=== PATIENT | female | born 1950 | race Caucasian/White ===

== ENCOUNTER → 2016-04-13 | Day surgery (SDC) | payer OTHER, MEDICAID ==
[~2016-04-13] MED LIST: FLUMAZENIL 0.5 MG/5 ML MDV IVP ONE; HEPARIN 1000 UNIT/1 ML MDV ONE; IOPAMIDOL (ISOVUE-300) 100 ML BTL IV ONE; LABETALOL HCL 5 MG/ML 20 ML MDV ONE; MIDAZOLAM 2 MG/2 ML VIAL ONE; NALOXONE HCL 0.4 MG/ML INJ ONE; PROTAMINE SULFATE 50 MG/5 ML VIAL IVP ONE; fentaNYL 100 MCG/2 ML INJ ONE
--- NOTE | 2016-04-13 18:56 | IR ---
Angiography of Left Brachial Arteriovenous Fistula Venography of Left Hemithorax Balloon Angioplasty of Left Brachial and Basilic Veins History: Prolonged bleeding after dialysis. Previous balloon angioplasty of stenotic outflow vein on January 20, 2016, using 6 mm diameter balloon. The patient says that she had little clinical improvem ent in the problem with prolonged bleeding following that procedure. Consent: Risks and benefits of the procedure were discussed in detail, and informed consent was obta ined. The patient and her daughter accepted risks of bleeding, damage to the fistula, infection, and pulmonary embolism. Medications: Intravenous conscious sedation and analgesia were given under my supervision. Vital sign s, pulse oximetry, and electrocardiogram were monitored. The patient received 2 milligrams of Versed and 100 micrograms of fentanyl intravenously. Other intravenous medications included 20 mg of labetal ol, 2500 units of heparin, and 20 mg of protamine sulfate. Start time: 1003. End time: 1055. Fluoroscopy time in minutes: 4.2. Estimated exposure in milligray: 26. Technique: The left arm antecubital fossa was prepped and draped in sterile fashion. All elements of maximal sterile barrier technique were used, including cap, mask, sterile gown, sterile gloves, large sterile sheath, hand hygiene, and 2% chlorhexidine for cutaneous antisepsis. 1% Xylocaine was used f or local anesthetic. A 4-Mexican microintroducer was placed into the outflow vein of the arteriovenous fistula of the left antecubital fossa, and angiography of the outflow vein was performed. 0.035 long tapered Roadrunner wire was followed by a 6-Mexican sidearm sheath, allowing coaxial placement of a 6 mm diameter x 4 cm long angioplasty balloon, which was used to dilate the outflow vein in 2 places a t upper left humeral levels. A 7 mm diameter x 2 cm long balloon was used to dilate the stenosis at m id humeral level. Reflux angiography of the arterial venous anastomosis was performed by injecting th e sidearm sheath before and following deflation of the balloon. Then, the vein was dilated about 4 cm downstream of the arteriovenous anastomosis with the 7 mm balloon. Angiography of the vein was perfo rmed to assess results. Central venography of left hemithorax was performed. The 7 mm balloon was inf lated at the level of apparent stenosis of left subclavian vein where it passes between the left clav icle and left first rib. There was no waist on the balloon, and the balloon could easily be moved to and fro through this level of apparent stenosis on angiogram. Additional angioplasty was not pursued. Balloon catheter, wire, and the sidearm sheath were removed. Hemostasis was obtained by manual compr ession with a Thrombix patch. The patient tolerated the procedure well and was returned to postproced ure recovery for observation. Findings: The outflow left brachial vein has 50% stenoses at a level 4 cm downstream of the arteriove nous anastomosis, at mid humeral level where the vein has a transverse orientation, and at upper stephanie ral level in 2 different places, the first of which is a 3 cm long segment of irregular vein. Followi ng balloon angioplasty, each site is improved except for the irregular segmental stenosis at upper hu merus level, where improvement is limited and a small amount of extravasation of contrast is demonstr ated. Later, during repeat arteriography, only trace of extravasation is found. Centrally, a smooth s tenosis of the left subclavian vein at the level of the overlap of clavicle and first rib causes no w aist on the 7 mm diameter balloon, which could easily be passed through this area even while inflated . Left axillary vein, brachiocephalic vein, and superior vena cava are widely patent. Impressions: 1. Multifocal stenoses of fistula vein of upper left arm. 2. 7 mm diameter balloon angioplasty of stenoses, with good results at 3 out of 4 of the stenoses. 3. Limited extravasation from one of the angioplasty sites at upper humeral level, with no flow limit ation. 4. Mild stenosis of left subclavian vein. Recommendation: Follow-up angiography in 3 months, or sooner, if problems arise. - - - - - - - - - - - - - - - - - - - - - - - - - - - - - (PQRS measures: Current medications were listed in the medical record, including all known prescripti ons, [id number]-[id number] medications, herbal medications, and nutritional supplements. Tobacco use: None . Prophylactic antibiotic:Unnecessary. VTE prophylaxis: The patient received 2500 units of heparin, i ntravenously.)
== END | disposition home or self-care (01) ==
LOC: FIMAGING 07:46
PROVIDERS: ATTEND Internal Medicine Nephrology
PROC: 057A3ZZ Dilation of Left Brachial Vein, Percutaneous Approach (ICD-10-PCS; principal; 2016-04-13 11:10)
PROC: 057C3ZZ Dilation of Left Basilic Vein, Percutaneous Approach (ICD-10-PCS; principal; 2016-04-13 11:10)
DX: T82.858A Stenosis of other vascular prosthetic devices, implants and grafts, initial encounter (principal); I12.9 Hypertensive chronic kidney disease with stage 1 through stage 4 chronic kidney disease, or unspecified chronic kidney disease; E11.22 Type 2 diabetes mellitus with diabetic chronic kidney disease; I25.10 Atherosclerotic heart disease of native coronary artery without angina pectoris; Z95.5 Presence of coronary angioplasty implant and graft; E03.9 Hypothyroidism, unspecified; N18.9 Chronic kidney disease, unspecified
CPT/HCPCS: C1725; C1769; C1894; J1644; J2250; J2310; J2720; J3010; J3490; Q9967

== ENCOUNTER 2016-04-22 06:30 | Observation (INO) | payer MEDICAID, OTHER ==
--- NOTE | 2016-04-22 06:42 | CPEKG ---
Heart Rate: 58 RR Interval: 1034 P-R Interval: 164 QRSD Interval: 108 QT Interval: 496 QTC Interval: 488 P Lancaster: 24 QRS Lancaster: -26 T Wave Lancaster: 169 EKG Severity - ABNORMAL ECG - EKG Impression: SINUS RHYTHM EKG Impression: INCOMPLETE RIGHT BUNDLE BRANCH BLOCK EKG Impression: LVH WITH SECONDARY REPOLARIZATION ABNORMALITY EKG Impression: BORDERLINE PROLONGED QT INTERVAL EKG Impression: Similar to previous Electronically Signed By: Howard Barrios 22-Apr-2016 07:14:57
[2016-04-22] MEDS ORDERED: MAALOX/LIDO/HYOSC GI COCKTAIL 55 ML BOTTLE PO ONE (06:48)
[2016-04-22] MEDS ORDERED: MAALOX/LIDO/HYOSC GI COCKTAIL 55 ML BOTTLE ONE (06:49)
[2016-04-22] MEDS ORDERED: ONDANSETRON 4 MG/2 ML VIAL IVP ONE (06:52)
[2016-04-22 06:55] LABS: % IMMATURE GRANULYOCYTES 0.4 % (0.0-1.1); ABSOLUTE IMMATURE GRANULOCYTES 0.01 10^3/uL (0.00-0.10); ADD DIFF? NO; ADD MORPH? NO; ADD SCAN? NO; ATYPICAL LYMPHOCYTE FLAG 10 (0-99); FRAGMENT RBC FLAG 0 (0-99); HEMATOCRIT 32.4 % (38.0-47.0); HEMOGLOBIN 10.7 g/dL (12.6-16.3); LEFT SHIFT FLG 0 (0-99); LIPEMIA HEMOLYSIS FLAG 80 (0-99); MEAN CELL HEMOGLOBIN 31.7 pg (27.9-34.1); MEAN CELL VOLUME 95.9 fL (81.5-99.8); MEAN PLATELET VOLUME 10.4 fL (8.7-11.7); PLATELET CLUMPS FLAG 10 (0-99); PLATELET COUNT 68 10^3/uL (150-400); RED BLOOD CELL COUNT 3.38 10^6/uL (4.18-5.33); RED CELL DISTRIBUTION WIDTH 14.4 % (11.5-15.2)
[2016-04-22] MEDS ORDERED: fentaNYL 100 MCG/2 ML INJ IVP ONE (06:59)
[2016-04-22] MEDS ORDERED: fentaNYL 100 MCG/2 ML INJ ONE (07:01)
[2016-04-22 07:13] LABS: ANION GAP 16 mEq/L (8-16); CALCIUM 9.4 mg/dL (8.5-10.4); CARBON DIOXIDE 25 mEq/l (22-31); CHLORIDE 103 mEq/L (97-110); GLOMERULAR FILTRATION RATE 11; GLUCOSE 133 mg/dL (70-100); POTASSIUM 4.4 mEq/L (3.5-5.2); SODIUM 144 mEq/L (134-144)
--- NOTE | 2016-04-22 07:18 | EDPHY ---
H & P Stated Complaint: epigastric chest pain and RUQ abdominal pain 12/20 since 05 Time Seen by Provider: 04/22/16 06:59 HPI/ROS: CHIEF COMPLAINT: Chest and epigastric pain HISTORY OF PRESENT ILLNESS: The patient is a 65-year-old female with a history of his CHF, diabetes, renal failure on dialysis with a left arm fistula and coronary artery disease with 2 stents. She also had a myocardial perforation after catheter placement 2 years ago that required cardiac repair. She comes to the emergency department complaining of chest pain that began around 530 this morning and radiates to her back. She denies shortness of breath. It is now radiating to her epigastrium and right upper quadrant. She has a history of cholecystectomy. History of liver or pancreatic disease. No nausea vomiting. She was diaphoretic initially but is not now. She has not had a fever or recent illness. She did have some clotting of her fistula in the left arm 2 weeks ago and her son states that she had 3 balloons placed in it. REVIEW OF SYSTEMS: Constitutional: denies: chills, fever, recent illness, recent injury EENTM: denies: blurred vision, double vision, nose congestion Respiratory: denies: cough, shortness of breath Cardiac: See HPI Gastrointestinal/Abdominal: denies: abdominal pain, diarrhea, nausea, vomiting, blood streaked stools Genitourinary: denies: dysuria, frequency, hematuria, pain Musculoskeletal: denies: joint pain, muscle pain Skin: denies: lesions, rash, jaundice, bruising Neurological: denies: headache, numbness, paresthesia, tingling, dizziness, weakness Hematologic/Lymphatic: denies: blood clots, easy bleeding, easy bruising Immunologic/allergic: denies: HIV/AIDS, transplant EXAM: GENERAL: Well-appearing, well-nourished and in no acute distress. HEAD: Atraumatic, normocephalic. EYES: Pupils equal round and reactive to light, extraocular movements intact, sclera anicteric, conjunctiva are normal. ENT: TMs normal, nares patent, oropharynx clear without exudates. Moist mucous membranes. NECK: Normal range of motion, supple without lymphadenopathy or JVD. LUNGS: Breath sounds clear to auscultation bilaterally and equal. No wheezes rales or rhonchi. HEART: Loud systolic murmur, regular rhythm ABDOMEN: Epigastric pain and mild tenderness, no rebound or guarding BACK: No CVA tenderness, no spinal tenderness, step-offs or deformities EXTREMITIES: Normal range of motion, no pitting or edema. No clubbing or cyanosis. NEUROLOGICAL: Cranial nerves II through XII grossly intact. Normal speech, normal gait. 5/5 strength, normal movement in all extremities, normal sensation PSYCH: Normal mood, normal affect. SKIN: Warm, dry, normal turgor, no visible rashes or lesions. Source: Patient, Family, Old records Exam Limitations: No limitations - Personal History Current Tetanus Diphtheria and Acellular Pertussis (TDAP): Yes Tetanus Vaccine Date: per previous admission - Medical/Surgical History Hx Asthma: No Hx Chronic Respiratory Disease: No Hx Diabetes: Yes Hx Cardiac Disease: Yes Hx Renal Disease: Yes Hx Cirrhosis: No Hx Alcoholism: No Hx HIV/AIDS: No Hx Splenectomy or Spleen Trauma: No Other PMH: CHF,RENAL DIALYSIS T/TH/SAT, HTN, KIDNEY DISEASE, STRESS-DEPRESSION, ABDOMINAL AND LEG CRAMPING DURING DIALYSIS PULMONARY HTN, SLEEP APNEA O2 AT NIGHT, left arm fistula, myocardial surgical repair, cholecystectomy, cardiac stenting - Family History Significant Family History: Hypertension - Social History Smoking Status: Never smoked Alcohol Use: Sober Drug Use: None Constitutional: Initial Vital Signs Temperature (C) 36.6 C 04/22/16 06:40 Heart Rate 56 L 04/22/16 06:40 Respiratory Rate 22 H 04/22/16 06:40 Blood Pressure 176/73 H 04/22/16 06:40 O2 Sat (%) 96 04/22/16 06:40 O2 Delivery Mode Nasal Cannula O2 (L/minute) 2 Allergies/Adverse Reactions: aspirin Allergy (Verified 04/22/16 06:40) morphine Allergy (Verified 04/22/16 06:40) NSAIDS (Non-Steroidal Anti-Inflamma Allergy (Verified 04/22/16 06:40) Home Medications: Medication Instructions Recorded Labetalol HCl [Trandate 100 mg (*)] 100 mg PO BID 08/24/15 amLODIPine BESYLATE [Norvasc 10 mg 10 mg PO DAILY 08/24/15 (*)] Losartan Potassium [Cozaar 50 mg 100 mg PO DAILY 09/22/15 (*)] hydrALAZINE [Apresoline] 25 mg PO DAILY 10/06/15 Levothyroxine [Synthroid 100 mcg 100 mcg PO DAILY06 01/16/16 (*)] Medical Decision Making - Diagnostics EKG Interpretation: An EKG obtained and was read and documented in trace view. Please see trace view for full reading and report. Sinus rhythm, LVH with repolarization abnormality, T-wave inversions similar to previous Imaging: Results: CT scan of the chest angiogram was obtained. The results of the study are negative for acute dissection or PE or pericardial effusion . The study was read by Dr. Jason Cruz. I viewed the images myself on the PACS system. ED Course/Re-evaluation: We discussed the patient's initial lab work and CT scan. They are reassuring. I will admit her for continued chest pain. I spoke with hospital service agrees. Differential Diagnosis: Partial list of the Differential diagnosis considered include but were not limited to; acute coronary disease, dissection, pericardial effusion, PE and although unlikely based on the history and physical exam, I also considered pneumonia, pneumothorax, biliary disease, hepatitis. - Data Points Laboratory Results: Laboratory Results 04/22/16 06:45 04/22/16 06:45 04/22/16 06:45 WBC 2.51 L 10^3/uL (3.80-9.50) RBC 3.38 L 10^6/uL (4.18-5.33) Hgb 10.7 L g/dL (12.6-16.3) Hct 32.4 L % (38.0-47.0) MCV 95.9 fL (81.5-99.8) MCH 31.7 pg (27.9-34.1) MCHC 33.0 g/dL (32.4-36.7) RDW 14.4 % (11.5-15.2) Plt Count 68 L 10^3/uL (150-400) MPV 10.4 fL (8.7-11.7) Neut % (Auto) 67.3 % (39.3-74.2) Lymph % (Auto) 22.3 % (15.0-45.0) Sebastian % (Auto) 9.6 % (4.5-13.0) Eos % (Auto) 0.0 L % (0.6-7.6) Baso % (Auto) 0.4 % (0.3-1.7) Nucleat RBC Rel Count 0.0 % (0.0-0.2) Absolute Neuts (auto) 1.69 L 10^3/uL (1.70-6.50) Absolute Lymphs (auto) 0.56 L 10^3/uL (1.00-3.00) Absolute Monos (auto) 0.24 L 10^3/uL (0.30-0.80) Absolute Eos (auto) 0.00 L 10^3/uL (0.03-0.40) Absolute Basos (auto) 0.01 L 10^3/uL (0.02-0.10) Absolute Nucleated RBC 0.00 10^3/uL (0-0.01) Immature Gran % 0.4 % (0.0-1.1) Immature Gran # 0.01 10^3/uL (0.00-0.10) Sodium 144 mEq/L (134-144) Potassium 4.4 mEq/L (3.5-5.2) Chloride 103 mEq/L (97-110) Carbon Dioxide 25 mEq/l (22-31) Anion Gap 16 mEq/L (8-16) BUN 24 H mg/dL (7-23) Creatinine 4.0 H mg/dL (0.6-1.0) Estimated GFR 11 Glucose 133 H mg/dL (70-100) Calcium 9.4 mg/dL (8.5-10.4) Total Bilirubin 1.4 mg/dL (0.1-1.4) Conjugated Bilirubin 0.9 H mg/dL (0.0-0.5) Unconjugated Bilirubin 0.5 mg/dL (0.0-1.1) AST 72 H IU/L (14-46) ALT 50 IU/L (9-52) Alkaline Phosphatase 127 H IU/L (38-126) Troponin I 0.024 ng/mL (0-0.034) Total Protein 6.7 g/dL (6.3-8.2) Albumin 4.1 g/dL (3.5-5.0) Lipase 129.0 IU/L (23-300) Medications Given: Discontinued Medications Fentanyl (Sublimaze) 0 mcg IVP EDNOW ONE Stop: 04/22/16 07:00 Last Admin: 04/22/16 07:05 Dose: 100 mcg Hydromorphone HCl (Dilaudid) 1 mg IVP EDNOW ONE Stop: 04/22/16 09:54 Last Admin: 04/22/16 09:58 Dose: 1 mg Miscellaneous Medication (Gi Cocktail) 55 ml PO EDNOW ONE Stop: 04/22/16 06:49 Last Admin: 04/22/16 06:48 Dose: 55 ml Ondansetron HCl (Zofran) 4 mg IVP EDNOW ONE Stop: 04/22/16 06:53 Last Admin: 04/22/16 06:55 Dose: 4 mg Departure - Departure Disposition: [facility] Inpatient Acute Clinical Impression: Chest pain Qualifiers: Chest pain type: unspecified Qualifier Code: (R07.9) Chest pain, unspecified Condition: Fair
[2016-04-22 07:22] LABS: TROPONIN I 0.024 ng/mL (0-0.034)
[2016-04-22] MEDS ORDERED: IOPAMIDOL (ISOVUE 370) 100 ML BTL IV ONE (07:24)
[2016-04-22 07:36] LABS: ALBUMIN 4.1 g/dL (3.5-5.0); BILIRUBIN,TOTAL 1.4 mg/dL (0.1-1.4); BILIRUBIN-CONJUGATED 0.9 mg/dL (0.0-0.5); BILIRUBIN-UNCONJUGATED 0.5 mg/dL (0.0-1.1); TOTAL PROTEIN 6.7 g/dL (6.3-8.2)
--- NOTE | 2016-04-22 08:22 | CT ---
CT Pulmonary Angiogram Clinical Indications: Chest pain in a 65-year-old female; evaluate for pulmonary embolic disease. Technique: Thinly collimated multidetector helical CT imaging was performed through the chest while 90 mL of Isovue-370 were injected intravenously without complication. The images were obtained at 4 mm thickness and reconstructed at 1.5 mm thickness. Sagittal and coronal reconstructions were perform ed. The examination is reviewed on the workstation by the interpreting physician at multiple window/l evel settings. Dose reduction techniques were utilized. Findings: Chest: There is minimal basilar atelectasis, otherwise, the lungs are clear. The heart is enlarged. P rominent coronary arterial calcifications are noted. There may be a minimal pericardial effusion. No pleural effusion is identified. Mild elevation of the right hemidiaphragm is seen. Hilar and mediasti nal contours are normal. There are no masses or noncalcified pulmonary nodules. The upper abdomen is negative for acute abnormality on this arterial phase study. CT Pulmonary Angiogram: The pulmonary arterial system is well opacified. No intraluminal filling d efects are seen to suggest acute or chronic pulmonary embolic disease. No vascular malformations are seen. The thoracic aorta has a normal contour without evidence of aneurysm or dissection. There is m inimal calcified aortic plaque formation. There is also calcification at the origin of the left subcl brad artery. Impression: 1. No evidence of pulmonary embolic disease. 2. Cardiac enlargement with associated prominent coronary arterial calcifications. 3. See above report for additional findings. Results called and discussed with RAI REYES at 04/22/2016 8:17
--- NOTE | 2016-04-22 09:09 | DX ---
AP Upright and Lateral Views of the Chest April 22, 2016, at 7:37 a.m. Clinical History: 65-year-old female with chest pain. Comparison Studies: Chest, dated January 16, 2016, October 18, 2015, September 27, 2015, and September 26, 2015. Findings: There are three persistent preethi projected over the left anterolateral chest, present on previous studies from 2016, and some surgical clips in the upper abdomen. The cardiac silhouette veronica ins enlarged. There is mild peribronchial thickening. There is no alveolar consolidation, peripheral interstitial edema, or pleural effusion. The pulmonary vasculature is equalized. Telemetry monitoring lead lines and oxygen tubing are present. The osseous structures are age-appropriate. Impression: Cardiomegaly with mild pulmonary venous hypertension, but no focal infiltrate or cardioge jacek pulmonary edema. The patient had a CTA of the chest this morning, and that report should also be referenced.
[2016-04-22] MEDS ORDERED: HYDROmorphONE/DILAUDID 1 MG/ML SYR IVP ONE (09:53)
[2016-04-22] MEDS ORDERED: ONDANSETRON 4 MG/2 ML VIAL IVP PRN (13:26)
[2016-04-22] MEDS ORDERED: ONDANSETRON DISINTEGRATING 4 MG TAB PO PRN (13:26)
[2016-04-22] MEDS ORDERED: ACETAMINOPHEN 325 MG TAB PO PRN (13:26)
[2016-04-22] MEDS ORDERED: PROMETHAZINE HCL 25 MG TAB PO PRN (14:36)
[2016-04-22] MEDS ORDERED: PROMETHAZINE HCL 25 MG/ML INJ IVP PRN (14:36)
[2016-04-22] MEDS ORDERED: HYDROmorphONE/DILAUDID 2 MG TAB PO PRN (14:37)
[2016-04-22] MEDS ORDERED: HYDROmorphONE/DILAUDID 1 MG/ML SYR IVP PRN (14:37)
[2016-04-22] MEDS: hydrALAZINE 25 MG TAB PO SCH (15:33)
[2016-04-22] MEDS: SIMETHICONE 80 MG TAB CHEW PO PRN (15:52)
--- NOTE | 2016-04-22 17:52 | PDGENHP ---
History and Physical - Chief Complaint Acute chest pain - History of Present Illness PCP Dr. Bowman Primary medical biller coder: Dr. Cruz HPI: 65-year-old female presents with acute chest pain characterized as a sharp bloating discomfort located in the mid chest as well as mid epigastric area and upper abdomen with associated diaphoresis and bloating as well as increased flatulence on the day prior to this presentation. The onset of her chest discomfort was 5:30 a.m. occurred while she was making her son breakfast. She reports that radiated to her back and was immediately associated with an overwhelming feeling of warmth. Duration was persistent thereafter and the abdominal component to the symptoms as persisted up until the time of receiving some pain medication in the emergency department which seemed to modestly alleviate the symptoms. She reports that she had a normal bowel movement on the morning of this presentation and she does not regularly make urine. She did attempt oral intake on the morning of this presentation but water and a GI cocktail seemed to exacerbate her abdominal symptoms. Prior to this presentation, the patient reports that she had otherwise been feeling well. She expresses that she is not particularly physically active but she is able to ambulate up stairs without becoming particularly short of breath. She has otherwise been taking all of her home medications and they are not recently been any changes. She reports that she went to hemodialysis on the day prior to this presentation. History Information - Allergies/Home Medication List Allergies/Adverse Reactions: aspirin Allergy (Verified 04/22/16 06:40) morphine Allergy (Verified 04/22/16 06:40) NSAIDS (Non-Steroidal Anti-Inflamma Allergy (Verified 04/22/16 06:40) Home Medications: Labetalol HCl [Trandate 100 mg (*)] 100 mg PO BID 08/24/15 [Last Taken 04/21/16] amLODIPine BESYLATE [Norvasc 10 mg (*)] 10 mg PO DAILY 08/24/15 [Last Taken 11/27] Losartan Potassium [Cozaar 50 mg (*)] 100 mg PO DAILY 09/22/15 [Last Taken 04/21] hydrALAZINE [Apresoline] 25 mg PO DAILY 10/06/15 [Last Taken 04/21/16] Levothyroxine [Synthroid 100 mcg (*)] 100 mcg PO DAILY06 01/16/16 [Last Taken ] I have personally reviewed and updated: family history, medical history, social history, surgical history - Past Medical History coronary artery disease (With prior PCI), CHF (Diastolic), diabetes type 2, ESRD (On Monday hemodialysis), hyperlipidemia Additional medical history: ESRD on HD TTS via R femoral vein tunneled catheter. DM2 (not currently on meds). HTN with labile BP. CAD s/p PCI. h/o cardiac tamponade requiring thoractomy to repair cardiac injury sustained with dialysis catheter placement (09/2015). Serratia bacteremia from infected catheter site - Surgical History Additional surgical history: LUE AV fistula. Cholecystectomy. Thoractomy for cardiac injury repair - Family History Additional family history: Brother: CKD - Social History Smoking Status: Never smoked Alcohol Use: Sober Drug Use: None Additional social history: Pt currently lives with son, is independent in ADLs. Review of Systems ROS: 10pt was reviewed & negative except for what was stated in HPI & below Gastrointestinal: Reports: vomitting, abdominal pain, other (Blood) Physical Exam Temp Pulse Resp BP Pulse Ox 36.6 C 58 L 18 175/80 H 97 04/22/16 15:28 04/22/16 15:28 04/22/16 15:28 04/22/16 15:33 04/22/16 15:28 O2 (L/minute) 2 Constitutional: no apparent distress, appears nourished, chronically ill appearing, uncomfortable Eyes: PERRL, anicteric sclera, EOMI Ears, Nose, Mouth, Throat: moist mucous membranes, hearing normal, ears appear normal, no oral mucosal ulcers Cardiovascular: systolic murmur (3/6 systolic murmur at the sternum and apex), edema (Trace bilateral lower extremity), No irregularly irregular, No tachycardia Respiratory: no respiratory distress, no rales or rhonchi, clear to auscultation Gastrointestinal: tenderness (Mild to moderate palpation), distension ( Moderately), other (Bloated), No normoactive bowel sounds (Hyperactive bowel sounds), No guarding Skin: warm, normal color, no rashes or abrasions, no fluctuance, no induration, other (No erythema at the AV fistula site), No mottled Neurologic: AAOx3, sensation intact bilaterally, No weakness Psychiatric: interacting appropriately, not anxious, not encephalopathic, thought process linear Lab Data & Imaging Review 04/22/16 06:45 04/22/16 06:45 WBC 2.51 10^3/uL (3.80-9.50) L 04/22/16 06:45 RBC 3.38 10^6/uL (4.18-5.33) L 04/22/16 06:45 Hgb 10.7 g/dL (12.6-16.3) L 04/22/16 06:45 Hct 32.4 % (38.0-47.0) L 04/22/16 06:45 MCV 95.9 fL (81.5-99.8) 04/22/16 06:45 MCH 31.7 pg (27.9-34.1) 04/22/16 06:45 MCHC 33.0 g/dL (32.4-36.7) 04/22/16 06:45 RDW 14.4 % (11.5-15.2) 04/22/16 06:45 Plt Count 68 10^3/uL (150-400) L 04/22/16 06:45 MPV 10.4 fL (8.7-11.7) 04/22/16 06:45 Neut % (Auto) 67.3 % (39.3-74.2) 04/22/16 06:45 Lymph % (Auto) 22.3 % (15.0-45.0) 04/22/16 06:45 [place] % (Auto) 9.6 % (4.5-13.0) 04/22/16 06:45 Eos % (Auto) 0.0 % (0.6-7.6) L 04/22/16 06:45 Baso % (Auto) 0.4 % (0.3-1.7) 04/22/16 06:45 Nucleat RBC Rel Count 0.0 % (0.0-0.2) 04/22/16 06:45 Absolute Neuts (auto) 1.69 10^3/uL (1.70-6.50) L 04/22/16 06:45 Absolute Lymphs (auto) 0.56 10^3/uL (1.00-3.00) L 04/22/16 06:45 Absolute Monos (auto) 0.24 10^3/uL (0.30-0.80) L 04/22/16 06:45 Absolute Eos (auto) 0.00 10^3/uL (0.03-0.40) L 04/22/16 06:45 Absolute Basos (auto) 0.01 10^3/uL (0.02-0.10) L 04/22/16 06:45 Absolute Nucleated RBC 0.00 10^3/uL (0-0.01) 04/22/16 06:45 Immature Gran % 0.4 % (0.0-1.1) 04/22/16 06:45 Immature Gran # 0.01 10^3/uL (0.00-0.10) 04/22/16 06:45 Sodium 144 mEq/L (134-144) 04/22/16 06:45 Potassium 4.4 mEq/L (3.5-5.2) 04/22/16 06:45 Chloride 103 mEq/L (97-110) 04/22/16 06:45 Carbon Dioxide 25 mEq/l (22-31) 04/22/16 06:45 Anion Gap 16 mEq/L (8-16) 04/22/16 06:45 BUN 24 mg/dL (7-23) H 04/22/16 06:45 Creatinine 4.0 mg/dL (0.6-1.0) H 04/22/16 06:45 Estimated GFR 11 04/22/16 06:45 Glucose 133 mg/dL (70-100) H 04/22/16 06:45 Calcium 9.4 mg/dL (8.5-10.4) 04/22/16 06:45 Total Bilirubin 1.4 mg/dL (0.1-1.4) 04/22/16 06:45 Conjugated Bilirubin 0.9 mg/dL (0.0-0.5) H 04/22/16 06:45 Unconjugated Bilirubin 0.5 mg/dL (0.0-1.1) 04/22/16 06:45 AST 72 IU/L (14-46) H 04/22/16 06:45 ALT 50 IU/L (9-52) 04/22/16 06:45 Alkaline Phosphatase 127 IU/L (38-126) H 04/22/16 06:45 Troponin I 0.024 ng/mL (0-0.034) 04/22/16 06:45 Total Protein 6.7 g/dL (6.3-8.2) 04/22/16 06:45 Albumin 4.1 g/dL (3.5-5.0) 04/22/16 06:45 Lipase 129.0 IU/L (23-300) 04/22/16 06:45 Visualized and Interpreted Chest x-ray results: Yes Chest X-Ray results: other (Mild pulmonary vascular congestion) Visualized and Interpreted EKG results: Yes EKG Interpretation: Positive for: other (Incomplete right bundle branch block with T-wave inversions diffusely throughout) Assessment & Plan Assessment: 65-year-old female presents with acute chest pain in the setting of end-stage renal disease Plan: 1. Chest pain. Acute, new problem this provider, further workup is indicated. Given patient's end-stage renal disease she is high risk for acute coronary syndrome and obstructive coronary process. That being said, patient's presentation is more consistent with viral gastroenteritis given that she has reproducible abdominal symptoms with bloating, hyperactive bowel sounds, abdominal tenderness which seem to predominate her symptomology -cycle troponins -continue monitor on telemetry -treat supportively with pain medication, antiemetics, simethicone 2. ESRD. Chronic, on HD TTHS, Nephrology notified of patient and will perform HD tomorrow -reviewed outside records including 01/22/[address] Carolyn Dial characterizing most recent hospitalization for serratia bacteremia from infected catheter, was removed, received levofloxacin and follows up with Dr. Bullock as outpatient 3. Chronic diastolic CHF. No e/o acute exacerbation, cont anti-HTN Rx 4. CAD. S/p PCI, cont home Rx 5. Anemia of ESRD. No e/o bleed, cont to monitor Diet. Bowel rest, adv in AM if abd symptoms improved PPx. High risk, pharm contraindicated given thrombocytopenia, place SCDs Code. Full Dispo. ADD 04/23, pending further w/u above. D/w Hannah Bonner, she has signed out patient to me for evaluation.
[2016-04-22] MEDS: LABETALOL HCL 100 MG TAB PO SCH (20:07)
[2016-04-22] MEDS: PANTOPRAZOLE SODIUM 40 MG in NS 100 ML IV SCH (22:05)
[2016-04-23 05:27] LABS: % IMMATURE GRANULYOCYTES 0.4 % (0.0-1.1); ABSOLUTE IMMATURE GRANULOCYTES 0.01 10^3/uL (0.00-0.10); ADD DIFF? NO; ADD MORPH? NO; ADD SCAN? NO; ATYPICAL LYMPHOCYTE FLAG 20 (0-99); FRAGMENT RBC FLAG 0 (0-99); HEMATOCRIT 31.2 % (38.0-47.0); HEMOGLOBIN 10.2 g/dL (12.6-16.3); LEFT SHIFT FLG 0 (0-99); LIPEMIA HEMOLYSIS FLAG 80 (0-99); MEAN CELL HEMOGLOBIN 31.4 pg (27.9-34.1); MEAN CELL HEMOGLOBIN CONCENTR. 32.7 g/dL (32.4-36.7); MEAN PLATELET VOLUME 10.6 fL (8.7-11.7); PLATELET CLUMPS FLAG 0 (0-99); PLATELET COUNT 62 10^3/uL (150-400); RED BLOOD CELL COUNT 3.25 10^6/uL (4.18-5.33); RED CELL DISTRIBUTION WIDTH 14.8 % (11.5-15.2)
[2016-04-23 05:47] LABS: ALANINE AMINOTRANSFERASE 150 IU/L (9-52); ALBUMIN 3.6 g/dL (3.5-5.0); ALKALINE PHOSPHATASE 135 IU/L (38-126); ANION GAP 12 mEq/L (8-16); ASPARTATE AMINOTRANSFERASE 137 IU/L (14-46); BILIRUBIN,TOTAL 1.2 mg/dL (0.1-1.4); CALCIUM 8.8 mg/dL (8.5-10.4); CARBON DIOXIDE 27 mEq/l (22-31); CHLORIDE 103 mEq/L (97-110); CREATININE 5.3 mg/dL (0.6-1.0); GLOMERULAR FILTRATION RATE 8; GLUCOSE 73 mg/dL (70-100); MAGNESIUM 2.5 mg/dL (1.6-2.3); POTASSIUM 5.3 mEq/L (3.5-5.2); SODIUM 142 mEq/L (134-144)
[2016-04-23 05:58] LABS: TROPONIN I 0.022 ng/mL (0-0.034)
[2016-04-23] MEDS ORDERED: LEVOTHYROXINE 100 MCG TAB PO SCH (06:00)
[2016-04-23] MEDS ORDERED: LIDOCAINE 1% *Not for Epidural 20 ML MDV ONE (08:00)
[2016-04-23] MEDS ORDERED: LIDOCAINE 1% 30 ML SDV ONE (08:00)
[2016-04-23] MEDS: LABETALOL HCL 100 MG TAB PO SCH (08:38)
[2016-04-23] MEDS: hydrALAZINE 25 MG TAB PO SCH (08:38)
[2016-04-23] MEDS ORDERED: LOSARTAN POTASSIUM 50 MG TAB PO SCH (09:00)
[2016-04-23] MEDS: SIMETHICONE 80 MG TAB CHEW PO PRN (10:08)
[2016-04-23] MEDS ORDERED: PANTOPRAZOLE SODIUM 40 MG TAB PO SCH (10:30)
[2016-04-23] MEDS: PANTOPRAZOLE SODIUM 40 MG in NS 100 ML IV SCH (10:32)
[2016-04-23 11:53] VITALS: PULSE 58
[2016-04-23] MEDS ORDERED: IOPAMIDOL (ISOVUE-300) 100 ML BTL IV ONE (11:57)
--- NOTE | 2016-04-23 14:23 | CT ---
CT Abdomen and Pelvis With Contrast History: Abdominal pain, incarcerated hernia Technique: 128 slice volumetric data set helical CT obtained through the abdomen and pelvis during ruth rafa administration of 90 mL Isovue-300 nonionic contrast without complication. Images are reviewed on the computer workstation. Dose reduction techniques were utilized. Comparison: Chest CTA yesterday Findings: There is a new small posterior right pleural effusion, without adjacent infiltrate or conso lidation. The heart remains enlarged without pericardial effusion. The pulmonary vessels do not appea r plethoric at the bases. There is a small amount of nonacute compression atelectasis in the left cos tophrenic gutter. Abdomen- there is a new small amount of ascites in the upper abdomen. There is body wall edema sugges ting anasarca. Kidneys are atrophic and nonobstructed. The liver and spleen are normal in size and ho mogeneous. The portal vein and splenic vein are patent. Atherosclerotic changes of the normal sized a bdominal aorta are noted. There is no biliary dilatation. The gallbladder has been surgically removed . The gallbladder looks normal. Normal. The adrenal glands and retroperitoneum look normal. There is no ascites or evidence for bowel obstruction. Pelvis: There is a large midline, upper pelvic and lower abdominal wall, defect with peritoneal fat h erniating through the defect. There may be a surgical match anterior to the defect. There is edema an d fluid within the fat of the hernia which may represent peritoneal fluid pooling within the hernia s ac and/or fat necrosis within the hernia sac. There is specifically no bowel within the hernia sac. A verage Hounsfield units are approximately 30. Urinary bladder looks normal. There is no pelvic adenop athy or free fluid. There is no retroperitoneal or inguinal adenopathy. There is minimal diverticulos is of the sigmoid colon without evidence of diverticulitis. There is multilevel degenerative lumbar d isk and facet disease. Impression: Anasarca. Hypoproteinemia? 2. Cardiomegaly without obvious failure. 3. Possible fat necrosis in the ventral hernia. No evidence for incarcerated bowel. General information for patients regarding this examination can be found at [email or web address]. If you have questions or comments about this report, please contact me at [phone] (hospital) or [phone] (cell).
[2016-04-23 17:14] VITALS: BP 179/67; RESP 16; TEMP 97.8; O2SAT 91
--- NOTE | 2016-04-23 17:32 | PDDCSUM ---
Discharge Summary Discharge Summary: DISCHARGE SUMMARY FOLLOW-UP ITEMS: Continue volume removal through dialysis DATE OF ADMISSION: 04/22/2016 DATE OF DISCHARGE: 04/23/2016 DISCHARGE DIAGNOSES: 1. Suspected viral gastroenteritis 2. End-stage renal disease on hemodialysis 3. Acute chest pain 4. Chronic diastolic congestive heart failure CONSULTATIONS: Nephrology for dialysis PROCEDURES / IMAGING: CT of the abdomen with contrast demonstrating ascites and anasarca but no other significant intra-abdominal abnormality, no evidence of incarcerated hernia CHIEF COMPLAINT: Acute chest pain and abdominal pain SUBJECTIVE: Patient reports that her abdominal discomfort is improved and she is tolerating a light diet PHYSICAL EXAM ON DISCHARGE: Systolic blood pressure is 150, heart rate 60, afebrile overnight, satting well on room air comma abdominal exam is benign with no evidence of tender hernia, bowel sounds are somewhat hyperactive LABS ON DISCHARGE: White blood cell count 2400, hemoglobin 10.6, platelets 50412, AST 140, ALT 150 , alk-phos 135, troponin negative x3 HOSPITAL COURSE BY PROBLEM: 1. Suspected viral gastroenteritis. Acute, evidenced by hyperactive bowel sounds, abdominal tenderness, no evidence of other intra-abdominal pathology on CT imaging. Patient responded well to a bowel rest, clear liquid diet, symptomatic care with oral pain medication, antiemetic, anti gas medication, proton pump inhibitor to reduce gastric acid secretion. Patient will be continued on these medications and should follow up with her primary care provider in the outpatient setting within 1 week. 2. Acute chest pain. Atypical, ruled out for acute coronary syndrome with negative troponin x3, patient's presenting symptom was much more consistent with abdominal discomfort and suspected viral gastroenteritis as outlined above. 3. End-stage renal disease on hemodialysis. Patient was dialyzed, she does have some evidence of anasarca and ascites on CT imaging I discussed this with Dr. Espinosa who will communicate to her dialysis center that she should have ongoing fluid removal. 4. Chronic diastolic congestive heart failure. No evidence of acute exacerbation, patient was continued on her home medications. DISCHARGE MEDICATIONS: Please see official discharge medication reconciliation sheet in chart , simethicone 80 mg as needed, Zofran 4 mg as needed, Dilaudid 2 mg as needed, 20 tabs prescribed, pantoprazole 40 mg daily x1 month. DISCHARGE INSTRUCTIONS: Patient should follow up with her primary care provider within 1 week. She should advance her diet as tolerates.
== END 2016-04-23 18:27 | disposition home or self-care (01) ==
LOC: F2W 12:40
PROVIDERS: ADMIT Internal Medicine; ATTEND Internal Medicine
PROC: 5A1D00Z (ICD-10-PCS; principal; 2016-04-22)
DX: R07.9 Chest pain, unspecified (principal); R10.13 Epigastric pain; N18.6 End stage renal disease; I13.2 Hypertensive heart and chronic kidney disease with heart failure and with stage 5 chronic kidney disease, or end stage renal disease; E11.22 Type 2 diabetes mellitus with diabetic chronic kidney disease; I25.10 Atherosclerotic heart disease of native coronary artery without angina pectoris; D63.1 Anemia in chronic kidney disease; E03.9 Hypothyroidism, unspecified; I50.32 Chronic diastolic (congestive) heart failure; F32.9 Major depressive disorder, single episode, unspecified; I27.2 Other secondary pulmonary hypertension; G47.30 Sleep apnea, unspecified; Z99.2 Dependence on renal dialysis; Z95.828 Presence of other vascular implants and grafts; Z95.5 Presence of coronary angioplasty implant and graft
CPT/HCPCS: 71020; 71275; 74177; 93005; 96374; 96375; 97165; 99285; G0378; J1170; J2405; J3010; Q9967

== ENCOUNTER 2016-07-06 19:26 | Inpatient (IN) | payer MEDICAID ==
--- NOTE | 2016-07-06 20:34 | EDPHY ---
H & P Time Seen by Provider: 07/06/16 20:03 HPI/ROS: Chief complaint. Chest pain HPI. 65-year-old female with chest pressure for 2-3 days. It has been fairly constant however it is worse with exertion and better with rest. No radiation of her discomfort. It is central left anterior chest . No significant shortness of breath. She has some nausea. No fever or cough. She has Monday dialysis. She checked her blood sugar this evening it was 130. He no fever or or unusual leg pain or swelling ROS Constitutional. no fever/chills, no weakness Eyes. no problems with vision ENT. no sore throat, no nasal drainage Cardiovascular. Chest pressure Respiratory. no shortness of breath, no cough Abdominal. No abdominal pain. Nausea without vomiting or diarrhea . no problems urinating MS. no calf pain/swelling, no neck/back pain, no joint pain Skin. no rash Lymph. no swollen glands Neuro. no headache, no dizziness, no difficulty walking or with speech Past Medical/Surgical History: Extensive past medical history consisting of congestive heart failure, Monday renal dialysis, hypertension, kidney disease, pulmonary hypertension, sleep apnea, left arm fistula, myocardial surgical repair, cholecystectomy, coronary artery disease with stents Social History: , nonsmoker, no alcohol Smoking Status: Never smoked Physical Exam: General Appearance: Alert well-developed female moderate distress vital signs significant for blood pressure 216/70 Eyes: Pupils equal and round no pallor or injection. ENT, Mouth: Mucous membranes are moist. Respiratory: There are no retractions, lungs are clear to auscultation. Cardiovascular: Regular rate and rhythm. 2/6 systolic decrescendo murmur Gastrointestinal: Abdomen is soft and nontender, no masses, bowel sounds normal. Neurological: Awake and alert, sensory and motor exams grossly normal. Skin: Warm and dry, no rashes. Musculoskeletal: Neck is supple nontender. Extremities symmetrical, full range of motion. Psychiatric: Patient is oriented X 3, there is no agitation. Constitutional: Initial Vital Signs Temperature (C) 36.5 C 07/06/16 19:49 Heart Rate 71 07/06/16 19:49 Respiratory Rate 14 07/06/16 19:49 Blood Pressure 216/70 H 07/06/16 19:49 O2 Sat (%) 95 07/06/16 19:49 O2 Delivery Mode Room Air Allergies/Adverse Reactions: aspirin Allergy (Severe, Verified 07/04/16 16:46) NSAIDS (Non-Steroidal Anti-Inflamma Allergy (Severe, Verified 07/04/16 16:46) Swelling/neck,face,throat morphine Allergy (Intermediate, Verified 07/04/16 16:47) Home Medications: Medication Instructions Recorded Labetalol HCl [Trandate 100 mg (*)] 200 mg PO BID 08/24/15 amLODIPine BESYLATE [Norvasc 10 mg 10 mg PO DAILY 08/24/15 (*)] Losartan Potassium [Cozaar 50 mg 100 mg PO DAILY 09/22/15 (*)] hydrALAZINE [Apresoline] 25 mg PO TID 10/06/15 Levothyroxine [Synthroid 100 mcg 100 mcg PO DAILY 01/16/16 (*)] Acetaminophen [Tylenol 325mg (*)] 650 mg PO Q4HRS PRN #0 tab 04/23/16 Hyoscyamine 125 mg PO TID 07/04/16 Pantoprazole Sodium [Protonix 40mg 20 mg PO BID 07/04/16 (*)] Medical Decision Making - Diagnostics EKG Interpretation: EKG interpreted by me shows normal sinus rhythm normal interval. There is left axis deviation. There is a he right bundle branch block. LVH. No arrhythmia. No significant ST elevation or depression. There is inversion of T-waves in lateral leads. There is this is unchanged from previous EKG. Rate is 62 Imaging Results: Imaging Impressions Chest X-Ray 07/06/16 20:07 Impression: Cardiomegaly. Pulmonary venous hypertension. No peg failure. One-view chest x-ray interpreted by me shows LVH. No obvious pneumonia Procedures: IV normal saline, monitor. No aspirin as she has allergies to aspirin and end- stage renal disease ED Course/Re-evaluation: Re-evaluation 935. Patient is stable. She and I discussed imaging lab EKG results. We discussed treatment plan including recommendation for admission. She expresses understanding and agreement I consulted and discussed case with Dr. Sibley, hospitalist, who agrees to the admission Patient given GI cocktail Differential Diagnosis: Patient is at risk for acute coronary syndrome. She has had known coronary artery disease with stents. At this point no obvious acute coronary syndrome. I considered pneumonia as well as hiatal hernia and pancreatitis - Data Points Laboratory Results: Laboratory Results 07/06/16 20:30 07/06/16 20:30 07/06/16 07/06/16 20:30 20:30 WBC 2.37 10^3/uL L 10^3/uL (3.80-9.50) RBC 2.92 10^6/uL L 10^6/uL (4.18-5.33) Hgb 9.0 g/dL L g/dL (12.6-16.3) Hct 26.7 % L % (38.0-47.0) MCV 91.4 fL fL (81.5-99.8) MCH 30.8 pg pg (27.9-34.1) MCHC 33.7 g/dL g/dL (32.4-36.7) RDW 13.6 % % (11.5-15.2) Plt Count 60 10^3/uL L 10^3/uL (150-400) MPV 10.3 fL fL (8.7-11.7) Neut % (Auto) 61.6 % % (39.3-74.2) Lymph % (Auto) 25.3 % % (15.0-45.0) [place] % (Auto) 12.7 % % (4.5-13.0) Eos % (Auto) 0.0 % L % (0.6-7.6) Baso % (Auto) 0.4 % % (0.3-1.7) Nucleat RBC Rel Count 0.0 % % (0.0-0.2) Absolute Neuts (auto) 1.46 10^3/uL L 10^3/uL (1.70-6.50) Absolute Lymphs (auto) 0.60 10^3/uL L 10^3/uL (1.00-3.00) Absolute Monos (auto) 0.30 10^3/uL 10^3/uL (0.30-0.80) Absolute Eos (auto) 0.00 10^3/uL L 10^3/uL (0.03-0.40) Absolute Basos (auto) 0.01 10^3/uL L 10^3/uL (0.02-0.10) Absolute Nucleated RBC 0.00 10^3/uL 10^3/uL (0-0.01) Immature Gran % 0.0 % % (0.0-1.1) Immature Gran # 0.00 10^3/uL 10^3/uL (0.00-0.10) Sodium 142 mEq/L mEq/L (134-144) Potassium 3.7 mEq/L mEq/L (3.5-5.2) Chloride 99 mEq/L mEq/L (97-110) Carbon Dioxide 28 mEq/l mEq/l (22-31) Anion Gap 15 mEq/L mEq/L (8-16) BUN 33 mg/dL H mg/dL (7-23) Creatinine 4.9 mg/dL H mg/dL (0.6-1.0) Estimated GFR 9 Glucose 130 mg/dL H mg/dL (70-100) Calcium 9.5 mg/dL mg/dL (8.5-10.4) Troponin I 0.026 ng/mL ng/mL (0-0.034) Lipase 87.0 IU/L IU/L (23-300) Departure - Departure Disposition: [facility] Inpatient Acute Clinical Impression: Chest pain Qualifiers: Chest pain type: unspecified Qualified Code(s): R07.9 - Chest pain, unspecified Condition: Fair Referrals: HILDA AUGUSTE [Primary Care Provider] - As per Instructions
--- NOTE | 2016-07-06 20:42 | CPEKG ---
Heart Rate: 62 RR Interval: 968 P-R Interval: 160 QRSD Interval: 110 QT Interval: 492 QTC Interval: 500 P Hinckley: 13 QRS [place]ley: -21 T Wave [place]: 145 EKG Severity - ABNORMAL ECG - EKG Impression: SINUS RHYTHM EKG Impression: PROBABLE LEFT ATRIAL ABNORMALITY EKG Impression: INCOMPLETE RIGHT BUNDLE BRANCH BLOCK EKG Impression: LVH WITH IVCD AND SECONDARY REPOL ABNRM Electronically Signed By: Jack Sarmiento 06-Jul-2016 21:10:19
[2016-07-06 20:44] LABS: ADD DIFF? NO; ADD MORPH? NO; ADD SCAN? NO; ATYPICAL LYMPHOCYTE FLAG 0 (0-99); FRAGMENT RBC FLAG 0 (0-99); HEMATOCRIT 26.7 % (38.0-47.0); LEFT SHIFT FLG 0 (0-99); LIPEMIA HEMOLYSIS FLAG 80 (0-99); MEAN CELL HEMOGLOBIN 30.8 pg (27.9-34.1); MEAN CELL HEMOGLOBIN CONCENTR. 33.7 g/dL (32.4-36.7); MEAN CELL VOLUME 91.4 fL (81.5-99.8); MEAN PLATELET VOLUME 10.3 fL (8.7-11.7); PLATELET CLUMPS FLAG 0 (0-99); PLATELET COUNT 60 10^3/uL (150-400); RED BLOOD CELL COUNT 2.92 10^6/uL (4.18-5.33); RED CELL DISTRIBUTION WIDTH 13.6 % (11.5-15.2)
[2016-07-06 21:05] LABS: ANION GAP 15 mEq/L (8-16); CALCIUM 9.5 mg/dL (8.5-10.4); CARBON DIOXIDE 28 mEq/l (22-31); CHLORIDE 99 mEq/L (97-110); CREATININE 4.9 mg/dL (0.6-1.0); GLOMERULAR FILTRATION RATE 9; GLUCOSE 130 mg/dL (70-100); POTASSIUM 3.7 mEq/L (3.5-5.2); SODIUM 142 mEq/L (134-144)
[2016-07-06 21:34] LABS: TROPONIN I 0.026 ng/mL (0-0.034)
[2016-07-06] MEDS ORDERED: MAG HYDROX/AL HYDROX/SIMETH 30 ML UDCUP PO ONE (21:36)
[2016-07-06] MEDS ORDERED: LIDOCAINE 2% VISCOUS 15 ML UDCUP PO ONE (21:36)
[2016-07-06] MEDS ORDERED: HYOSCYAMINE SULFATE 0.125 MG TAB PO ONE (21:36)
[2016-07-06] MEDS ORDERED: ONDANSETRON 4 MG/2 ML VIAL IVP ONE (21:42)
[2016-07-06] MEDS ORDERED: ONDANSETRON 4 MG/2 ML VIAL ONE (21:43)
[2016-07-07] MEDS ORDERED: ACETAMINOPHEN 325 MG TAB PO PRN (01:26)
[2016-07-07] MEDS ORDERED: ONDANSETRON 4 MG/2 ML VIAL IVP PRN (01:26)
[2016-07-07] MEDS ORDERED: ONDANSETRON DISINTEGRATING 4 MG TAB PO PRN (01:26)
[2016-07-07] MEDS ORDERED: oxyCODONE IR 5 MG TAB PO PRN (01:26)
--- NOTE | 2016-07-07 03:27 | PDGENHP ---
History and Physical - Chief Complaint chest pain - History of Present Illness Patient is a 65-year-old female with ESRD (HD via left upper extremity AVF on TTS), diastolic CHF, hypertension, hyperlipidemia, CAD and DM 2 who presents to the ED with complaint intermittent chest tightness. Patient states for the past 3 or 4 days she has been feeling tightness in his the center of her chest, nonradiating not associated with shortness of breath, palpitations or lightheadedness. Initially the tightness would last seconds to minutes and resolve spontaneously, however today she felt the pain persisted which is why she decided to come to the ED for further evaluation. She feels her pain is originating in her epigastrium, sometimes burning in nature. She denies any associated nausea, vomiting, diarrhea. She also denies any recent fever, chills , coughing, congestion. On arrival to the ED patient was markedly hypertensive, but afebrile and saturating well on room air. Labs revealed CBC at baseline, negative troponin and BMP at her baseline. EKG was unremarkable for ischemic changes and chest x- ray did not show acute pathology. She was then admitted to the hospital service for further management. History Information - Allergies/Home Medication List Allergies/Adverse Reactions: aspirin Allergy (Severe, Verified 07/04/16 16:46) NSAIDS (Non-Steroidal Anti-Inflamma Allergy (Severe, Verified 07/04/16 16:46) Swelling/neck,face,throat morphine Allergy (Intermediate, Verified 07/04/16 16:47) Home Medications: Labetalol HCl [Trandate 100 mg (*)] 200 mg PO BID 08/24/15 [Last Taken 04/21/16] amLODIPine BESYLATE [Norvasc 10 mg (*)] 10 mg PO DAILY 08/24/15 [Last Taken 11/27] Losartan Potassium [Cozaar 50 mg (*)] 100 mg PO DAILY 09/22/15 [Last Taken 04/21] hydrALAZINE [Apresoline] 25 mg PO TID 10/06/15 [Last Taken 04/21/16] Levothyroxine [Synthroid 100 mcg (*)] 100 mcg PO DAILY 01/16/16 [Last Taken 11/27] Hyoscyamine 125 mg PO TID 07/04/16 [Last Taken Unknown] Pantoprazole Sodium [Protonix 40mg (*)] 20 mg PO BID 07/04/16 [Last Taken Unknown] I have personally reviewed and updated: family history, medical history, social history, surgical history - Past Medical History coronary artery disease (With prior PCI), CHF (Diastolic), diabetes type 2, ESRD (On Monday hemodialysis), hyperlipidemia Additional medical history: ESRD on HD TTS via R femoral vein tunneled catheter. DM2 (not currently on meds). HTN with labile BP. CAD s/p PCI. h/o cardiac tamponade requiring thoractomy to repair cardiac injury sustained with dialysis catheter placement (09/2015). Serratia bacteremia from infected catheter site - Surgical History Additional surgical history: LUE AV fistula. Cholecystectomy. Thoractomy for cardiac injury repair - Family History Additional family history: Brother: CKD - Social History Smoking Status: Never smoked Additional social history: Pt currently lives with son, is independent in ADLs. Review of Systems ROS: 10pt was reviewed & negative except for what was stated in HPI & below Physical Exam Temp Pulse Resp BP Pulse Ox 36.4 C 59 L 17 178/60 H 100 07/06/16 23:55 07/06/16 23:55 07/06/16 23:55 07/06/16 23:55 07/06/16 23:55 O2 (L/minute) 2 Constitutional: not in pain, chronically ill appearing, obese Eyes: PERRL, anicteric sclera, EOMI Ears, Nose, Mouth, Throat: moist mucous membranes, hearing normal, ears appear normal, no oral mucosal ulcers Cardiovascular: regular rate and rhythym, no murmur, rub, or gallop, pulses symmetric bilaterally, No JVD, No edema Peripheral Pulses: 2+: dorsalis-pedis (R), dorsalis-pedis (L) Respiratory: no respiratory distress, no rales or rhonchi, clear to auscultation Gastrointestinal: normoactive bowel sounds, soft, non-tender abdomen, no palpable masses, other ( Reducible midline abdominal hernia), No guarding, No rebound Genitourinary: no bladder fullness, no bladder tenderness Skin: warm, normal color, no rashes or abrasions, no fluctuance, no induration, No mottled Musculoskeletal: full muscle strength, no muscle tenderness, normal joint ROM, no joint effusions Neurologic: AAOx3, sensation intact bilaterally, CN II-XII Intact, No weakness, No numbness, No facial droop Psychiatric: interacting appropriately, not anxious, not encephalopathic, thought process linear Lab Data & Imaging Review 07/06/16 20:30 07/06/16 20:30 WBC 2.37 10^3/uL (3.80-9.50) L 07/06/16 20:30 RBC 2.92 10^6/uL (4.18-5.33) L 07/06/16 20:30 Hgb 9.0 g/dL (12.6-16.3) L 07/06/16 20:30 Hct 26.7 % (38.0-47.0) L 07/06/16 20:30 MCV 91.4 fL (81.5-99.8) 07/06/16 20:30 MCH 30.8 pg (27.9-34.1) 07/06/16 20: MCHC 33.7 g/dL (32.4-36.7) 07/06/16 20:30 RDW 13.6 % (11.5-15.2) 07/06/16 20:30 Plt Count 60 10^3/uL (150-400) L 07/06/16 20:30 MPV 10.3 fL (8.7-11.7) 07/06/16 20:30 Neut % (Auto) 61.6 % (39.3-74.2) 07/06/16 20:30 Lymph % (Auto) 25.3 % (15.0-45.0) 07/06/16 20:30 [place] % (Auto) 12.7 % (4.5-13.0) 07/06/16 20:30 Eos % (Auto) 0.0 % (0.6-7.6) L 07/06/16 20:30 Baso % (Auto) 0.4 % (0.3-1.7) 07/06/16 20:30 Nucleat RBC Rel Count 0.0 % (0.0-0.2) 07/06/16 20:30 Absolute Neuts (auto) 1.46 10^3/uL (1.70-6.50) L 07/06/16 20:30 Absolute Lymphs (auto) 0.60 10^3/uL (1.00-3.00) L 07/06/16 20:30 Absolute Monos (auto) 0.30 10^3/uL (0.30-0.80) 07/06/16 20:30 Absolute Eos (auto) 0.00 10^3/uL (0.03-0.40) L 07/06/16 20:30 Absolute Basos (auto) 0.01 10^3/uL (0.02-0.10) L 07/06/16 20:30 Absolute Nucleated RBC 0.00 10^3/uL (0-0.01) 07/06/16 20:30 Immature Gran % 0.0 % (0.0-1.1) 07/06/16 20:30 Immature Gran # 0.00 10^3/uL (0.00-0.10) 07/06/16 20:30 Sodium 142 mEq/L (134-144) 07/06/16 20:30 Potassium 3.7 mEq/L (3.5-5.2) 07/06/16 20:30 Chloride 99 mEq/L (97-110) 07/06/16 20:30 Carbon Dioxide 28 mEq/l (22-31) 07/06/16 20:30 Anion Gap 15 mEq/L (8-16) 07/06/16 20:30 BUN 33 mg/dL (7-23) H 07/06/16 20:30 Creatinine 4.9 mg/dL (0.6-1.0) H 07/06/16 20:30 Estimated GFR 9 07/06/16 20:30 Glucose 130 mg/dL (70-100) H 07/06/16 20:30 Calcium 9.5 mg/dL (8.5-10.4) 07/06/16 20:30 Troponin I 0.026 ng/mL (0-0.034) 07/06/16 20:30 Lipase 87.0 IU/L (23-300) 07/06/16 20:30 Visualized and Interpreted Chest x-ray results: Yes Chest X-Ray results: no infiltrate Visualized and Interpreted EKG results: Yes EKG Interpretation: Positive for: normal sinsus rhythm ( lateral T-wave flattening) Assessment & Plan Assessment: patient is a 65-year-old female with a history of CAD, diastolic CHF, hypertension, DM 2 and end-stage renal disease presents to the ED with complaint of chest pain. ED work up reveals marked hypertension on arrival, but initial EKG is unremarkable and troponin is indeterminate. Plan: # Acute chest pain Patient's description of the pain is a tightness, nonradiating in the center of her chest. She is at high risk for cardiac ischemia given her medical history. Initial VS were concerning for significant hypertension, which may be provoking cardiac chest pain. Gastritis/GERD may also be contributing. Will rule out ACS with serial troponins, monitoring EKGs and will check TTE and stress test in AM. # hypertension BP markedly elevated on arrival, has improved over hospital course without intervention. May be related to above pain symptoms. Will confirm and continue all home antihypertensives. # pancytopenia Likely related to chronic disease, all cell lines appear to be at her baseline. Will monitor for signs of bleeding and trend CBC. # diastolic CHF: Patient does not appears significantly hypervolemic on presentation or CXR today , was last dialyzed on 07/05. Will recheck TTE to assess for severity/ progression of cardiomyopathy. Will also continue home chf regimen. # ESRD on HD TTS Volume status and electrolytes are stable on today's presentation. Is due for HD today. # DM2 Patient reports this has been well controlled recently off meds. Will monitor FS TIDAC and provide sliding scale coverage. # dispo: admit to observation status for chest pain work up # gen: NPO DVT ppx: HSQ Full code
[2016-07-07 04:57] LABS: INR 1.19 (0.83-1.16); PROTIME(PATIENT) 15.1 SEC (12.0-15.0)
[2016-07-07 04:58] LABS: % IMMATURE GRANULYOCYTES 0.5 % (0.0-1.1); ABSOLUTE IMMATURE GRANULOCYTES 0.01 10^3/uL (0.00-0.10); ADD DIFF? NO; ADD MORPH? NO; ADD SCAN? NO; APTT 34.9 SEC (23.0-38.0); ATYPICAL LYMPHOCYTE FLAG 0 (0-99); FRAGMENT RBC FLAG 0 (0-99); HEMATOCRIT 24.1 % (38.0-47.0); HEMOGLOBIN 8.2 g/dL (12.6-16.3); LEFT SHIFT FLG 0 (0-99); LIPEMIA HEMOLYSIS FLAG 90 (0-99); MEAN CELL HEMOGLOBIN 30.9 pg (27.9-34.1); MEAN CELL VOLUME 90.9 fL (81.5-99.8); MEAN PLATELET VOLUME 10.1 fL (8.7-11.7); PLATELET CLUMPS FLAG 0 (0-99); PLATELET COUNT 53 10^3/uL (150-400); RED BLOOD CELL COUNT 2.65 10^6/uL (4.18-5.33); RED CELL DISTRIBUTION WIDTH 13.6 % (11.5-15.2)
[2016-07-07 05:33] LABS: ALANINE AMINOTRANSFERASE 30 IU/L (9-52); ALBUMIN 3.6 g/dL (3.5-5.0); ALKALINE PHOSPHATASE 111 IU/L (38-126); ANION GAP 11 mEq/L (8-16); ASPARTATE AMINOTRANSFERASE 25 IU/L (14-46); BILIRUBIN,TOTAL 0.8 mg/dL (0.1-1.4); CARBON DIOXIDE 29 mEq/l (22-31); CHLORIDE 100 mEq/L (97-110); CREATININE 5.2 mg/dL (0.6-1.0); GLOMERULAR FILTRATION RATE 8; GLUCOSE 91 mg/dL (70-100); MAGNESIUM 2.4 mg/dL (1.6-2.3); POTASSIUM 3.7 mEq/L (3.5-5.2); SODIUM 140 mEq/L (134-144); TOTAL PROTEIN 6.1 g/dL (6.3-8.2)
[2016-07-07 05:39] LABS: CREATINE KINASE-MB FRACTION 1.73 ng/mL (0-3.19); TROPONIN I 0.036 ng/mL (0-0.034)
[2016-07-07] MEDS: hydrALAZINE 20 MG/ML VIAL IVP PRN ×2 (05:45→13:23)
[2016-07-07] MEDS ORDERED: HEPARIN 5,000 UNIT/0.5 ML SYR SC SCH (06:00)
--- NOTE | 2016-07-07 11:14 | SOAPPROG ---
SOAP Progress Note Assessment/Plan: Assessment: 1. ESRD. TTS schedule as outpatient. Labs stable. Will dialyze either later today or tomorrow depending on disposition. 2. Chest pain. Exertional, new onset 5 d ago. EKG/trops unremarkable but suspicious for ischemia. Nuc stress test this am. If sxs persist would have low threshold for LHC/cards eval even if stress test negative. Unable to take asa d/t allergy. Not on statin for unclear reasons. Despite 4 D study, would start low dose statin if no contraindications. 3. AVF. Well functioning but due for fistulagram. Will order for tomorrow if still here and not busy with other procedures. Plan: 07/07/16 11:15 07/07/16 11:17 Subjective: Patient with ESRD d/t DM with hx of CAD s/p stenting ~ 8 yrs ago, unable to take ASA d/t allergy. Has had chest pressure on and off for last 5 days typically brought on by exertion, a/w increased sob. Does not radiate. Does not feel like her GERD. No n/v. No problems with increased fluid gains on dialysis. Similar to pain she had before her heart stents. Wonders if it is coming from her ventral hernia. Dialysis going well. Typically has 2 L UF. Has well functioning AVF in LUE. Had EGD with polypectomy (benign) 3 wks ago. Additional PPI added for GERD by GI. No other complaints. PMH: 2016: Tamponade after failed HD cath insertion requiring thoracotomy Sepsis d/t L groin catheter Cholecystitis s/p cholecystectomy Had placement and maturation of LUE AVF that is now functioning well Prior: Ventral hernia CAD s/p stenting DM II HTN Anemia Secondary HPT Objective: Vital Signs Temp Pulse Resp BP Pulse Ox 36.6 C 55 L 17 162/55 H 96 07/07/16 08:00 07/07/16 08:00 07/07/16 08:00 07/07/16 08:00 07/07/16 08:00 Laboratory Results 07/07/16 04:23 07/07/16 04:23 07/06/16 07/07/16 07/08/16 05:59 05:59 05:59 Intake Total 10 Balance 10 PT 15.1 SEC (12.0-15.0) H 07/07/16 04:23 INR 1.19 (0.83-1.16) H 07/07/16 04:23 In bed Comfortable female RRR, II/ ALISA CTAB Abdomend soft. Large midline ventral hernia No LE edema LUE AVF with good thrill ICD10 Worksheet Patient Problems: Problems Problem Status Onset Chest pain Acute Pulmonary edema Acute Chronic renal failure Acute Problem with dialysis access Acute Gallstone Acute Elevated troponin Acute Cholelithiasis Acute Fever Acute
[2016-07-07] MEDS ORDERED: REGADENOSON 0.4 MG/5 ML SYR IVP ONE (11:31)
--- NOTE | 2016-07-07 12:05 | PDCARST ---
CAR Stress Test Results Type of Stress Test: Lexiscan stress test Indication: cp Description of Procedure: After informed consent was obtained, pt was established to ECG, blood pressure, HR and oximetry monitoring. STRESS EKG AND HEMODYNAMIC DATA. Resting heart rate: 60 BPM. Resting ECG: SR with iRBBB, Twi ant/lat. Resting blood pressure: 138/68 mmHg. O2 saturation at rest: 90% . Peak heart rate: 95 BPM. Peak blood pressure: 142/60 mmHg. Arrhythmias : None. Symptoms: The patient experienced no typical symptoms of angina during stress or recovery. Stress/Infusion ECG: No change in rhythm with no significant worsening of baseline ST/T wave abnormality. Stress/infusion O2 saturation: 98% Impression: Uneventful Lexiscan infusion. Conclusion: Await nuclear images.
--- NOTE | 2016-07-07 12:19 | ECHO ---
[id number] + + [address] : : [place] [address] : : [phone] + + Adult Echocardiographic Report + ----+ :Name: PHILLY ORROlga Date: 07/07/2016 09:43 AM : : Hospital Admission Number: [id number] Location: 219: :: 1950 Gender: Female Height: 59 in : :Age: 65 yrs Race: WH Weight: 164 lb : :Reason For Study: Chest pain/ESRD : : BSA: 1.7 meters2 : + ----+ MMode/2D Measurements \T\ Calculations IVSd: 1.3 cm LVIDd: 5.2 cm FS: 37.5 % Ao root diam: LVPWd: 1.6 cm LVIDs: 3.3 cm EDV(Teich): 2.9 cm 130.9 ml LA dimension: ESV(Teich): 43.1 ml 5.0 cm EF(Teich): 67.1 % LVOT diam: 2.2 cmLVLd ap4: 7.3 cm SV(MOD-sp4): LVOT area: EDV(MOD-sp4): 43.0 ml 3.6 cm2 59.0 ml LVLs ap4: 6.3 cm ESV(MOD-sp4): 16.0 ml EF(MOD-sp4): 72.9 % Normal Measurement Values: + + :LVIDd (3.5-5.7cm) IVSd (0.6-1.1cm) LVPWd (0.6-1.1cm) Aortic Root (2.0-3.7cm)Left Atrium (1.5-4.0cm): :LV Vol(d) (76-115ml) LV Vol(s) (29-48ml) Ejec Fraction (50-65%)PV Kota (0.6- 1.2m/s) TV Kota (0.4-1.0m/s) : :MV E Kota (0.8-1.0m/s)MV A Kota (0.3-1.0m/s)LVOT Kota (0.7-1.2m/s) Asc Ao Kota ( 0.9-1.8m/s) : + + Doppler Measurements \T\ Calculations MV E max kota: 179.5 cm/sec Ao mean P.5 mmHg TR max kota: 327.9 cm/sec MV A max kota: 104.3 cm/sec Ao V2 mean: 116.5 cm/secTR max P.0 mmHg MV E/A: 1.7 Ao V2 VTI: 38.2 cm RAP systole: 10.0 mmHg RVSP(TR): 53.0 mmHg Left Ventricle The left ventricle is normal in size. There is mild concentric left ventricular hypertrophy. Ejection Fraction = 70-75%. There is Doppler evidence for diastolic dysfunction. The left ventricle is hyperdynamic. No regional wall motion abnormalities noted. Right Ventricle The right ventricle is normal in size and function. Atria The left atrium is mildly dilated. The right atrium is mildly dilated. The interatrial septum is intact with no evidence for an atrial septal defect. Mitral Valve Calcified mitral apparatus. There is no evidence of mitral valve prolapse. There is no mitral valve stenosis. There is mild mitral regurgitation. Tricuspid Valve Normal tricuspid valve. There is moderate to severe tricuspid regurgitation. Right ventricular systolic pressure is 54-60mmHg. There is Doppler evidence for mild to moderate pulmonary hypertension. Aortic Valve The aortic valve is trileaflet. The aortic valve opens well. There is no aortic stenosis. There is no aortic insufficiency. Pulmonic Valve The pulmonic valve is normal in structure and function. Trace pulmonic valvular regurgitation. Great Vessels The aortic root is normal size. Pericardium/Pleural There is no pericardial effusion. Conclusion A complete two-dimensional transthoracic echocardiogram was performed (2D, M-mode, Doppler and color flow Doppler). There is mild concentric left ventricular hypertrophy. Ejection Fraction = 70-75%. There is Doppler evidence for diastolic dysfunction. The left ventricle is hyperdynamic. The left atrium is mildly dilated. The right atrium is mildly dilated. Calcified mitral apparatus. There is mild mitral regurgitation. There is moderate to severe tricuspid regurgitation. Right ventricular systolic pressure is 54-60mmHg. There is Doppler evidence for mild to moderate pulmonary hypertension. Trace pulmonic valvular regurgitation. Final Reading Physician: Radha Arambula signed on 07/07/2016 12:18 PM Ordering Physician: Aditi Fan Performed By: Dayan Duarte, [facility]
[2016-07-07] MEDS: LOSARTAN POTASSIUM 50 MG TAB PO SCH (12:25)
[2016-07-07] MEDS: ISOSORBIDE MONONITRATE 30 MG TAB.SR PO SCH (14:32)
[2016-07-07] MEDS ORDERED: IOPAMIDOL (ISOVUE 370) 100 ML BTL IV ONE (15:37)
--- NOTE | 2016-07-07 16:13 | HOSPPROG ---
Hospitalist Progress Note Assessment/Plan: * Chest pain -EKG/trops/stress test negative -pleuritic pain with positive ddimer - check CTA rule out PE -uncontrolled HTN may be contributing * HTN - uncontrolled -add Imdur and monitor * ESRD - d/w Dr. Chavez -dialysis in am * GERD - PPI -recent EGD unremarkable * Pancytopenia -outpatient bone marrow biopsy negative * CAD - reported previous PCI but details unclear Subjective: No cp today Objective: Vital Signs Temp Pulse Resp BP Pulse Ox 36.8 C 63 18 158/69 H 91 L 07/07/16 12:00 07/07/16 12:00 07/07/16 12:00 07/07/16 14:32 07/07/16 12:00 PT 15.1 SEC (12.0-15.0) H 07/07/16 04:23 INR 1.19 (0.83-1.16) H 07/07/16 04:23 Laboratory Tests 07/07/16 07/07/16 07/07/16 04:23 04:23 04:23 WBC 2.08 L Hct 24.1 L Plt Count 53 L D-Dimer 1.64 H Creatinine 5.2 H ECHO - EF normal, + pulmonary HTN - Physical Exam Constitutional: no apparent distress, appears nourished, not in pain Cardiovascular: regular rate and rhythym, no murmur, rub, or gallop Respiratory: no respiratory distress, no rales or rhonchi, clear to auscultation Gastrointestinal: normoactive bowel sounds, soft, non-tender abdomen, no palpable masses Skin: no rashes or abrasions, no fluctuance, no induration Neurologic: AAOx3, sensation intact bilaterally Psychiatric: interacting appropriately, not anxious, not encephalopathic, thought process linear ICD10 Worksheet Patient Problems: Problems Problem Status Onset Chest pain Acute Cholelithiasis Acute Chronic renal failure Acute Elevated troponin Acute Fever Acute Gallstone Acute Problem with dialysis access Acute Pulmonary edema Acute
[2016-07-07] MEDS ORDERED: NON-FORMULARY NEW DRUG (Omeprazole [Prilosec 20 Mg] 20 MG) PO SCH (21:00)
[2016-07-08 05:36] LABS: % IMMATURE GRANULYOCYTES 0.5 % (0.0-1.1); ABSOLUTE IMMATURE GRANULOCYTES 0.01 10^3/uL (0.00-0.10); ADD DIFF? NO; ADD MORPH? NO; ADD SCAN? NO; ATYPICAL LYMPHOCYTE FLAG 0 (0-99); FRAGMENT RBC FLAG 0 (0-99); HEMATOCRIT 23.7 % (38.0-47.0); HEMOGLOBIN 7.9 g/dL (12.6-16.3); LEFT SHIFT FLG 0 (0-99); LIPEMIA HEMOLYSIS FLAG 80 (0-99); MEAN CELL HEMOGLOBIN 30.9 pg (27.9-34.1); MEAN CELL HEMOGLOBIN CONCENTR. 33.3 g/dL (32.4-36.7); MEAN CELL VOLUME 92.6 fL (81.5-99.8); MEAN PLATELET VOLUME 10.8 fL (8.7-11.7); PLATELET CLUMPS FLAG 0 (0-99); PLATELET COUNT 57 10^3/uL (150-400); RED BLOOD CELL COUNT 2.56 10^6/uL (4.18-5.33); RED CELL DISTRIBUTION WIDTH 13.7 % (11.5-15.2)
[2016-07-08 05:57] LABS: CHOLESTEROL 134 mg/dL (140-220); CHOLESTEROL/HDL RATIO 3.35 RATIO (1.00-4.44); HIGH DENSITY LIPOPROTEIN 40 mg/dL (40-85); LDL/HDL RATIO 1.93 RATIO (1.00-3.22); LOW DENSITY LIPOPROTEIN 77 mg/dL (80-100); NON-HIGH DENSITY LIPOPROTEIN 94 mg/dL (90-129); TRIGLYCERIDE 89 mg/dL (35-135); VERY LOW DENSITY LIPOPROTEINS 17 mg/dL (8-25)
[2016-07-08] MEDS: LOSARTAN POTASSIUM 50 MG TAB PO SCH (08:25)
[2016-07-08] MEDS: ISOSORBIDE MONONITRATE 30 MG TAB.SR PO SCH (08:25)
[2016-07-08 08:29] VITALS: TEMP 97.8
[2016-07-08] MEDS ORDERED: PANTOPRAZOLE SODIUM 40 MG TAB PO SCH (09:00)
[2016-07-08] MEDS ORDERED: LEVOTHYROXINE 100 MCG TAB PO SCH (09:00)
[2016-07-08] MEDS ORDERED: ISOSORBIDE MONONITRATE 30 MG TAB.SR PO SCH (09:27)
--- NOTE | 2016-07-08 10:07 | SOAPPROG ---
THO Progress Note Assessment/Plan: Assessment/Plan: ESRD: on HD TTS at [facility]. - Will do HD today as she missed yesterday. - Next HD tomorrow, can be done at outpatient unit. Anemia: Hgb 7.9, given her chest pain, will give 1 unit PRBCs today on HD. HTN: uncontrolled, may be contributing to chest pain. Started on isosorbide mononitrate, will increase dose. Hypervolemia: will modulate on HD. Access: pt is scheduled for fistulagram as outpatient on Monday. Subjective: No acute events overnight. Pt had a negative stress test yesterday. She is no longer having any chest pain or dyspnea. Objective: Vital Signs Temp Pulse Resp BP Pulse Ox 36.6 C 56 L 18 177/68 H 97 07/08/16 08:00 07/08/16 08:00 07/08/16 08:00 07/08/16 08:00 07/08/16 08:00 Laboratory Results 07/08/16 04:19 07/07/16 07/08/16 07/09/16 05:59 05:59 05:59 Intake Total 660 Output Total 0 Balance 660 PT 15.1 SEC (12.0-15.0) H 07/07/16 04:23 INR 1.19 (0.83-1.16) H 07/07/16 04:23 General: alert and oriented, no acute distress Eyes; EOMI, PERRL OP: Clear CV: RRR Resp: nonlabored respirations on NC, CTAB Abd: Soft, NT Ext: +1 edema BLE Neuro: CN II-XII grossly intact, no asterixis Psych: cooperative, appropriate mood and affect Access: LUE AVF with thrill and bruit appreciated ICD10 Worksheet Patient Problems: Problems Problem Status Onset Chest pain Acute Cholelithiasis Acute Chronic renal failure Acute Elevated troponin Acute Fever Acute Gallstone Acute Problem with dialysis access Acute Pulmonary edema Acute
[2016-07-08 12:09] VITALS: BP 174/61; PULSE 54; RESP 16; O2SAT 98
--- NOTE | 2016-07-08 17:06 | GDS ---
[f rep st] DISCHARGE SUMMARY DISCHARGE DIAGNOSES: 1. Chest pain, suspect due to uncontrolled hypertension. 2. Hypertensive emergency. 3. End-stage renal disease. 4. Gastroesophageal reflux disease. 5. Pancytopenia. 6. Coronary artery disease, status post previous stent. HISTORY OF PRESENT ILLNESS: The patient is a 65-year-old female who presented with an episode of ch est tightness. She has serial troponins and EKGs that were negative. Followup nuclear medicine stre ss testing was negative. There was a pleuritic component to her chest pain. She had a positive D-d errol, so a CT angiogram was performed; it was negative for pulmonary embolus. On presentation, she h ad severe hypertension with a systolic blood pressure of 216. Her uncontrolled hypertension was fel t to be contributing to her chest pain syndrome on presentation. Blood pressure was better controll ed with the addition of Imdur. Nephrology has up titrated to 60 mg p.o. on the day of discharge. She has a significant pancytopenia but has been evaluated by Hematology in [place] including a bone marrow biopsy that she was told was unremarkable. Nephrology did transfuse 1 unit during dialysis today prior to discharge. DISCHARGE MEDICATIONS: Please see computer record for full detailed list. New medications: Imdur 60 mg p.o. daily. DISCHARGE INSTRUCTIONS: Nephrology was concerned that she may need cardiac catheterization, even de spite negative stress testing given her high risk status and quite good history. She has been chest pain-free for over 24 hours at the time of hospital discharge but, if she does have recurrence of c hest pain, outpatient cardiology consultation could be considered to proceed with cardiac catheteriz ation. Greater 30 minutes' time was spent arranging this discharge. Patient seen and examined by me on the day of discharge. /[id number]/MODL
== END 2016-07-08 16:55 | disposition home or self-care (01) | DRG 304 ==
LOC: F2W 22:43 → OBSVTOIN 07-07 13:29
PROVIDERS: ADMIT Family Medicine; ATTEND Internal Medicine
DX: I16.1 Hypertensive emergency (principal); I12.0 Hypertensive chronic kidney disease with stage 5 chronic kidney disease or end stage renal disease; N18.6 End stage renal disease; E11.22 Type 2 diabetes mellitus with diabetic chronic kidney disease; Z99.2 Dependence on renal dialysis; D63.1 Anemia in chronic kidney disease; I25.10 Atherosclerotic heart disease of native coronary artery without angina pectoris; Z95.5 Presence of coronary angioplasty implant and graft; E78.5 Hyperlipidemia, unspecified; K21.9 Gastro-esophageal reflux disease without esophagitis; D61.818 Other pancytopenia
CPT/HCPCS: 96374; A9500; G0378; J0360; J2405; J2785; P9016; Q9967

== ENCOUNTER 2016-07-13 07:18 | Day surgery (SDC) | payer MEDICAID ==
[2016-07-13] MEDS ORDERED: fentaNYL 100 MCG/2 ML INJ ONE (09:32)
[2016-07-13] MEDS ORDERED: MIDAZOLAM 2 MG/2 ML VIAL ONE (09:32)
[2016-07-13] MEDS ORDERED: hydrALAZINE 20 MG/ML VIAL ONE (09:43)
[2016-07-13] MEDS ORDERED: IOPAMIDOL (ISOVUE-300) 100 ML BTL IV ONE (10:43)
[2016-07-13] MEDS ORDERED: ONDANSETRON 4 MG/2 ML VIAL ONE (11:13)
[2016-07-13] MEDS ORDERED: ONDANSETRON DISINTEGRATING 4 MG TAB PO ONE (11:30)
== END 2016-07-13 11:30 | disposition home or self-care (01) ==
LOC: FIMAGING 07:18
PROVIDERS: ATTEND Internal Medicine Nephrology
DX: T82.858A Stenosis of other vascular prosthetic devices, implants and grafts, initial encounter (principal); I77.0 Arteriovenous fistula, acquired; N18.9 Chronic kidney disease, unspecified; E11.22 Type 2 diabetes mellitus with diabetic chronic kidney disease; I12.9 Hypertensive chronic kidney disease with stage 1 through stage 4 chronic kidney disease, or unspecified chronic kidney disease; I25.10 Atherosclerotic heart disease of native coronary artery without angina pectoris; E03.9 Hypothyroidism, unspecified; Z95.5 Presence of coronary angioplasty implant and graft
CPT/HCPCS: 36902; 99152; 99153; C1769; C1894; C1725; J0360; J1644; J2250; J2405; J3010; Q9967

== ENCOUNTER 2016-09-06 17:32 | Inpatient (IN) | payer MEDICAID ==
[2016-09-06] MEDS ORDERED: fentaNYL 100 MCG/2 ML INJ ONE (17:59)
[2016-09-06] MEDS ORDERED: ONDANSETRON 4 MG/2 ML VIAL ONE (17:59)
--- NOTE | 2016-09-06 18:03 | EDPHY ---
H & P Time Seen by Provider: 09/06/16 17:44 HPI/ROS: CHIEF COMPLAINT: Abdominal pain HISTORY OF PRESENT ILLNESS: 65-year-old female presents to the emergency department by private vehicle complaining of abdominal pain. Patient states the pain began abruptly this afternoon. The patient has a history of a known ventral hernia. She states that she was leaning against the edge of something and now has more severe abdominal pain. No nausea or vomiting. No diarrhea. No chest pain or difficulty breathing. REVIEW OF SYSTEMS: Constitutional: No fever, no chills. Eyes: No double or blurry vision. ENT: No sore throat. Respiratory: No cough, no shortness of breath. Cardiac: No chest pain. Gastrointestinal: Abdominal pain as above. No vomiting or diarrhea Genitourinary: No dysuria. Musculoskeletal: No neck or back pain. Skin: No rashes. Neurological: No headache. Past Medical/Surgical History: Renal failure, on dialysis Monday, and Saturdays. Hypertension, CHF, depression, pulmonary hypertension, sleep apnea, uses oxygen at night, left arm fistula, the myocardial surgical repair, cholecystectomy, cardiac stenting Social History: and lives in [place] Smoking Status: Never smoked Physical Exam: General Appearance: Alert, tearful. Afebrile. Eyes: Pupils equal and round. Extraocular motions are all intact. ENT: Mouth: Mucous membranes moist. Respiratory: No wheezing, rhonchi, or rales, lungs are clear to auscultation. Cardiovascular: Regular rate and rhythm. Gastrointestinal: Patient has a large ventral hernia that is easily reducible. It is soft. She has pain associated with this. She also has pain with palpation especially in the left lower quadrant. There is no rebound tenderness. No guarding. Neurological: Alert and oriented x 3, cranial nerves II through XII grossly intact Skin: Warm and dry, no rashes. Musculoskeletal: Nontender to palpate along the cervical, thoracic or lumbar spine. Neck is supple. Extremities: Full range of motion and no peripheral edema. Psychiatric: Patient is oriented X 3, there is no agitation. Constitutional: Initial Vital Signs Temperature (C) 36.8 C 09/06/16 17:40 Heart Rate 62 09/06/16 17:40 Respiratory Rate 16 09/06/16 17:40 Blood Pressure 171/58 H 09/06/16 17:40 O2 Sat (%) 97 06/27/17 17:40 O2 Delivery Mode Room Air O2 (L/minute) 2 Allergies/Adverse Reactions: aspirin Allergy (Severe, Verified 07/04/16 16:46) NSAIDS (Non-Steroidal Anti-Inflamma Allergy (Severe, Verified 07/04/16 16:46) Swelling/neck,face,throat morphine Allergy (Intermediate, Verified 07/04/16 16:47) Home Medications: Medication Instructions Recorded amLODIPine BESYLATE [Norvasc 10 mg 10 mg PO HS 08/24/15 (*)] Losartan Potassium [Cozaar 50 mg 100 mg PO DAILY 09/22/15 (*)] Levothyroxine [Synthroid 100 mcg 100 mcg PO DAILY 01/16/16 (*)] Hyoscyamine Sulfate [Levsin, 0.125 mg SL TID PRN 07/04/16 Hyomax-Sl 0.125 mg (*)] Pantoprazole Sodium [Protonix 40mg 40 mg PO DAILY 07/04/16 (*)] Acetaminophen [Tylenol 325mg (*)] 325 mg PO DAILY PRN 07/07/16 Herbals/Supplements -Info Only 1 ea PO DAILY 07/07/16 hydrALAZINE [Apresoline 50 mg (*)] 50 mg PO TID 07/07/16 Isosorbide Mononitrate [Imdur 30 60 mg PO DAILY #60 tab.sr 07/08/16 mg (*)] Medical Decision Making - Diagnostics Imaging Results: Imaging Impressions Abdomen CT 09/06/16 18:09 Impression: 1. Moderate ascites is increased since the prior study. 2. Heterogeneous enhancement of the liver with subtle nodular pattern. Rule out cirrhosis. No focal abnormality. 3. Ventral hernia once again noted now with inclusion of small bowel loops without obstruction or thickening. 4. Atrophic kidneys related to chronic renal disease on this dialysis patient. 5. Degenerative disk disease mid to lower lumbar spine with severe spinal stenosis suspected at L4-L5. Findings discussed with Gena Martin PA-C at 18:49 hour, 09/06/2016. Imaging: Discussed imaging studies w/ will call clerk Radiologist ED Course/Re-evaluation: 65-year-old female presents to the emergency department with abdominal pain. The patient has an obvious large ventral hernia however this is easily reducible. The patient however is in severe abdominal pain. Explained to the patient that she could have a bowel obstruction worst another process going on. I recommended CT scan. Patient was also seen examined by Dr. Don Mclean, secondary supervising physician, who recommends CT imaging of the abdomen pelvis with IV contrast. CT scan of the abdomen and pelvis reveals moderate amount of ascites which is worse since April 2016 was mild. Heterogeneous liver, ventral hernia noted without signs of obstruction. Also spinal stenosis at L4-L5. The patient was given 50 mcg of IV fentanyl and was feeling a bit better. She was still continuing to have ongoing abdominal pain. I spoke with Dr. Ulisses Thompson who has seen this patient in the past, who will come to evaluate this patient to make sure that she does not have a surgical problem. The patient will be admitted to Dr. Danny Green, hospitalist to the medical -surgical floor. He recommended paracentesis in Interventional Radiology to make sure that she does not have spontaneous bacterial peritonitis. This has been ordered and is pending. Dr. Ulisses Thompson came to evaluate the patient and does not feel that she has surgical abdomen. Differential Diagnosis: Including but not limited to bowel obstruction, incarcerated hernia, diverticulitis, perforation, colitis, contusion - Data Points Laboratory Results: Laboratory Results 09/06/16 18:10 09/06/16 18:10 09/06/16 09/06/16 09/06/16 18:10 18:10 18:10 WBC RBC Hgb Hct MCV MCH MCHC RDW Plt Count MPV Neut % (Auto) Lymph % (Auto) Carbon % (Auto) Eos % (Auto) Baso % (Auto) Nucleat RBC Rel Count Absolute Neuts (auto) Absolute Lymphs (auto) Absolute Monos (auto) Absolute Eos (auto) Absolute Basos (auto) Absolute Nucleated RBC Immature Gran % Immature Gran # PT 15.1 SEC H SEC (12.0-15.0) INR 1.19 H (0.83-1.16) APTT 45.5 SEC H SEC (23.0-38.0) Sodium 133 mEq/L L mEq/L (134-144) Potassium 4.6 mEq/L mEq/L (3.5-5.2) Chloride 96 mEq/L L mEq/L (97-110) Carbon Dioxide 26 mEq/l mEq/l (22-31) Anion Gap 11 mEq/L mEq/L (8-16) BUN 16 mg/dL mg/dL (7-23) Creatinine 3.2 mg/dL H mg/dL (0.6-1.0) Estimated GFR 15 Glucose 96 mg/dL mg/dL (70-100) Calcium 9.1 mg/dL mg/dL (8.5-10.4) Total Bilirubin 0.9 mg/dL mg/dL (0.1-1.4) Conjugated Bilirubin 0.7 mg/dL H mg/dL (0.0-0.5) Unconjugated Bilirubin 0.2 mg/dL mg/dL (0.0-1.1) AST 24 IU/L IU/L (14-46) ALT 28 IU/L IU/L (9-52) Alkaline Phosphatase 129 IU/L H IU/L (38-126) Total Protein 6.3 g/dL g/dL (6.3-8.2) Albumin 3.9 g/dL g/dL (3.5-5.0) Lipase 64.0 IU/L IU/L (23-300) 09/06/16 18:10 WBC 3.16 10^3/uL L 10^3/uL (3.80-9.50) RBC 2.82 10^6/uL L 10^6/uL (4.18-5.33) Hgb 8.9 g/dL L g/dL (12.6-16.3) Hct 26.6 % L % (38.0-47.0) MCV 94.3 fL fL (81.5-99.8) MCH 31.6 pg pg (27.9-34.1) MCHC 33.5 g/dL g/dL (32.4-36.7) RDW 13.3 % % (11.5-15.2) Plt Count 90 10^3/uL L 10^3/uL (150-400) MPV 9.8 fL fL (8.7-11.7) Neut % (Auto) 71.3 % % (39.3-74.2) Lymph % (Auto) 16.1 % % (15.0-45.0) Carbon % (Auto) 12.0 % % (4.5-13.0) Eos % (Auto) 0.0 % L % (0.6-7.6) Baso % (Auto) 0.3 % % (0.3-1.7) Nucleat RBC Rel Count 0.0 % % (0.0-0.2) Absolute Neuts (auto) 2.25 10^3/uL 10^3/uL (1.70-6.50) Absolute Lymphs (auto) 0.51 10^3/uL L 10^3/uL (1.00-3.00) Absolute Monos (auto) 0.38 10^3/uL 10^3/uL (0.30-0.80) Absolute Eos (auto) 0.00 10^3/uL L 10^3/uL (0.03-0.40) Absolute Basos (auto) 0.01 10^3/uL L 10^3/uL (0.02-0.10) Absolute Nucleated RBC 0.00 10^3/uL 10^3/uL (0-0.01) Immature Gran % 0.3 % % (0.0-1.1) Immature Gran # 0.01 10^3/uL 10^3/uL (0.00-0.10) PT INR APTT Sodium Potassium Chloride Carbon Dioxide Anion Gap BUN Creatinine Estimated GFR Glucose Calcium Total Bilirubin Conjugated Bilirubin Unconjugated Bilirubin AST ALT Alkaline Phosphatase Total Protein Albumin Lipase Medications Given: Discontinued Medications Fentanyl (Sublimaze) 50 mcg IVP EDNOW ONE Stop: 09/06/16 18:09 Last Admin: 09/06/16 18:12 Dose: 50 mcg Fentanyl (Sublimaze) 50 mcg IVP EDNOW ONE Stop: 09/06/16 19:37 Last Admin: 09/06/16 19:44 Dose: 50 mcg Sodium Chloride (Ns) 1,000 mls @ 0 mls/hr IV ONCE ONE PRN Reason: Wide Open Stop: 09/06/16 18:09 Last Admin: 09/06/16 18:12 Dose: 1,000 mls Ertapenem 1 gm/ Sodium (Chloride) 100 mls @ 200 mls/hr IV ONCE ONE PRN Reason: Protocol Stop: 09/06/16 20:37 Last Admin: 09/06/16 20:42 Dose: 100 mls Ondansetron HCl (Zofran) 4 mg IVP EDNOW ONE Stop: 09/06/16 18:14 Last Admin: 09/06/16 18:13 Dose: 4 mg Departure - Departure Disposition: [facility] Inpatient Acute Clinical Impression: Abdominal pain Qualifiers: Abdominal location: generalized Qualified Code(s): R10.84 - Generalized abdominal pain Ascites Qualifiers: Ascites type: other type Qualified Code(s): R18.8 - Other ascites Condition: Good
[2016-09-06] MEDS ORDERED: NS 1,000 ML IV ONE (18:08)
[2016-09-06] MEDS ORDERED: fentaNYL 100 MCG/2 ML INJ IVP ONE ×2 (18:08→19:36)
[2016-09-06] MEDS ORDERED: ONDANSETRON 4 MG/2 ML VIAL IVP ONE (18:13)
[2016-09-06] MEDS ORDERED: IOPAMIDOL (ISOVUE-300) 100 ML BTL ONE (18:16)
[2016-09-06 18:41] LABS: % IMMATURE GRANULYOCYTES 0.3 % (0.0-1.1); ABSOLUTE IMMATURE GRANULOCYTES 0.01 10^3/uL (0.00-0.10); ADD DIFF? NO; ADD MORPH? NO; ADD SCAN? NO; ATYPICAL LYMPHOCYTE FLAG 20 (0-99); FRAGMENT RBC FLAG 0 (0-99); HEMATOCRIT 26.6 % (38.0-47.0); HEMOGLOBIN 8.9 g/dL (12.6-16.3); LEFT SHIFT FLG 0 (0-99); LIPEMIA HEMOLYSIS FLAG 80 (0-99); MEAN CELL HEMOGLOBIN 31.6 pg (27.9-34.1); MEAN CELL HEMOGLOBIN CONCENTR. 33.5 g/dL (32.4-36.7); MEAN CELL VOLUME 94.3 fL (81.5-99.8); MEAN PLATELET VOLUME 9.8 fL (8.7-11.7); PLATELET CLUMPS FLAG 10 (0-99); PLATELET COUNT 90 10^3/uL (150-400); RED BLOOD CELL COUNT 2.82 10^6/uL (4.18-5.33); RED CELL DISTRIBUTION WIDTH 13.3 % (11.5-15.2)
[2016-09-06 18:47] LABS: ANION GAP 11 mEq/L (8-16); CALCIUM 9.1 mg/dL (8.5-10.4); CARBON DIOXIDE 26 mEq/l (22-31); CHLORIDE 96 mEq/L (97-110); CREATININE 3.2 mg/dL (0.6-1.0); GLOMERULAR FILTRATION RATE 15; GLUCOSE 96 mg/dL (70-100); POTASSIUM 4.6 mEq/L (3.5-5.2); SODIUM 133 mEq/L (134-144)
[2016-09-06 19:20] LABS: INR 1.19 (0.83-1.16); PROTIME(PATIENT) 15.1 SEC (12.0-15.0)
[2016-09-06 19:21] LABS: APTT 45.5 SEC (23.0-38.0)
[2016-09-06 19:43] LABS: ALBUMIN 3.9 g/dL (3.5-5.0); BILIRUBIN,TOTAL 0.9 mg/dL (0.1-1.4); BILIRUBIN-CONJUGATED 0.7 mg/dL (0.0-0.5); BILIRUBIN-UNCONJUGATED 0.2 mg/dL (0.0-1.1); TOTAL PROTEIN 6.3 g/dL (6.3-8.2)
[2016-09-06] MEDS ORDERED: ACETAMINOPHEN 325 MG TAB PO PRN (20:06)
[2016-09-06] MEDS ORDERED: ONDANSETRON DISINTEGRATING 4 MG TAB PO PRN (20:06)
[2016-09-06] MEDS ORDERED: HYDROmorphONE/DILAUDID 1 MG/ML SYR IVP PRN (20:06)
[2016-09-06] MEDS ORDERED: ONDANSETRON 4 MG/2 ML VIAL IVP PRN (20:06)
[2016-09-06] MEDS ORDERED: ERTAPENEM 1 GM in NS 100 ML IV ONE (20:08)
[2016-09-06] MEDS ORDERED: LIDO/EPI 1% **Not for Epidural 20 ML MDV ONE ×2 (20:53→20:54)
[2016-09-06] MEDS ORDERED: LIDO/EPI 1% **for epidural** 30 ML SDV ONE (20:55)
--- NOTE | 2016-09-06 21:08 | GHP ---
[f rep st] HISTORY AND PHYSICAL DATE OF ADMISSION: 09/06/2016 CHIEF COMPLAINT: Abdominal pain. HISTORY OF PRESENT ILLNESS: This is a 65-year-old female with end-stage renal disease who presents with abdominal pain. This started acutely today when she bumped her abdomen against the table, desc ribed as severe, mostly periumbilical. She has had a little bit of nausea with no emesis. She had diarrhea about a week ago but none since. She had dialysis today; her weight before dialysis was 76 kg; after was 75.1. Her dry weight is 72. They have trouble taking enough fluid off, as she gets significant extremity cramping. She has not had any fevers at home. PAST MEDICAL/SURGICAL HISTORY: 1. End-stage renal disease on chronic dialysis. 2. Diabetes mellitus type 2. 3. Diastolic CHF. 4. Coronary artery disease, status post PCI. 5. Hyperlipidemia. 6. Hypertension. 7. History of cardiac tamponade requiring thoracotomy. 8. Serratia bacteremia. 9. Cholecystectomy. 10. Left upper extremity AV fistula. MEDICATIONS: Please see medication reconciliation. ALLERGIES: Aspirin, NSAIDs, morphine. FAMILY HISTORY: Reviewed. Her sister has diabetes and end-stage renal disease. SOCIAL HISTORY: She never smoked. She lives with her son. REVIEW OF SYSTEMS: 10-point review of systems is conducted and is negative except per HPI. PHYSICAL EXAM: VITAL SIGNS: Blood pressure 181/82, heart rate 69, respiration rate 18, satting at 96% on 2 L. Temperature is 36.8. GENERAL: The patient is a very pleasant female who appears quite uncomfortable, lying on her side, holding her abdomen. HEENT: Normocephalic, atraumatic. CARDIOV ASCULAR: Regular rate and rhythm. She has a 2/6 systolic murmur. PULMONARY: Lungs clear to auscu ltation bilaterally. ABDOMEN: Periumbilical hernia, which is easily reducible. It is not especial ly tender to palpation. Otherwise, she has a soft abdomen, no guarding or rebound. SKIN: No rash. GENITOURINARY: No Chaudhry. NEUROLOGIC: Alert and oriented x3. She is moving all extremities. PS YCHIATRIC: Normal mood and affect. EXTREMITIES: Left upper extremity with fistula, palpable thril l. LABORATORY DATA: White count 3.1, hemoglobin 8.9, platelets are 90. INR is 1.19. Sodium is 133, c reatinine 3.2, potassium 4.6, conjugated bilirubin 0.7, alkaline phosphatase 129. DATA: 1. I discussed this with Gena Martin. Will admit to med/surg after paracentesis. 2. CT scan shows moderate ascites, which is increased, questionable cirrhosis. She has a ventral h ernia without evidence of strangulation. IMPRESSION AND PLAN: This is a 65-year-old female with end-stage renal disease, with abdominal pain . 1. Abdominal pain: I suspect that this is going to be potentially due to her hernia, although with new ascites and possible cirrhosis, and immunosuppression, would like to rule out SBP. Agree with paracentesis. Will give her a dose of Invanz empirically, pending the results of this. Otherwise, I agree with surgical consultation as requested by Gena Martin. She has been seen by Dr. Eliel gavin previously. 2. End-stage renal disease: Will need to alert Renal tomorrow. She had dialysis today and has no urgent or emergent needs. 3. Coronary artery disease: Appears to be quiescent currently. 4. Pancytopenia: This has been somewhat of a persistent problem for her. 5. Possible cirrhosis: Labs today are not really consistent with cirrhosis. I wonder if the ascit es is more due to volume overload from her kidney disease. 6. Diastolic congestive heart failure: Slightly volume overloaded with ascites. 7. Diabetes mellitus type 2: Currently off medications. She is not hyperglycemic on presentation. 8. Code status: She would like to be full code/full tube. Either her son or her daughter she woul d like to be decision-makers. /[id number]/MODL
[2016-09-06 22:39] LABS: GLUCOSE, PERITONEAL FLUID 96 mg/dL (55-113)
[2016-09-06] MEDS: oxyCODONE IR 5 MG TAB PO PRN (22:40)
[2016-09-07 06:28] LABS: % IMMATURE GRANULYOCYTES 0.4 % (0.0-1.1); ABSOLUTE IMMATURE GRANULOCYTES 0.01 10^3/uL (0.00-0.10); ADD DIFF? NO; ADD MORPH? NO; ADD SCAN? NO; ATYPICAL LYMPHOCYTE FLAG 40 (0-99); FRAGMENT RBC FLAG 0 (0-99); HEMATOCRIT 26.4 % (38.0-47.0); HEMOGLOBIN 8.8 g/dL (12.6-16.3); LEFT SHIFT FLG 0 (0-99); LIPEMIA HEMOLYSIS FLAG 80 (0-99); MEAN CELL HEMOGLOBIN 31.8 pg (27.9-34.1); MEAN CELL HEMOGLOBIN CONCENTR. 33.3 g/dL (32.4-36.7); MEAN CELL VOLUME 95.3 fL (81.5-99.8); MEAN PLATELET VOLUME 9.4 fL (8.7-11.7); PLATELET CLUMPS FLAG 0 (0-99); PLATELET COUNT 79 10^3/uL (150-400); RED BLOOD CELL COUNT 2.77 10^6/uL (4.18-5.33); RED CELL DISTRIBUTION WIDTH 13.4 % (11.5-15.2)
[2016-09-07 06:49] LABS: ALANINE AMINOTRANSFERASE 26 IU/L (9-52); ALBUMIN 3.4 g/dL (3.5-5.0); ALKALINE PHOSPHATASE 117 IU/L (38-126); ANION GAP 11 mEq/L (8-16); ASPARTATE AMINOTRANSFERASE 25 IU/L (14-46); BILIRUBIN,TOTAL 0.9 mg/dL (0.1-1.4); CARBON DIOXIDE 22 mEq/l (22-31); CHLORIDE 101 mEq/L (97-110); CREATININE 3.8 mg/dL (0.6-1.0); GLOMERULAR FILTRATION RATE 12; GLUCOSE 76 mg/dL (70-100); POTASSIUM 5.1 mEq/L (3.5-5.2); SODIUM 134 mEq/L (134-144); TOTAL PROTEIN 5.8 g/dL (6.3-8.2)
--- NOTE | 2016-09-07 13:28 | HOSPPROG ---
Hospitalist Progress Note Assessment/Plan: Annelise Garcia is a 65 y/o female who presented to the ER with abdominal pain. CT scan shows moderate ascites, ? cirrhoisis. She has a ventral hernia without evidence of strangulation. Today is my first encounter with the patient, chart reviewed/ spoke with Dr Chavez who will see the patient today in regards to ESRD. Was evaluated by Dr Thompson in the ER who did not feel she needed surgery. *abdominal pain has ascites with 1250 ml of fluid removed concern for cirrhosis has ongoing lower abd pain/ it sounds as though this could be chronic *ventral hernia seen by Dr Thompson in ER no surgical intervention *ascites doesn't have SBP likely not to respond to diuretic in the setting of no urine output will ask nephrology to weigh in *DM2 ADA diet *ESRD: nephrology to see today *pancytopenia *Diastolic chf doesn't appear to be in failure *Plan : Dr Chavez to see today/ will order a diet and see if she can eat (she has been NPO)/ will recheck on her later today Subjective: Annelise is having left lower quadrant abdominal pain. Objective: Vital Signs Temp Pulse Resp BP Pulse Ox 36.8 C 60 16 163/58 H 92 09/07/16 07:42 09/07/16 07:42 09/07/16 07:42 09/07/16 07:42 09/07/16 07:42 Microbiology 09/06/16 21:49 Gram Stain - Final Peritoneal Fluid - Aspirate Laboratory Results 09/07/16 06:17 09/07/16 06:17 09/06/16 09/07/16 09/08/16 05:59 05:59 05:59 Intake Total 1100 Output Total 20 Balance 1100 -20 PT 15.1 SEC (12.0-15.0) H 09/06/16 18:10 INR 1.19 (0.83-1.16) H 09/06/16 18:10 - Physical Exam Constitutional: chronically ill appearing, obese, uncomfortable Eyes: PERRL Ears, Nose, Mouth, Throat: hearing normal Cardiovascular: regular rate and rhythym Respiratory: no respiratory distress Gastrointestinal: normoactive bowel sounds, tenderness (slight in left lower quadrant) Skin: warm Neurologic: AAOx3 Psychiatric: interacting appropriately ICD10 Worksheet Patient Problems: Problems Problem Status Onset Abdominal pain Acute Ascites Acute Chest pain Acute Cholelithiasis Acute Chronic renal failure Acute Elevated troponin Acute Fever Acute Gallstone Acute Problem with dialysis access Acute Pulmonary edema Acute
[2016-09-07] MEDS ORDERED: HYOSCYAMINE SULFATE 0.125 MG TAB SL PRN (15:51)
[2016-09-07] MEDS: LOSARTAN POTASSIUM 50 MG TAB PO SCH (16:46)
--- NOTE | 2016-09-07 17:16 | GCON ---
[f rep st] CONSULTATION NEPHROLOGY REFERRING PHYSICIAN: Hannah Bonner NP REASON FOR CONSULTATION: End-stage renal disease. HISTORY OF PRESENT ILLNESS: The patient is a 65-year-old female with end-stage renal disease, diabe trevon mellitus, diastolic heart failure, coronary artery disease status post stenting who is admitted for abdominal pain. She notes that for the past 3 weeks she has had increased bloating. She has be en gaining weight in her stomach but she is not sure why. She does have a history of sleep apnea th at is untreated. She states that she was never told she required treatment. She has had a difficul t time sleeping lately. She had some diarrhea a few weeks ago but took some antidiarrheal medicine and that stopped. Now she has some constipation. She does have a ventral hernia. Her pain is in h er lower abdomen. She does not generally make any urine. She has not had any fevers. She had an a bdominal CT scan that was fairly unrevealing except for a nodular possibly cirrhotic appearing liver and some right upper quadrant ascites. She had a paracentesis of 1.2 L that was sent for fluid ferdinand dies. This showed a bloody tap with a few lymphocytes and culture negative thus far. Her pain feel s much better after the tap. She was seen by Dr. Thompson who did not feel that her ventral hernia war ranted any surgical intervention. She has a left upper arm AV fistula that does have problems with recurrent stenosis. Her last fistu logram was in July. She has not had any problems with cannulation on dialysis. Typically, she has 2 L of fluid removed. She otherwise has had no chest pain, joint pains, or rashes. She has felt a l ittle bit more short of breath lately. PAST MEDICAL HISTORY: See HPI. Diastolic heart failure, hyperlipidemia, hypertension, cardiac tamp onade after dialysis catheter placement requiring thoracotomy, Serratia bacteremia, cholecystectomy, left arm AV fistula. MEDICATIONS: Currently Dilaudid, Zofran, oxycodone and acetaminophen p.r.n. At home she also took amlodipine, losartan, Protonix, Levsin, Synthroid and hydralazine. SOCIAL HISTORY: She does not smoke or drink alcohol. She lives with her son. FAMILY HISTORY: Her sister has diabetes and end-stage kidney failure. ALLERGIES: Aspirin, NSAIDs, morphine. REVIEW OF SYSTEMS: See HPI. Otherwise, 10 system review negative in detail. PHYSICAL EXAMINATION: VITAL SIGNS: 163/58, 60, 16, 92% on room air, 36.8 Celsius. GENERAL: Anxiou s female. HEENT: Eyes, no scleral icterus. Oral mucosa is moist. NECK: No lymphadenopa thy. Jugular venous distention is approximately 15 cm. HEART: Regular rate and rhythm with a 2/6 systolic murmur that radiates from her fistula and continues up to her left carotid. No right-sided carotid bruit. ABDOMEN: Obese, nontender with a 7 cm paraumbilical hernia that reduces easily. N o rebound, guarding, tenderness, masses, hepatomegaly, high-pitched bowel sounds, suprapubic tendern ess. Lower extremity without edema. SKIN: No rashes. MUSCULOSKELETAL: No gross joint swelling o r deformities. NEUROLOGICAL: Cranial nerves 2-12 grossly intact. No gross focal deficits. LABS: Sodium is 134, potassium 5.1, otherwise in computer. Hemoglobin is 8.8, white count 2.8, marquise telets 79, with a history of chronically low platelets since last August. Abdominal CT scan showed as mentioned, a nodular appearing liver with a moderate amount of ascites. IMPRESSION/PLAN: 1. End-stage renal disease. Dialyze tomorrow on a Monday, , Monday schedule. 2. Abdominal pain. No acute abnormality on CT scan. Some improvement after draining of ascites. Possibly just related to some abdominal distention from ascites versus irritable bowel versus interm ittent pain from her ventral hernia. Symptoms are quite mild at this time. 3. Ascites. She had a nodular appearing liver. Cirrhosis is a new diagnosis for her. She will re quire further evaluation. I would wonder about cardiac cirrhosis due to untreated sleep apnea and p ulmonary hypertension. She did have a PA pressure in the 60s on her last echo. I suggest that she have an outpatient sleep study as well as a referral to Gastroenterology for evaluation of her possi ble cirrhosis. 4. Anemia of chronic kidney disease. Continue Aranesp as per outpatient protocol. Thank you for this consultation. /[id number]/MODL
[2016-09-07] MEDS: oxyCODONE IR 5 MG TAB PO PRN (22:21)
[2016-09-07] MEDS: SENNOSIDES 1 TAB PO SCH (22:21)
[2016-09-08] MEDS ORDERED: Herbals/Supplements -Info Only PO SCH (09:00)
[2016-09-08] MEDS ORDERED: LEVOTHYROXINE 100 MCG TAB PO SCH (09:00)
[2016-09-08] MEDS ORDERED: PANTOPRAZOLE SODIUM 40 MG TAB PO SCH (09:00)
[2016-09-08] MEDS: LOSARTAN POTASSIUM 50 MG TAB PO SCH (09:08)
[2016-09-08] MEDS: SENNOSIDES 1 TAB PO SCH (09:08)
--- NOTE | 2016-09-08 10:48 | SOAPPROG ---
SOAP Progress Note Assessment/Plan: Assessment/Plan: ESRD: on HD TTS. - Will do HD today per routine. - Next HD on Monday after that. Anemia: Hgb 8.8, pt to get iron and epo per outpatient dialysis unit protocol. Subjective: No acute events overnight. Pt notes that her abdomen feels much better after paracentesis and no longer has pain or difficulty breathing. Objective: Vital Signs Temp Pulse Resp BP Pulse Ox 36.6 C 57 L 12 190/89 H 91 L 09/08/16 07:32 09/08/16 07:32 09/08/16 07:32 09/08/16 07:32 09/08/16 07:32 09/07/16 09/08/16 09/09/16 05:59 05:59 05:59 Output Total 25 Balance -25 PT 15.1 SEC (12.0-15.0) H 09/06/16 18:10 INR 1.19 (0.83-1.16) H 09/06/16 18:10 General: alert and oriented, no acute distress Eyes; EOMI, PERRL OP: Clear CV: RRR Resp: nonlabored respirations Abd; Soft, distended, NT Ext: trace edema BLE Neuro: CN II-XII Grossly intact, no asterixis Psych: cooperative, appropriate mood and affect Access: LUE AVF with thrill and bruit appreciated ICD10 Worksheet Patient Problems: Problems Problem Status Onset Abdominal pain Acute Ascites Acute Chest pain Acute Cholelithiasis Acute Chronic renal failure Acute Elevated troponin Acute Fever Acute Gallstone Acute Problem with dialysis access Acute Pulmonary edema Acute
--- NOTE | 2016-09-08 10:51 | HOSPPROG ---
Hospitalist Progress Note Assessment/Plan: Annelise Garcia is a 65 y/o female who presented to the ER with abdominal pain. CT scan shows moderate ascites, ? cirrhoisis. She has a ventral hernia without evidence of strangulation. *abdominal pain has ascites with 1250 ml of fluid removed pain his completely resolved *ventral hernia seen by Dr Thompson in ER no surgical intervention *ascites doesn't have SBP she will need to follow up with Gastroenterology for further evaluation of ascites/new diagnosis of cirrhosis *DM2 ADA diet *ESRD: dialysis today next dialysis Monday *pancytopenia *Diastolic chf doesn't appear to be in failure *Plan : discharged today after dialysis. Further follow up with the maintenance mechanic 2nd shift and with Nephrology Subjective: patient is feeling well today. Abdominal pain has resolved. Objective: Vital Signs Temp Pulse Resp BP Pulse Ox 36.6 C 57 L 12 190/89 H 91 L 09/08/16 07:32 09/08/16 07:32 09/08/16 07:32 09/08/16 07:32 09/08/16 07:32 09/07/16 09/08/16 09/09/16 05:59 05:59 05:59 Output Total 25 Balance -25 PT 15.1 SEC (12.0-15.0) H 09/06/16 18:10 INR 1.19 (0.83-1.16) H 09/06/16 18:10 - Physical Exam Constitutional: no apparent distress, chronically ill appearing Eyes: PERRL Ears, Nose, Mouth, Throat: hearing normal Cardiovascular: regular rate and rhythym Respiratory: no respiratory distress Gastrointestinal: normoactive bowel sounds, soft, non-tender abdomen Skin: warm, normal color Neurologic: AAOx3 Psychiatric: interacting appropriately, not anxious ICD10 Worksheet Patient Problems: Problems Problem Status Onset Abdominal pain Acute Ascites Acute Chest pain Acute Cholelithiasis Acute Chronic renal failure Acute Elevated troponin Acute Fever Acute Gallstone Acute Problem with dialysis access Acute Pulmonary edema Acute
[2016-09-08 11:58] VITALS: BP 141/82; PULSE 58; RESP 20; TEMP 98.1; O2SAT 93
--- NOTE | 2016-09-08 14:05 | GDS ---
[f rep st] DISCHARGE SUMMARY DISCHARGE DIAGNOSES: 1. Abdominal pain secondary to ascites. 2. Ventral hernia. 3. Ascites, concern for new diagnoses of cirrhosis. 4. Diabetes type 2. 5. End-stage renal disease. 6. Pancytopenia. 7. Diastolic congestive heart failure/euvolemic. CONSULTATIONS: Jeny Chavez MD with nephrology services. HISTORY OF PRESENT ILLNESS: Briefly, the patient is a 65-year-old female with end-stage renal disease who presented to the emergency room with abdominal pain. It came on acutely when she bumped her abdomen against the table, and she described it as severe. She had a CT scan which showed moderate ascites as well as questionable cirrhosis. She has a ventral hernia without evidence of strangulation. In the ER, she was evaluated by Dr. Thompson who did not recommend surgery at that time for her ventral hernia. She subsequently had a paracentesis during her stay that did not show spontaneous bacterial peritonitis. She is feeling markedly better after the paracentesis. The plan is for her to be discharged today after she has dialysis. HOSPITAL COURSE: 1. Abdominal pain. I suspect it is multifactorial. She hit her abdomen. In addition, she has ascites. She said she felt markedly better after greater than a liter of fluid was removed from her abdomen. 2. Ventral hernia. Further follow up with Dr. Thompson in the outpatient setting. 3. Ascites. She will need to follow up with the trial consultant for further evaluation of ascites and likely new diagnoses of cirrhosis. I have given her a name of a doctor to follow up with. 4. Diabetes type 2. ADA diet. 5. End-stage renal disease. She will get dialysis today prior to discharge and then get it again on Monday. 6. Pancytopenia, ongoing. 7. Diastolic congestive heart failure. Did not appear to be in failure during my evaluation. DISCHARGE CONDITION: Stable. Blood pressure is 141/82, heart rate is 58, respiratory rate is 20, O2 sats on room air 93%, temperature 36.7 Celsius. MEDICATIONS AT DISCHARGE: Please see the EMR. DISCHARGE INSTRUCTIONS: 1. I am recommending that she get an outpatient sleep study. 2. She needs to follow up with a trial consultant for further evaluation of her ascites and cirrhosis. 3. Continue dialysis as scheduled. /[id number]/MODL MTDD
== END 2016-09-08 17:48 | disposition home or self-care (01) | DRG 947 ==
LOC: F3E 22:22 → OBSVTOIN 09-07 16:38
PROVIDERS: ADMIT Student in an Organized Health Care Education/Training Program; ATTEND Student in an Organized Health Care Education/Training Program
PROC: 0W9G3ZX Drainage of Peritoneal Cavity, Percutaneous Approach, Diagnostic (ICD-10-PCS; principal; 2016-09-08)
PROC: 5A1D00Z (ICD-10-PCS; 2016-09-08)
DX: R18.8 Other ascites (principal); K74.60 Unspecified cirrhosis of liver; K43.9 Ventral hernia without obstruction or gangrene; I13.2 Hypertensive heart and chronic kidney disease with heart failure and with stage 5 chronic kidney disease, or end stage renal disease; N18.6 End stage renal disease; E11.22 Type 2 diabetes mellitus with diabetic chronic kidney disease; I50.30 Unspecified diastolic (congestive) heart failure; D63.1 Anemia in chronic kidney disease; D61.818 Other pancytopenia; G47.30 Sleep apnea, unspecified; I25.10 Atherosclerotic heart disease of native coronary artery without angina pectoris; E78.5 Hyperlipidemia, unspecified; Z95.5 Presence of coronary angioplasty implant and graft; Z99.2 Dependence on renal dialysis
CPT/HCPCS: 96374; G0378; J1170; J1335; J2405; J3010; Q9967

== ENCOUNTER 2016-10-04 18:49 | Inpatient (IN) | payer MEDICAID ==
--- NOTE | 2016-10-04 19:27 | EDPHY ---
H & P Stated Complaint: abd pain and cramping diarrhea Source: Patient, Family, Old records - Personal History Current Tetanus/Diphtheria Vaccine: Yes Current Tetanus Diphtheria and Acellular Pertussis (TDAP): Yes Tetanus Vaccine Date: per previous admission - Medical/Surgical History Hx Asthma: No Hx Chronic Respiratory Disease: No Hx Diabetes: Yes Hx Cardiac Disease: Yes Hx Renal Disease: Yes Hx Cirrhosis: No Hx Alcoholism: No Hx HIV/AIDS: No Hx Splenectomy or Spleen Trauma: No Other PMH: CHF,RENAL DIALYSIS T/TH/SAT, HTN, KIDNEY DISEASE, STRESS-DEPRESSION, ABDOMINAL AND LEG CRAMPING DURING DIALYSIS PULMONARY HTN, SLEEP APNEA O2 AT NIGHT, left arm fistula, myocardial surgical repair, cholecystectomy, cardiac stenting - Social History Smoking Status: Never smoked Time Seen by Provider: 10/04/16 19:14 HPI/ROS: CHIEF COMPLAINT: Abdominal cramping and diarrhea HISTORY OF PRESENT ILLNESS: This is a 65-year-old female presenting to the emergency department complaining of abdominal cramping diarrhea. Patient was seen at [facility] earlier and was sent here for further evaluation. Patient states the abdominal cramping and bloating with diarrhea onset yesterday morning, diarrhea resolved but continued abdominal cramping with nausea. Abdominal cramping persistent today with diarrhea starting this morning again with nausea. Denies any chest pain shortness of breath, patient states had dialysis this morning without complication. Denies any fever chills. Daughter stated she had something similar last month where the ended up having to do a paracentesis. REVIEW OF SYSTEMS: Constitutional: No fever, no chills. Decreased p.o. intake Eyes: No discharge. ENT: No sore throat. Cardiovascular: No chest pain, no palpitations. Respiratory: No cough, no shortness of breath. Gastrointestinal: abdominal pain, nausea. Diarrhea. no vomiting. Genitourinary: No hematuria. Musculoskeletal: No back pain. Skin: No rashes. Neurological: No headache. (Shira Patel) - Physical Exam Exam: General Appearance: Alert, no distress. Non ill or toxic appearing Eyes: Pupils equal and round no pallor or injection. Non icteric ENT, Mouth: Mucous membranes moist. Respiratory: There are no retractions, nonlabored respiratory effort. Diminished at the bases bilaterally airway patent Cardiovascular: Regular rate and rhythm. Gastrointestinal: Abdomen is soft , diffuse abdominal tenderness nondistended. Some bruising noted " I fell last week with cart, can't remember how I landed " no masses, bowel sounds normal. Neurological: No focal deficits. Answering questions appropriately Skin: Warm and dry, no rashes. No jaundice Musculoskeletal: Neck is supple nontender. Extremities: Left forearm fistula for dialysis noted positive bruit and positive thrill. Full range of motion. Psychiatric: Patient is oriented X 3, acting appropriately (Shira Patel) Constitutional: Initial Vital Signs Temperature (C) 36.8 C 10/04/16 18:53 Heart Rate 92 10/04/16 18:53 Respiratory Rate 20 10/04/16 18:53 Blood Pressure 201/87 H 10/04/16 18:53 O2 Sat (%) 96 10/04/16 18:53 O2 Delivery Mode Room Air Allergies/Adverse Reactions: aspirin Allergy (Severe, Verified 07/04/16 16:46) NSAIDS (Non-Steroidal Anti-Inflamma Allergy (Severe, Verified 07/04/16 16:46) Swelling/neck,face,throat morphine Allergy (Intermediate, Verified 07/04/16 16:47) Home Medications: Medication Instructions Recorded amLODIPine BESYLATE [Norvasc 10 mg 10 mg PO DAILY 08/24/15 (*)] Losartan Potassium [Cozaar 50 mg 100 mg PO DAILY 09/22/15 (*)] Levothyroxine [Synthroid 100 mcg 100 mcg PO DAILY 01/16/16 (*)] Pantoprazole Sodium [Protonix 40mg 40 mg PO DAILY 07/04/16 (*)] Acetaminophen [Tylenol 325mg (*)] 325 mg PO DAILY PRN 07/07/16 hydrALAZINE [Apresoline 50 mg (*)] 50 mg PO TID 07/07/16 Medical Decision Making - Diagnostics Imaging Results: Imaging Impressions Abdomen/Pelvis CT 10/04/16 20:11 Impression: 1. No definite significant change from the prior study. 2. Large ventral hernia, with no associated bowel obstruction. 3. Extensive ascites. The volume of ascites is somewhat less than on the prior study. There was an interval paracentesis, which drained 1250 mL of fluid. 4. Prominent renal atrophy, with no obstructive uropathy. 5. See above report for additional findings. Results called and discussed with Shira Patel N.P., on October 04, 2016 at 2105. ED Course/Re-evaluation: Discussed ED plan of care: CBC, CMP CT abdominal pelvis 2104: Spoke with Dr. Cruz ascites noted on CT. 2109: Is spoke with hospitalist Dr. Cheung excepted for patient admission. Discussed plan with patient, she will be admitted for further evaluation with the possibility of paracentesis. Patient agreed with plan (Shira Patel) I did not see this patient while she was in the emergency department. However her care was discussed with the nurse practitioner while the patient was in the department. I agree with treatment plan and management (Jack Sarmiento) Differential Diagnosis: Other differential diagnosis considered but not limited to hyperkalemia, complications due to end-stage liver disease, and hepatic disease (Shira Patel) - Data Points Laboratory Results: Laboratory Results 10/04/16 19:35 10/04/16 19:35 10/04/16 10/04/16 10/04/16 20:16 19:35 19:35 WBC RBC Hgb Hct MCV MCH MCHC RDW Plt Count MPV Neut % (Auto) Lymph % (Auto) [place] % (Auto) Eos % (Auto) Baso % (Auto) Nucleat RBC Rel Count Absolute Neuts (auto) Absolute Lymphs (auto) Absolute Monos (auto) Absolute Eos (auto) Absolute Basos (auto) Absolute Nucleated RBC Immature Gran % Immature Gran # PT 15.1 SEC H SEC REJ (12.0-15.0) INR 1.19 H TNP (0.83-1.16) APTT 39.9 SEC H SEC TNP (23.0-38.0) Sodium 134 mEq/L mEq/L (134-144) Potassium 4.2 mEq/L mEq/L (3.5-5.2) Chloride 99 mEq/L mEq/L (97-110) Carbon Dioxide 24 mEq/l mEq/l (22-31) Anion Gap 11 mEq/L mEq/L (8-16) BUN 22 mg/dL mg/dL (7-23) Creatinine 3.6 mg/dL H mg/dL (0.6-1.0) Estimated GFR 13 Glucose 90 mg/dL mg/dL (70-100) Calcium 9.2 mg/dL mg/dL (8.5-10.4) Phosphorus Total Bilirubin 1.0 mg/dL mg/dL (0.1-1.4) AST 26 IU/L IU/L (14-46) ALT 29 IU/L IU/L (9-52) Alkaline Phosphatase 154 IU/L H IU/L (38-126) Total Protein 6.4 g/dL g/dL (6.3-8.2) Albumin 3.7 g/dL g/dL (3.5-5.0) 10/04/16 10/04/16 19:35 14:35 WBC 3.03 10^3/uL L 10^3/uL (3.80-9.50) RBC 2.75 10^6/uL L 10^6/uL (4.18-5.33) Hgb 8.6 g/dL L g/dL (12.6-16.3) Hct 25.4 % L % (38.0-47.0) MCV 92.4 fL fL (81.5-99.8) MCH 31.3 pg pg (27.9-34.1) MCHC 33.9 g/dL g/dL (32.4-36.7) RDW 13.2 % % (11.5-15.2) Plt Count 90 10^3/uL L 10^3/uL (150-400) MPV 9.6 fL fL (8.7-11.7) Neut % (Auto) 72.9 % % (39.3-74.2) Lymph % (Auto) 16.2 % % (15.0-45.0) [place] % (Auto) 10.2 % % (4.5-13.0) Eos % (Auto) 0.0 % L % (0.6-7.6) Baso % (Auto) 0.0 % L % (0.3-1.7) Nucleat RBC Rel Count 0.0 % % (0.0-0.2) Absolute Neuts (auto) 2.21 10^3/uL 10^3/uL (1.70-6.50) Absolute Lymphs (auto) 0.49 10^3/uL L 10^3/uL (1.00-3.00) Absolute Monos (auto) 0.31 10^3/uL 10^3/uL (0.30-0.80) Absolute Eos (auto) 0.00 10^3/uL L 10^3/uL (0.03-0.40) Absolute Basos (auto) 0.00 10^3/uL L 10^3/uL (0.02-0.10) Absolute Nucleated RBC 0.00 10^3/uL 10^3/uL (0-0.01) Immature Gran % 0.7 % % (0.0-1.1) Immature Gran # 0.02 10^3/uL 10^3/uL (0.00-0.10) PT INR APTT Sodium Potassium Chloride Carbon Dioxide Anion Gap BUN Creatinine Estimated GFR Glucose Calcium Phosphorus 3.7 mg/dL mg/dL (2.5-4.5) Total Bilirubin AST ALT Alkaline Phosphatase Total Protein Albumin Medications Given: Discontinued Medications Ondansetron HCl (Zofran) 4 mg IVP EDNOW ONE Stop: 10/04/16 19:36 Last Admin: 10/04/16 20:15 Dose: 4 mg Departure - Departure Disposition: [facility] Acute Clinical Impression: Ascites Qualifiers: Ascites type: other type Qualified Code(s): R18.8 - Other ascites Condition: Good
[2016-10-04] MEDS ORDERED: ONDANSETRON 4 MG/2 ML VIAL IVP ONE (19:35)
[2016-10-04 19:53] LABS: % IMMATURE GRANULYOCYTES 0.7 % (0.0-1.1); ABSOLUTE IMMATURE GRANULOCYTES 0.02 10^3/uL (0.00-0.10); ADD DIFF? NO; ADD MORPH? NO; ADD SCAN? NO; ATYPICAL LYMPHOCYTE FLAG 0 (0-99); FRAGMENT RBC FLAG 0 (0-99); HEMATOCRIT 25.4 % (38.0-47.0); HEMOGLOBIN 8.6 g/dL (12.6-16.3); LEFT SHIFT FLG 0 (0-99); LIPEMIA HEMOLYSIS FLAG 90 (0-99); MEAN CELL HEMOGLOBIN 31.3 pg (27.9-34.1); MEAN CELL HEMOGLOBIN CONCENTR. 33.9 g/dL (32.4-36.7); MEAN CELL VOLUME 92.4 fL (81.5-99.8); MEAN PLATELET VOLUME 9.6 fL (8.7-11.7); PLATELET CLUMPS FLAG 10 (0-99); PLATELET COUNT 90 10^3/uL (150-400); RED BLOOD CELL COUNT 2.75 10^6/uL (4.18-5.33); RED CELL DISTRIBUTION WIDTH 13.2 % (11.5-15.2)
[2016-10-04 20:03] LABS: ALANINE AMINOTRANSFERASE 29 IU/L (9-52); ALBUMIN 3.7 g/dL (3.5-5.0); ALKALINE PHOSPHATASE 154 IU/L (38-126); ANION GAP 11 mEq/L (8-16); ASPARTATE AMINOTRANSFERASE 26 IU/L (14-46); CALCIUM 9.2 mg/dL (8.5-10.4); CARBON DIOXIDE 24 mEq/l (22-31); CHLORIDE 99 mEq/L (97-110); CREATININE 3.6 mg/dL (0.6-1.0); GLOMERULAR FILTRATION RATE 13; GLUCOSE 90 mg/dL (70-100); POTASSIUM 4.2 mEq/L (3.5-5.2); SODIUM 134 mEq/L (134-144); TOTAL PROTEIN 6.4 g/dL (6.3-8.2)
[2016-10-04 20:29] LABS: INR 1.19 (0.83-1.16); PROTIME(PATIENT) 15.1 SEC (12.0-15.0)
[2016-10-04 20:31] LABS: APTT 39.9 SEC (23.0-38.0)
[2016-10-04] MEDS ORDERED: ACETAMINOPHEN 325 MG TAB PO PRN (21:22)
[2016-10-04] MEDS ORDERED: HEPARIN 5,000 UNIT/0.5 ML SYR SC SCH (22:00)
[2016-10-04] MEDS ORDERED: NS 1,000 ML IV SCH (22:30)
[2016-10-04] MEDS: oxyCODONE IR 5 MG TAB PO PRN (22:58)
--- NOTE | 2016-10-04 23:05 | GHP ---
[f rep st] HISTORY AND PHYSICAL DATE OF ADMISSION: 10/04/2016 CHIEF COMPLAINT: Abdominal pain, distention. HISTORY OF PRESENT ILLNESS: A 65-year-old female with history of end-stage renal disease on dialysi s, diabetes, newly diagnosed cirrhosis, who was recently hospitalized the end of August with similar s ymptoms. At that time, the pain was attributed to an abdominal injury after hitting a table, as wel l as ascites. Symptoms improved significantly after 1 L of fluid was drained. She was doing well u ntil last week when she had a fall and landed on her belly. Had some bruising there. Reason she pr esented today is due to sharp abdominal pain from her belly button to the lower abdomen. It is inte rmittent. It is worse prior to a bowel movement. It is stabbing in nature. It is 10/10 at times. She has had diarrhea intermittently since Monday night up to 6 episodes of watery nonbloody stool. She had a couple episodes this morning at 3 a.m. No fevers or sweats. Reports chills. She has n ot been on any antibiotics. She has had increased abdominal swelling over the last couple days. No ill contacts. She did eat pork taquitos on Monday evening. She saw a telephone order dispatcher in [place] and was told that she needs a liver biopsy. She tried call ing him today to find out lab results, but has not gotten a call back. Denies chest pain, shortness of breath, or cough. Patient has not been eating or drinking much in the last couple days. REVIEW OF SYSTEMS: I completed a 10-point review of systems, negative except as noted in HPI. PAST MEDICAL HISTORY: 1. Abdominal pain, previously secondary to ascites. 2. Ventral hernia. Scheduled for repair by Dr. Thompson October 10. 3. Newly diagnosed cirrhosis. 4. Type 2 diabetes, diet controlled. 5. End-stage renal disease on dialysis Monday, , Monday. 6. Pancytopenia. 7. Diastolic heart failure. PAST SURGICAL HISTORY: 1. Hysterectomy. 2. Lipoma. 3. AV fistula. SOCIAL HISTORY: Lives in [place] by herself, but has a daughter and son close by. Denies alcohol, tobacco, or illicit's. FAMILY HISTORY: Mother with diabetes and of a heart attack. ALLERGIES: Aspirin, NSAIDs, morphine. MEDICATIONS: At home hydralazine 50 mg t.i.d., Norvasc 10 mg daily, Protonix 40 mg daily, losartan 100 mg daily, levothyroxine 100 mcg daily, Tylenol p.r.n. PHYSICAL EXAM: VITAL SIGNS: Temperature 36.8, blood pressure 201/87, now 163/74, heart rate in the 50s to 90s, respirations 20, 98% on room air. GENERAL: Mildly overweight, female, lying in bed, no acute distress. HEENT: PERRLA. Mildly dry mucous membranes. CV: Regular rate and rhy thm. No murmurs, gallops, or rubs. +1 edema over ankles bilaterally. LUNGS: Clear. No crackles. ABDOMEN: Soft, mild distention. Has a ventral hernia present. Mild epigastric tenderness with p alpation. Positive bowel sounds. Bruise over left side of abdomen. MUSCULOSKELETAL: 5/5 upper lo wer extremity strength. SKIN: Warm, dry. Ecchymoses over left thigh, daly, ankle, left breast. N EURO: 2 through 12 intact. PSYCH: Alert and oriented x3. LABORATORY DATA: Sodium 134, potassium 4.2, chloride 99, carbon dioxide 24, creatinine 3.6, calcium 9.2, total bilirubin 1, alkaline phosphatase is 154, total protein 6.4, albumin is 3.7, WBC is 3.3, hemoglobin 8.6, hematocrit 25, platelets 90. Abdominal CT no significant change from prior study. There is a large ventral hernia without bowel obstruction. She has extensive ascites somewhat less than prior study. Prominent renal atrophy. ASSESSMENT AND PLAN: 1. Acute abdominal pain. Differential includes recent fall, ascites, infection, gastroesophageal r eflux disease. CT demonstrates moderate ascites, no evidence of obstruction or infection. Will marquise n for IR drainage tomorrow. Will evaluate for . 2. P.r.n. oxycodone. No morphine with end-stage renal disease. 3. End-stage renal disease on dialysis, last today. Potassium is within normal. 4. Diarrhea: Differential includes gastroenteritis versus Clostridium difficile. No recent antibi otics. Will check a GI PCR. 5. Pancytopenia: No evidence of bleeding. 6. Normocytic anemia secondary to chronic renal disease. No indication for transfusion at this [facility]. 7. Diabetes diet controlled. 8. Hypothyroidism: Levothyroxine. 9. Newly diagnosed cirrhosis: The patient was seen by a telephone order dispatcher in [place]. He does r ecommend liver biopsy. Will try to obtain these records in the morning. Plan for IR guided paracen tesis in the morning. 10. Diet: Renal. 11. Deep venous thrombosis prophylaxis sequential compression devices with thrombocytopenia. 12. Disposition: Patient warrants inpatient admission given acute abdominal pain, ascites. /[id number]/MODL
[2016-10-05] MEDS: oxyCODONE IR 5 MG TAB PO PRN ×3 (03:12→12:07)
[2016-10-05 05:49] LABS: HEMATOCRIT 24.7 % (38.0-47.0); HEMOGLOBIN 8.2 g/dL (12.6-16.3); MEAN CELL HEMOGLOBIN 31.3 pg (27.9-34.1); MEAN CELL HEMOGLOBIN CONCENTR. 33.2 g/dL (32.4-36.7); MEAN CELL VOLUME 94.3 fL (81.5-99.8); RED BLOOD CELL COUNT 2.62 10^6/uL (4.18-5.33)
[2016-10-05 06:14] LABS: ANION GAP 10 mEq/L (8-16); CALCIUM 8.6 mg/dL (8.5-10.4); CARBON DIOXIDE 24 mEq/l (22-31); CHLORIDE 100 mEq/L (97-110); CREATININE 4.1 mg/dL (0.6-1.0); GLOMERULAR FILTRATION RATE 11; GLUCOSE 72 mg/dL (70-100); POTASSIUM 4.4 mEq/L (3.5-5.2); SODIUM 134 mEq/L (134-144)
[2016-10-05] MEDS: LOSARTAN POTASSIUM 50 MG TAB PO SCH (08:08)
[2016-10-05] MEDS: LEVOTHYROXINE 100 MCG TAB PO SCH (08:09)
[2016-10-05] MEDS: PANTOPRAZOLE SODIUM 40 MG TAB PO SCH (08:09)
--- NOTE | 2016-10-05 08:31 | HOSPPROG ---
Hospitalist Progress Note Assessment/Plan: Patient is a 65-year-old female with history of end-stage renal disease on dialysis, diabetes, new diagnosis cirrhosis. She presented emergency room due to sharp abdominal pain to her lower abdomen. Of note she is post to get a ventral hernia repair with Dr. Thompson on October 10. Today is my 1st encounter with the patient. Chart reviewed. * acute abdominal pain w associated nausea CT scan shows a large for ventral hernia without obstruction. She has extensive ascites. Was to go to IR today, but this is cancelled due to below. * ventral hernia hernia surgery with Dr. Thompson the end of this month to get surgery tomorrow/ he will address the ascites in addition * end-stage renal disease Dialysis is on Monday Nephrology is aware * anemia secondary to chronic renal disease * hypothyroidism On Synthroid *newly diagnosed cirrhosis has a f/u appt w GI *Diastolic heart failure not in failure *hypothyroidism: Synthroid *DVT prophylaxis: athrombic pumps. has low platelet counts (no LMWH) *Plan: met with the patient with Dr Jay Alonzo and the plan is to have ventral hernia repair tomorrow, with paracentesis in the ER. Dr Cruz updated on plan of care. Requesting further eval of her AV fistula. I spoke with the patient's daughter, Rocío, via the phone in the patient's room to update her about plan of care. She is fine with this. Subjective: Annelise is c/o nausea this morning. Objective: Vital Signs Temp Pulse Resp BP Pulse Ox 36.8 C 78 18 174/66 H 92 10/05/16 08:00 10/05/16 08:00 10/05/16 08:00 10/05/16 08:10 10/05/16 08:00 Laboratory Results 10/05/16 04:42 10/05/16 04:42 10/04/16 10/05/16 10/06/16 05:59 05:59 05:59 Intake Total 50 Balance 50 PT 15.1 SEC (12.0-15.0) H 10/04/16 20:16 INR 1.19 (0.83-1.16) H 10/04/16 20:16 - Physical Exam Constitutional: appears nourished, chronically ill appearing, uncomfortable Eyes: PERRL Ears, Nose, Mouth, Throat: hearing normal Cardiovascular: regular rate and rhythym Respiratory: no respiratory distress Gastrointestinal: normoactive bowel sounds, ascites, other (large hernia) Skin: warm, No normal color (pale) Musculoskeletal: no muscle tenderness Neurologic: AAOx3 Psychiatric: interacting appropriately ICD10 Worksheet Patient Problems: Problems Problem Status Onset Ascites Acute Abdominal pain Acute Ascites Acute Chest pain Acute Cholelithiasis Acute Chronic renal failure Acute Elevated troponin Acute Fever Acute Gallstone Acute Problem with dialysis access Acute Pulmonary edema Acute
[2016-10-05] MEDS: ONDANSETRON DISINTEGRATING 4 MG TAB PO PRN ×2 (08:38→16:13)
[2016-10-05] MEDS ORDERED: LIDOCAINE 1% 300 MG/30 ML SDV ONE (09:19)
--- NOTE | 2016-10-05 10:28 | SOAPPROG ---
THO Progress Note Assessment/Plan: Assessment:Plan: ESRD-plan for dialysis -normally is TThSa at [facility] AVF-pulsatile -prior recurrent stenosis -fistulagram requested Anemia-transfuse prior to surgery tomorrow Hernia-repair tomorrow Ascites-under evaluation -reportedly needs liver biopsy -ascites will be drained tomorrow with surgery -wonder if liver biopsy could be performed at the same time -will defer to Dr. Thompson 10/05/16 10:25 Subjective: abdominal pain better Objective: Vital Signs Temp Pulse Resp BP Pulse Ox 36.8 C 78 18 174/66 H 92 10/05/16 08:00 10/05/16 08:00 10/05/16 08:00 10/05/16 08:10 10/05/16 08:00 Laboratory Results 10/05/16 04:42 10/05/16 04:42 10/04/16 10/05/16 10/06/16 05:59 05:59 05:59 Intake Total 50 Balance 50 PT 15.1 SEC (12.0-15.0) H 10/04/16 20:16 INR 1.19 (0.83-1.16) H 10/04/16 20:16 Physical Exam - Physical Exam General Appearance: WD/WN, alert, no apparent distress, other (fistula with pulsatile flow, vein does not collapse with change in position) EENT: normal ENT inspection Neck: normal inspection Respiratory: lungs clear, normal breath sounds, No respiratory distress Cardiac/Chest: regular rate, rhythm, systolic murmur Abdomen: normal bowel sounds, non-tender Extremities: other (brusing from fall), No swelling ICD10 Worksheet Patient Problems: Problems Problem Status Onset Ascites Acute Abdominal pain Acute Ascites Acute Chest pain Acute Cholelithiasis Acute Chronic renal failure Acute Elevated troponin Acute Fever Acute Gallstone Acute Problem with dialysis access Acute Pulmonary edema Acute
[2016-10-05] MEDS ORDERED: ceFAZolin 2 GM/DEXTROSE 100 ML IV ONE (16:04)
--- NOTE | 2016-10-05 16:16 | SOAPPROG ---
THO Progress Note Assessment/Plan: Assessment/Plan: 65 Y F c CRF on HD; newly diagnosed cirrhosis, etiology unclear at this point; larger ventral hernia. Admitted with abdominal pain. Seen and examined with medicine, renal, and Dr. Thompson earlier today. Patient was originally scheduled for surgery next week. Will instead move ventral hernia repair to tomorrow, 10/06. Can do paracentesis at same time. Dr. Cruz to arrange for early HD in am. Also, fistulogram planned to evaluate pulsatile quality of AVF, r/o central stenosis. Patient has outpatient arrangements to see GI in [place] in October. Risks and options discussed. Consent in chart. NPO p midnight. Ppx pre op abx. S: abdomen feeling better, still uncomfortable, no SOB O: alert, nad no wob abd soft, reducible 10/05/16 16:09 Objective: Vital Signs Temp Pulse Resp BP Pulse Ox 36.7 C 58 L 18 189/73 H 92 10/05/16 14:42 10/05/16 14:42 10/05/16 14:42 10/05/16 14:42 10/05/16 14:42 Laboratory Results 10/05/16 04:42 10/05/16 04:42 10/04/16 10/05/16 10/06/16 05:59 05:59 05:59 Intake Total 50 Balance 50 PT 15.1 SEC (12.0-15.0) H 10/04/16 20:16 INR 1.19 (0.83-1.16) H 10/04/16 20:16 ICD10 Worksheet Patient Problems: Problems Problem Status Onset Ascites Acute Abdominal pain Acute Ascites Acute Chest pain Acute Cholelithiasis Acute Chronic renal failure Acute Elevated troponin Acute Fever Acute Gallstone Acute Problem with dialysis access Acute Pulmonary edema Acute
[2016-10-06] MEDS: oxyCODONE IR 5 MG TAB PO PRN (00:06)
[2016-10-06 05:11] LABS: HEMATOCRIT 24.6 % (38.0-47.0); HEMOGLOBIN 8.3 g/dL (12.6-16.3); MEAN CELL HEMOGLOBIN 31.3 pg (27.9-34.1); MEAN CELL HEMOGLOBIN CONCENTR. 33.7 g/dL (32.4-36.7); MEAN CELL VOLUME 92.8 fL (81.5-99.8); RED BLOOD CELL COUNT 2.65 10^6/uL (4.18-5.33); RED CELL DISTRIBUTION WIDTH 13.2 % (11.5-15.2)
[2016-10-06 05:32] LABS: ALBUMIN 3.3 g/dL (3.5-5.0); ANION GAP 12 mEq/L (8-16); CALCIUM 8.7 mg/dL (8.5-10.4); CARBON DIOXIDE 24 mEq/l (22-31); CHLORIDE 100 mEq/L (97-110); CREATININE 5.9 mg/dL (0.6-1.0); GLOMERULAR FILTRATION RATE 7; GLUCOSE 79 mg/dL (70-100); POTASSIUM 4.7 mEq/L (3.5-5.2); SODIUM 136 mEq/L (134-144)
[2016-10-06] MEDS ORDERED: ceFAZolin 2 GM/DEXTROSE 100 ML IV ONE (07:00)
[2016-10-06] MEDS ORDERED: LR 1,000 ML IV ONE (08:25)
[2016-10-06] MEDS ORDERED: NS 1,000 ML IV ONE (08:35)
[2016-10-06] MEDS ORDERED: REMIFENTANIL HCL 1 MG VIAL ONE (09:35)
[2016-10-06] MEDS ORDERED: fentaNYL 100 MCG/2 ML INJ ONE (09:35)
[2016-10-06] MEDS ORDERED: PROPOFOL 200 MG/20 ML VIAL ONE (09:35)
[2016-10-06] MEDS ORDERED: ROCURONIUM 100 MG/10 ML VIAL ONE (09:37)
[2016-10-06] MEDS ORDERED: LIDOCAINE 2% 5 ML SDV ONE (09:39)
--- NOTE | 2016-10-06 09:41 | SOAPPROG ---
THO Progress Note Assessment/Plan: Assessment: 1. ESRD. Pt gone to OR for hernia repair this am, not seen. Labs look fine this am. Will dialyze later this am after surgery. Plan for next dialysis Monday. 2. Anemia. Continue aranesp as outpatient. Tx prn for hgb < 7. 3. Thrombocytopenia. Chronic. 4. Ascites. Possible cirrhosis although recent CT liver looked nl, LFTs ok. Plan: 10/06/16 09:37 10/06/16 09:38 10/06/16 09:39 10/06/16 09:40 10/06/16 09:41 Objective: Vital Signs Temp Pulse Resp BP Pulse Ox 36.6 C 62 16 193/83 H 93 10/06/16 08:46 10/06/16 08:46 10/06/16 08:46 10/06/16 08:46 10/06/16 08:46 Laboratory Results 10/06/16 04:44 10/06/16 04:44 10/05/16 10/06/16 10/07/16 05:59 05:59 05:59 Intake Total 50 350 Output Total 150 Balance 50 200 PT 15.1 SEC (12.0-15.0) H 10/04/16 20:16 INR 1.19 (0.83-1.16) H 10/04/16 20:16 ICD10 Worksheet Patient Problems: Problems Problem Status Onset Ascites Acute Abdominal pain Acute Ascites Acute Chest pain Acute Cholelithiasis Acute Chronic renal failure Acute Elevated troponin Acute Fever Acute Gallstone Acute Problem with dialysis access Acute Pulmonary edema Acute
[2016-10-06] MEDS ORDERED: DEXAMETHASONE 4 MG/ML VIAL ONE (10:19)
[2016-10-06] MEDS ORDERED: ONDANSETRON 4 MG/2 ML VIAL ONE (10:19)
[2016-10-06] MEDS ORDERED: SUGAMMADEX SODIUM 200 MG/2 ML VIAL IVP ONE (10:45)
--- NOTE | 2016-10-06 11:10 | POSTOPPROG ---
Post Op Note Date of Operation: 10/06/16 Surgeon: Ulisses Thompson Interactive Designer: Lori Ford Anesthesiologist: Lori Anesthesia: GET(General Endotracheal) Pre-op Diagnosis: Ventral Hernia Post-op Diagnosis: Ventral hernia and ascities Indication: Pain Procedure: Open ventral hernia repair with mesh, paracentesis Findings: Large ventral hernia, ascities Inf/Abcess present in the surg proc area at time of surgery?: No Depth: Organ Space EBL: 50-100 Complications: None Drains: [place] Specimen(s): Hernia sac
[2016-10-06] MEDS ORDERED: HYDROmorphONE/DILAUDID 1 MG/ML SYR IVP PRN ×2 (11:12→11:57)
[2016-10-06] MEDS ORDERED: PROMETHAZINE HCL 25 MG/ML INJ IVP ONE (11:59)
[2016-10-06] MEDS ORDERED: fentaNYL 100 MCG/2 ML INJ IVP ONE (11:59)
--- NOTE | 2016-10-06 14:36 | HOSPPROG ---
Hospitalist Progress Note Assessment/Plan: Patient is a 65-year-old female with history of end-stage renal disease on dialysis, diabetes, new diagnosis cirrhosis. She presented emergency room due to sharp abdominal pain to her lower abdomen. Reviewed her care with Dr Chavez , with nephrology. * ventral hernia POD #0 s/p open ventral hernia repair w mesh and paracentesis pt c/o pain during my eval jones drain in place with blood drainage/drsg dry, intact * acute abdominal pain w associated nausea CT scan shows a large for ventral hernia without obstruction. * end-stage renal disease Dialysis is on Monday * anemia secondary to chronic renal disease getting 2 units of prbc now during dialysis * hypothyroidism On Synthroid *newly diagnosed cirrhosis/ascites has a f/u appt w GI has normal lft's *Diastolic heart failure not in failure *hypothyroidism: Synthroid *DVT prophylaxis: athrombic pumps. has low platelet counts (no LMWH at this time ) *Plan:dialysis today/repeat labs in a.m./ continue pain medications and antiemetics Subjective: Annelise is very drowsy, c/o abdominal discomfort (she is getting dialysis during my eval) Objective: Vital Signs Temp Pulse Resp BP Pulse Ox 36.3 C 62 16 193/83 H 93 10/06/16 12:47 10/06/16 08:46 10/06/16 08:46 10/06/16 08:46 10/06/16 08:46 Laboratory Results 10/06/16 04:44 10/06/16 04:44 10/05/16 10/06/16 10/07/16 05:59 05:59 05:59 Intake Total 50 350 700 Output Total 150 Balance 50 200 700 PT 15.1 SEC (12.0-15.0) H 10/04/16 20:16 INR 1.19 (0.83-1.16) H 10/04/16 20:16 - Physical Exam Constitutional: chronically ill appearing, obese, uncomfortable, No not in pain Eyes: PERRL Ears, Nose, Mouth, Throat: hearing normal Cardiovascular: regular rate and rhythym Respiratory: no respiratory distress Gastrointestinal: tenderness, other (drsg in place/ jones with bloody drainage) Skin: warm Neurologic: other (sleep, but awakens easily w verbal stimuli) ICD10 Worksheet Patient Problems: Problems Problem Status Onset Ascites Acute Abdominal pain Acute Ascites Acute Chest pain Acute Cholelithiasis Acute Chronic renal failure Acute Elevated troponin Acute Fever Acute Gallstone Acute Problem with dialysis access Acute Pulmonary edema Acute
[2016-10-06] MEDS ORDERED: LIDOCAINE 1% *Not for Epidural 20 ML MDV ONE (16:47)
[2016-10-06] MEDS: LEVOTHYROXINE 100 MCG TAB PO SCH (17:10)
[2016-10-06] MEDS: LOSARTAN POTASSIUM 50 MG TAB PO SCH (17:11)
[2016-10-06] MEDS: PANTOPRAZOLE SODIUM 40 MG TAB PO SCH (17:11)
[2016-10-06] MEDS: HYDROmorphONE/DILAUDID 1 MG/ML SYR IVP PRN ×2 (17:52→21:56)
[2016-10-06] MEDS: ENALAPRILAT DIHYDRATE 1.25 MG/ML VIAL IVP PRN (18:27)
[2016-10-07] MEDS: HYDROmorphONE/DILAUDID 1 MG/ML SYR IVP PRN ×5 (03:06→19:44)
[2016-10-07 05:25] LABS: % IMMATURE GRANULYOCYTES 0.4 % (0.0-1.1); ABSOLUTE IMMATURE GRANULOCYTES 0.02 10^3/uL (0.00-0.10); ADD DIFF? NO; ADD MORPH? NO; ADD SCAN? NO; ATYPICAL LYMPHOCYTE FLAG 0 (0-99); FRAGMENT RBC FLAG 0 (0-99); HEMATOCRIT 31.7 % (38.0-47.0); LEFT SHIFT FLG 0 (0-99); LIPEMIA HEMOLYSIS FLAG 90 (0-99); MEAN CELL HEMOGLOBIN CONCENTR. 34.7 g/dL (32.4-36.7); MEAN CELL VOLUME 89.3 fL (81.5-99.8); MEAN PLATELET VOLUME 9.4 fL (8.7-11.7); PLATELET CLUMPS FLAG 0 (0-99); PLATELET COUNT 89 10^3/uL (150-400); RED BLOOD CELL COUNT 3.55 10^6/uL (4.18-5.33); RED CELL DISTRIBUTION WIDTH 14.2 % (11.5-15.2)
[2016-10-07 05:46] LABS: ALBUMIN 3.2 g/dL (3.5-5.0); ANION GAP 12 mEq/L (8-16); CALCIUM 8.6 mg/dL (8.5-10.4); CARBON DIOXIDE 24 mEq/l (22-31); CHLORIDE 99 mEq/L (97-110); CREATININE 4.3 mg/dL (0.6-1.0); GLOMERULAR FILTRATION RATE 10; GLUCOSE 70 mg/dL (70-100); POTASSIUM 4.6 mEq/L (3.5-5.2); SODIUM 135 mEq/L (134-144)
[2016-10-07] MEDS: PANTOPRAZOLE SODIUM 40 MG TAB PO SCH (08:02)
[2016-10-07] MEDS: LOSARTAN POTASSIUM 50 MG TAB PO SCH (08:03)
[2016-10-07] MEDS: LEVOTHYROXINE 100 MCG TAB PO SCH (08:03)
--- NOTE | 2016-10-07 09:49 | SOAPPROG ---
SOLUIZA Progress Note Assessment/Plan: Assessment:Plan: ESRD-plan for dialysis Monday -normally is TThSa at [facility] AVF-pulsatile -prior recurrent stenosis -fistulagram requested Anemia-transfused yesterday Hernia-s/p repair -drain in place -abdomen silent -drain in place Ascites-under evaluation 10/07/16 09:44 Subjective: c/o abdominal pain Objective: Vital Signs Temp Pulse Resp BP Pulse Ox 36.6 C 61 18 194/69 H 93 10/07/16 07:44 10/07/16 07:44 10/07/16 07:44 10/07/16 07:44 10/07/16 07:44 Laboratory Results 10/07/16 04:50 10/07/16 04:50 10/06/16 10/07/16 10/08/16 05:59 05:59 05:59 Intake Total 350 700 Output Total 150 60 Balance 200 640 PT 15.1 SEC (12.0-15.0) H 10/04/16 20:16 INR 1.19 (0.83-1.16) H 10/04/16 20:16 Physical Exam - Physical Exam General Appearance: WD/WN, alert, mild distress EENT: normal ENT inspection Neck: normal inspection Respiratory: lungs clear, normal breath sounds, No respiratory distress Cardiac/Chest: regular rate, rhythm, systolic murmur Abdomen: non-tender, other (drain in place), No normal bowel sounds Skin: normal color, warm/dry Extremities: No swelling ICD10 Worksheet Patient Problems: Problems Problem Status Onset Ascites Acute Abdominal pain Acute Ascites Acute Chest pain Acute Cholelithiasis Acute Chronic renal failure Acute Elevated troponin Acute Fever Acute Gallstone Acute Problem with dialysis access Acute Pulmonary edema Acute
--- NOTE | 2016-10-07 10:17 | HOSPPROG ---
Hospitalist Progress Note Assessment/Plan: Patient is a 65-year-old female with history of end-stage renal disease on dialysis, diabetes, new diagnosis cirrhosis. She presented emergency room due to sharp abdominal pain to her lower abdomen. s/p hernia repair; POD #1, no flatus. Patient new to me today -ventral hernia POD #1 s/p open ventral hernia repair w mesh and paracentesis Pain currently in good control. jones drain in place with blood drainage/drsg dry, intact * end-stage renal disease Dialysis is on Monday will have fistulagram today. Has large pulsative AVF, Dialysis on Sunday 10/08 * anemia secondary to chronic renal disease; s/p PRBC x2 10/06 - SPCM: will follow caloric intake. dietary consult * hypothyroidism On Synthroid *newly diagnosed cirrhosis/ascites has a f/u appt w GI has normal lft's *Diastolic heart failure not in failure *hypothyroidism: Synthroid *DVT prophylaxis: athrombic pumps. has low platelet counts (no LMWH at this time ) Plan: fistulagram today, follow abdominal findings, continue NPO until flatus, following with surgery, encourage use of incentive spirometer and out of bed as tolerated. ; dietary consult Subjective: Awake. Reports she does have some abdominal pain. Denies shortness of breath or chest pain. No history of pulmonary disease or asthma. Objective: Vital Signs Temp Pulse Resp BP Pulse Ox 36.6 C 61 18 194/69 H 93 10/07/16 07:44 10/07/16 07:44 10/07/16 07:44 10/07/16 07:44 10/07/16 07:44 Laboratory Results 10/07/16 04:50 10/07/16 04:50 10/06/16 10/07/16 10/08/16 05:59 05:59 05:59 Intake Total 350 700 Output Total 150 60 Balance 200 640 PT 15.1 SEC (12.0-15.0) H 10/04/16 20:16 INR 1.19 (0.83-1.16) H 10/04/16 20:16 - Time Spent With Patient Time Spent with Patient: greater than 35 minutes Time Spent with Patient: Greater than 35 minutes spent on this patients care, greater than 50% of time spent counseling, educating, and coordinating care regarding the above mentioned plan. - Pending Discharge Pending Discharge Within 24 Hours: No Pending Discharge Within 48 Hours: No - Physical Exam Constitutional: no apparent distress Eyes: PERRL Ears, Nose, Mouth, Throat: moist mucous membranes Cardiovascular: regular rate and rhythym, systolic murmur Respiratory: no respiratory distress, no rales or rhonchi, clear to auscultation Gastrointestinal: normoactive bowel sounds, tenderness ( Tenderness about the surgical site and the JONES drain shows good serosanguineous drainage. No rebound noted. No voluntary or involuntary guarding) Genitourinary: no bladder fullness Skin: warm Musculoskeletal: full muscle strength Neurologic: AAOx3, CN II-XII Intact Psychiatric: interacting appropriately ICD10 Worksheet Patient Problems: Problems Problem Status Onset Chest pain Acute Pulmonary edema Acute Chronic renal failure Acute Problem with dialysis access Acute Gallstone Acute Elevated troponin Acute Cholelithiasis Acute Fever Acute Abdominal pain Acute Ascites Acute Ascites Acute
--- NOTE | 2016-10-07 10:43 | SOAPPROG ---
SOAP Progress Note Assessment/Plan: Assessment: 65 yo female POD #1 s/p ventral hernia repair with mesh and paracentesis for newly diagnosed ascites. S: Patient is complaining of some incisional abdominal pain well controlled with current meds. Denies VILLASENOR, difficulty breathing, N/V. No flatus or bowel movements yet. Consuming ice chips only. No other concerns at this time. O: Slightly drowsy, NAD No increased WOB Bowel sounds present Proportional incisional abd pain Dressing intact and dry MARLEN drain in place with serosang drainage Plan: Continue pain control Monitor MARLEN drain output Advance diet to clears per Dr. Thompson 10/07/16 10:25 Objective: Vital Signs Temp Pulse Resp BP Pulse Ox 36.6 C 61 18 194/69 H 93 10/07/16 07:44 10/07/16 07:44 10/07/16 07:44 10/07/16 07:44 10/07/16 07:44 Laboratory Results 10/07/16 04:50 10/07/16 04:50 10/06/16 10/07/16 10/08/16 05:59 05:59 05:59 Intake Total 350 700 Output Total 150 60 Balance 200 640 PT 15.1 SEC (12.0-15.0) H 10/04/16 20:16 INR 1.19 (0.83-1.16) H 10/04/16 20:16 ICD10 Worksheet Patient Problems: Problems Problem Status Onset Ascites Acute Abdominal pain Acute Ascites Acute Chest pain Acute Cholelithiasis Acute Chronic renal failure Acute Elevated troponin Acute Fever Acute Gallstone Acute Problem with dialysis access Acute Pulmonary edema Acute
[2016-10-07] MEDS: ONDANSETRON 4 MG/2 ML VIAL IVP PRN (11:31)
[2016-10-07] MEDS: oxyCODONE IR 5 MG TAB PO PRN (12:46)
[2016-10-08] MEDS: HYDROmorphONE/DILAUDID 1 MG/ML SYR IVP PRN ×5 (02:04→22:33)
[2016-10-08 05:27] LABS: HEMOGLOBIN 11.6 g/dL (12.6-16.3); MEAN CELL HEMOGLOBIN 30.9 pg (27.9-34.1); MEAN CELL HEMOGLOBIN CONCENTR. 34.1 g/dL (32.4-36.7); MEAN CELL VOLUME 90.4 fL (81.5-99.8); RED BLOOD CELL COUNT 3.76 10^6/uL (4.18-5.33); RED CELL DISTRIBUTION WIDTH 13.9 % (11.5-15.2)
[2016-10-08 05:54] LABS: ALBUMIN 3.3 g/dL (3.5-5.0); ANION GAP 17 mEq/L (8-16); CALCIUM 8.3 mg/dL (8.5-10.4); CARBON DIOXIDE 20 mEq/l (22-31); CHLORIDE 98 mEq/L (97-110); CREATININE 6.2 mg/dL (0.6-1.0); GLOMERULAR FILTRATION RATE 7; GLUCOSE 54 mg/dL (70-100); POTASSIUM 4.8 mEq/L (3.5-5.2); SODIUM 135 mEq/L (134-144)
--- NOTE | 2016-10-08 09:44 | SOAPPROG ---
SOAP Progress Note Assessment/Plan: Assessment: Patient is a 65-year-old female with history of end-stage renal disease on dialysis, diabetes, new diagnosis cirrhosis. -ventral hernia POD #2 s/p open ventral hernia repair w mesh and paracentesis Pain currently in good control. jones drain in place with blood drainage/drsg dry, intact * end-stage renal disease Dialysis is on Monday will have fistulagram today. Has large pulsative AVF, Dialysis on Sunday 10/08 * anemia secondary to chronic renal disease; s/p PRBC x2 10/06 * hypothyroidism On Synthroid *newly diagnosed cirrhosis/ascites has a f/u appt w GI has normal lft's *DVT prophylaxis: athrombic pumps. has low platelet counts (no LMWH at this time ) Clears - advance slowly as bowel function returns Subjective: Awake. Pain controlled. No flatus. Worried about cirrhosis Objective: Vital Signs Temp Pulse Resp BP Pulse Ox 36.7 C 65 16 174/53 H 89 L 10/08/16 07:39 10/08/16 07:39 10/08/16 07:39 10/08/16 07:39 10/08/16 07:39 Laboratory Results 10/08/16 04:45 10/08/16 04:45 10/07/16 10/08/16 10/09/16 05:59 05:59 05:59 Intake Total 700 200 Output Total 60 90 Balance 640 110 PT 15.1 SEC (12.0-15.0) H 10/04/16 20:16 INR 1.19 (0.83-1.16) H 10/04/16 20:16 Physical Exam - Physical Exam General Appearance: WD/WN, alert, no apparent distress EENT: PERRL/EOMI, normal ENT inspection, No scleral icterus (R), No scleral icterus (L), No hearing deficit Neck: supple Respiratory: lungs clear, normal breath sounds Cardiac/Chest: regular rate, rhythm, other (AV fistula LUE) Abdomen: soft, other (hypoactive bowel sounds, appropriately tender, dressing dry. JONES with serosanguinous fluid) Extremities: normal range of motion, other (AV fistula LUE) Neuro/Psych: no motor/sensory deficits, alert, normal mood/affect ICD10 Worksheet Patient Problems: Problems Problem Status Onset Ascites Acute Abdominal pain Acute Ascites Acute Chest pain Acute Cholelithiasis Acute Chronic renal failure Acute Elevated troponin Acute Fever Acute Gallstone Acute Problem with dialysis access Acute Pulmonary edema Acute
--- NOTE | 2016-10-08 11:17 | SOAPPROG ---
SOAP Progress Note Assessment/Plan: Assessment: ESRD- [facility] TTS -HD today -plans for fistulagram on Monday S/p hernia repair- on clears Cirrhosis with ascites Anemia of CKD- Hb at goal MBD of CKD- add Phoslo binder and renal diet as diet is advanced post op [facility] pager [phone] 10/08/16 12:35 Subjective: Pt seen on dialysis at 12:33. She is using AVF Qb 400, 3K/2.5Ca bath, goal UF 1- 2 kg. Complains of ongoing abd pain, taking clears but not really hungry. No sob. Plans for fistulagram Monday. Objective: Vital Signs Temp Pulse Resp BP Pulse Ox 36.7 C 76 20 191/68 H 93 10/08/16 11:09 10/08/16 11:09 10/08/16 11:09 10/08/16 11:09 10/08/16 11:09 Laboratory Results 10/08/16 04:45 10/08/16 04:45 10/07/16 10/08/16 10/09/16 05:59 05:59 05:59 Intake Total 700 200 Output Total 60 90 20 Balance 640 110 -20 PT 15.1 SEC (12.0-15.0) H 10/04/16 20:16 INR 1.19 (0.83-1.16) H 10/04/16 20:16 Physical Exam - Physical Exam General Appearance: alert, no apparent distress EENT: other (mmm) Neck: supple Respiratory: lungs clear (ant bilat) Cardiac/Chest: regular rate, rhythm, systolic murmur (II/ throughout) Abdomen: other (dressing c/d/i, tender diffusely, no r/g) Extremities: other (no edema) Neuro/Psych: alert, oriented x 3 ICD10 Worksheet Patient Problems: Problems Problem Status Onset Ascites Acute Abdominal pain Acute Ascites Acute Chest pain Acute Cholelithiasis Acute Chronic renal failure Acute Elevated troponin Acute Fever Acute Gallstone Acute Problem with dialysis access Acute Pulmonary edema Acute
[2016-10-08] MEDS: LOSARTAN POTASSIUM 50 MG TAB PO SCH (15:06)
--- NOTE | 2016-10-08 16:32 | HOSPPROG ---
Hospitalist Progress Note Assessment/Plan: Patient is a 65-year-old female with history of end-stage renal disease on dialysis, diabetes, new diagnosis cirrhosis. She presented emergency room due to sharp abdominal pain to her lower abdomen. s/p hernia repair; POD #2, no flatus. patient is slowly improving postoperatively. post dialysis it is noted the patient's blood pressure continues to be elevated and she is complaining of back pain. She reports she laid on her back to [place]. She denies complaint of a headache nausea or vomiting -ventral hernia POD #2 s/p open ventral hernia repair w mesh and paracentesis Pain currently in good control. jones drain in place with blood drainage/drsg dry, intact * end-stage renal disease Dialysis is on Monday; Dialysis today. will have fistulagram today. Has large pulsative AVF, * New problem today:Significant hypertension noted while in dialysis. Patient had not received her antihypertensive medications and these were given orally while in dialysis. Will follow her blood pressure curve and if needed give more hydralazine IV. Patient will be given Vasa tech. Her blood pressure remains elevated despite Norvasc and Cozaar. * Back pain. This appears to be musculoskeletal. It is an approximately the mid to low thoracic region and was relieved by lying on her side. * anemia secondary to chronic renal disease; s/p PRBC x2 10/06 - SPCM: will follow caloric intake. dietary consult * hypothyroidism On Synthroid *newly diagnosed cirrhosis/ascites has a f/u appt w GI has normal lft's *Diastolic heart failure not in failure *hypothyroidism: Synthroid *DVT prophylaxis: athrombic pumps. has low platelet counts (no LMWH at this time ) Plan: Dialysis today and fistulogram today or on Monday. encourage use of incentive spirometer and out of bed as tolerated. ; dietary consult Subjective: No complaints. Has some mild abdominal pain but it is improving Objective: Vital Signs Temp Pulse Resp BP Pulse Ox 36.7 C 76 20 204/77 H 93 10/08/16 11:09 10/08/16 11:09 10/08/16 11:09 10/08/16 15:06 10/08/16 11:09 Laboratory Results 10/08/16 04:45 10/08/16 04:45 10/07/16 10/08/16 10/09/16 05:59 05:59 05:59 Intake Total 700 200 Output Total 60 90 20 Balance 640 110 -20 PT 15.1 SEC (12.0-15.0) H 10/04/16 20:16 INR 1.19 (0.83-1.16) H 10/04/16 20:16 - Time Spent With Patient Time Spent with Patient: greater than 35 minutes Time Spent with Patient: Greater than 35 minutes spent on this patients care, greater than 50% of time spent counseling, educating, and coordinating care regarding the above mentioned plan. - Pending Discharge Pending Discharge Within 24 Hours: No Pending Discharge Within 48 Hours: No - Physical Exam Constitutional: no apparent distress, chronically ill appearing Eyes: PERRL Ears, Nose, Mouth, Throat: moist mucous membranes Cardiovascular: regular rate and rhythym, no murmur, rub, or gallop, systolic murmur Respiratory: no respiratory distress, no rales or rhonchi, clear to auscultation Gastrointestinal: normoactive bowel sounds, tenderness ( overall very mild tenderness without rebound or palpable mass. Surgical wound is healing wel.) Skin: warm Musculoskeletal: generalized weakness Neurologic: AAOx3, CN II-XII Intact, other ( No focal no or motor weakness is noted) Psychiatric: interacting appropriately ICD10 Worksheet Patient Problems: Problems Problem Status Onset Chest pain Acute Pulmonary edema Acute Chronic renal failure Acute Problem with dialysis access Acute Gallstone Acute Elevated troponin Acute Cholelithiasis Acute Fever Acute Abdominal pain Acute Ascites Acute Ascites Acute
[2016-10-08] MEDS ORDERED: LIDOCAINE 1% *Not for Epidural 20 ML MDV ONE (16:48)
[2016-10-08] MEDS ORDERED: GLUCOSE-INSTA 15 GM TUBE PO PRN (16:51)
[2016-10-08] MEDS: PANTOPRAZOLE SODIUM 40 MG TAB PO SCH (16:58)
[2016-10-08] MEDS: LEVOTHYROXINE 100 MCG TAB PO SCH (16:58)
[2016-10-08] MEDS: CALCIUM ACETATE 667 MG CAP PO SCH ×2 (17:31→18:47)
[2016-10-08] MEDS: ENALAPRILAT DIHYDRATE 1.25 MG/ML VIAL IVP PRN (17:31)
[2016-10-09] MEDS: ENALAPRILAT DIHYDRATE 1.25 MG/ML VIAL IVP PRN (02:20)
[2016-10-09] MEDS: HYDROmorphONE/DILAUDID 1 MG/ML SYR IVP PRN ×2 (02:34→19:32)
[2016-10-09 05:12] LABS: HEMOGLOBIN 11.4 g/dL (12.6-16.3); MEAN CELL HEMOGLOBIN 31.1 pg (27.9-34.1); MEAN CELL HEMOGLOBIN CONCENTR. 34.5 g/dL (32.4-36.7); MEAN CELL VOLUME 90.2 fL (81.5-99.8); RED BLOOD CELL COUNT 3.66 10^6/uL (4.18-5.33); RED CELL DISTRIBUTION WIDTH 13.5 % (11.5-15.2)
[2016-10-09 05:36] LABS: ALBUMIN 2.9 g/dL (3.5-5.0); ANION GAP 11 mEq/L (8-16); CALCIUM 8.5 mg/dL (8.5-10.4); CARBON DIOXIDE 26 mEq/l (22-31); CHLORIDE 98 mEq/L (97-110); CREATININE 4.4 mg/dL (0.6-1.0); GLOMERULAR FILTRATION RATE 10; GLUCOSE 71 mg/dL (70-100); POTASSIUM 4.4 mEq/L (3.5-5.2); SODIUM 135 mEq/L (134-144)
--- NOTE | 2016-10-09 07:35 | SOAPPROG ---
SOAP Progress Note Assessment/Plan: Assessment: ESRD- [facility] TTS -plans for fistulagram on Monday (pulsatile)- NPO after MN -next HD likely monday but will assess daily for need S/p hernia repair- advancing diet as tolerates- needs renal diet when full po Cirrhosis with ascites Anemia of CKD- Hb at goal MBD of CKD- added Ca acetate binder, phos impoved. renal diet when po [facility] pager [phone] 10/09/16 08:33 Subjective: Feels better this am, less abd pain. No sob. Objective: Vital Signs Temp Pulse Resp BP Pulse Ox 37.1 C 66 16 181/67 H 100 10/09/16 07:14 10/09/16 07:14 10/09/16 07:14 10/09/16 07:14 10/09/16 07:14 Laboratory Results 10/09/16 04:35 10/09/16 04:35 10/08/16 10/09/16 10/10/16 05:59 05:59 05:59 Intake Total 200 708 Output Total 90 50 Balance 110 658 PT 15.1 SEC (12.0-15.0) H 10/04/16 20:16 INR 1.19 (0.83-1.16) H 10/04/16 20:16 Physical Exam - Physical Exam General Appearance: no apparent distress, other (looks better today) EENT: other (mmm) Neck: supple Respiratory: lungs clear Cardiac/Chest: regular rate, rhythm Abdomen: other (less tender today) Skin: warm/dry Extremities: other (no edema, LUE AVF pulsatile) Neuro/Psych: alert, oriented x 3 ICD10 Worksheet Patient Problems: Problems Problem Status Onset Ascites Acute Abdominal pain Acute Ascites Acute Chest pain Acute Cholelithiasis Acute Chronic renal failure Acute Elevated troponin Acute Fever Acute Gallstone Acute Problem with dialysis access Acute Pulmonary edema Acute
[2016-10-09] MEDS: LOSARTAN POTASSIUM 50 MG TAB PO SCH (09:14)
[2016-10-09] MEDS: LEVOTHYROXINE 100 MCG TAB PO SCH (09:14)
[2016-10-09] MEDS: oxyCODONE IR 5 MG TAB PO PRN ×2 (09:15→15:14)
[2016-10-09] MEDS: PANTOPRAZOLE SODIUM 40 MG TAB PO SCH (09:15)
[2016-10-09] MEDS: CALCIUM ACETATE 667 MG CAP PO SCH ×3 (09:20→16:48)
--- NOTE | 2016-10-09 11:38 | SOAPPROG ---
SOAP Progress Note Assessment/Plan: Assessment: Patient is a 65-year-old female with history of end-stage renal disease on dialysis, diabetes, new diagnosis cirrhosis. -ventral hernia POD #3 s/p open ventral hernia repair w mesh and paracentesis Pain currently in good control. Ileus * end-stage renal disease Dialysis is on Monday will have fistulagram Monday. Has large pulsative AVF, * anemia secondary to chronic renal disease; s/p PRBC x2 10/06 * hypothyroidism On Synthroid *newly diagnosed cirrhosis/ascites has a f/u appt w GI has normal lft's *DVT prophylaxis: athrombic pumps. has low platelet counts (no LMWH at this time ) Clears - advance slowly as bowel function returns Subjective: Awake. Sitting in chair. No flatus or BM yet. O: Appears well AVF with visible pulse BS hypoactive, Incision cdi, a bit more distended today. MARLEN with serosang fluid 10/09/16 11:37 Objective: Vital Signs Temp Pulse Resp BP Pulse Ox 37.1 C 66 16 181/67 H 100 10/09/16 07:14 10/09/16 07:14 10/09/16 07:14 10/09/16 09:14 10/09/16 07:14 Laboratory Results 10/09/16 04:35 10/09/16 04:35 10/08/16 10/09/16 10/10/16 05:59 05:59 05:59 Intake Total 200 708 Output Total 90 50 Balance 110 658 PT 15.1 SEC (12.0-15.0) H 10/04/16 20:16 INR 1.19 (0.83-1.16) H 10/04/16 20:16 ICD10 Worksheet Patient Problems: Problems Problem Status Onset Ascites Acute Abdominal pain Acute Ascites Acute Chest pain Acute Cholelithiasis Acute Chronic renal failure Acute Elevated troponin Acute Fever Acute Gallstone Acute Problem with dialysis access Acute Pulmonary edema Acute
[2016-10-09] MEDS: hydrALAZINE 20 MG/ML VIAL IVP PRN (14:57)
--- NOTE | 2016-10-09 15:44 | HOSPPROG ---
Hospitalist Progress Note Assessment/Plan: Patient is a 65-year-old female with history of end-stage renal disease on dialysis, diabetes, new diagnosis cirrhosis. She presented emergency room due to sharp abdominal pain to her lower abdomen. s/p hernia repair; POD #3, no flatus. patient is slowly improving postoperatively. post dialysis it is noted the patient's blood pressure continues to be elevated and she is complaining of back pain. She denies complaint of a headache nausea or vomiting -ventral hernia POD #3 s/p open ventral hernia repair w mesh and paracentesis Pain currently in good control. jones drain in place with blood drainage/drsg dry, intact * end-stage renal disease Dialysis is on Monday; Dialysis today. will have fistulagram 10/10. Has large pulsative AVF, * New problem today: blood pressure continues to be difficult to control. She has received her oral antihypertensives and we are now using IV enalapril and IV hydralazine for control of her blood pressure she denies a headache and there are no neurologic symptoms. Will continue to treat with her usual oral medications and intermittent doses of hydralazine and enalapril. * Back pain. This appears to be musculoskeletal. It is an approximately the mid to low thoracic region and was relieved by lying on her side. * anemia secondary to chronic renal disease; s/p PRBC x2 10/06 - SPCM: will follow caloric intake. dietary consult * hypothyroidism On Synthroid *newly diagnosed cirrhosis/ascites has a f/u appt w GI has normal lft's *Diastolic heart failure not in failure *hypothyroidism: Synthroid *DVT prophylaxis: athrombic pumps. has low platelet counts (no LMWH at this time ) Plan: Dialysis today and fistulogram today or on Monday. encourage use of incentive spirometer and out of bed as tolerated. ; dietary consult Diet today is clears per surgery. Subjective: Reports she feels tired but denies having headache chest pain shortness of breath. She has some nausea and continues complain of abdominal pain and has a feeling of distention and fullness she may have move some gas below. Objective: Vital Signs Temp Pulse Resp BP Pulse Ox 36.8 C 67 16 165/59 H 98 10/09/16 14:47 10/09/16 14:47 10/09/16 14:47 10/09/16 14:57 10/09/16 14:47 Laboratory Results 10/09/16 04:35 10/09/16 04:35 10/08/16 10/09/16 10/10/16 05:59 05:59 05:59 Intake Total 200 708 Output Total 90 50 Balance 110 658 PT 15.1 SEC (12.0-15.0) H 10/04/16 20:16 INR 1.19 (0.83-1.16) H 10/04/16 20:16 - Time Spent With Patient Time Spent with Patient: greater than 35 minutes Time Spent with Patient: Greater than 35 minutes spent on this patients care, greater than 50% of time spent counseling, educating, and coordinating care regarding the above mentioned plan. - Pending Discharge Pending Discharge Within 24 Hours: No Pending Discharge Within 48 Hours: No - Physical Exam Constitutional: chronically ill appearing, other ( Appears uncomfortable due to abdominal pain) Eyes: PERRL Ears, Nose, Mouth, Throat: moist mucous membranes Cardiovascular: regular rate and rhythym, no murmur, rub, or gallop, systolic murmur, other ( notes a precordial heave on the chest) Respiratory: no respiratory distress, no rales or rhonchi Gastrointestinal: tenderness ( no guarding or palpable mass. Surgical wound is healing well), distension Genitourinary: no bladder fullness Musculoskeletal: generalized weakness Neurologic: AAOx3, CN II-XII Intact Psychiatric: interacting appropriately ICD10 Worksheet Patient Problems: Problems Problem Status Onset Chest pain Acute Pulmonary edema Acute Chronic renal failure Acute Problem with dialysis access Acute Gallstone Acute Elevated troponin Acute Cholelithiasis Acute Fever Acute Abdominal pain Acute Ascites Acute Ascites Acute
[2016-10-10] MEDS: oxyCODONE IR 5 MG TAB PO PRN ×4 (01:05→20:52)
[2016-10-10] MEDS: HYDROmorphONE/DILAUDID 1 MG/ML SYR IVP PRN ×2 (05:19→08:17)
[2016-10-10] MEDS: ONDANSETRON DISINTEGRATING 4 MG TAB PO PRN ×3 (05:28→20:12)
[2016-10-10 05:29] LABS: HEMATOCRIT 33.4 % (38.0-47.0); HEMOGLOBIN 11.4 g/dL (12.6-16.3); MEAN CELL HEMOGLOBIN 30.7 pg (27.9-34.1); MEAN CELL HEMOGLOBIN CONCENTR. 34.1 g/dL (32.4-36.7); RED BLOOD CELL COUNT 3.71 10^6/uL (4.18-5.33); RED CELL DISTRIBUTION WIDTH 13.5 % (11.5-15.2)
[2016-10-10 05:38] LABS: INR 1.09 (0.83-1.16)
[2016-10-10 05:46] LABS: ALBUMIN 3.1 g/dL (3.5-5.0); ANION GAP 13 mEq/L (8-16); CALCIUM 8.2 mg/dL (8.5-10.4); CARBON DIOXIDE 23 mEq/l (22-31); CHLORIDE 100 mEq/L (97-110); CREATININE 6.2 mg/dL (0.6-1.0); GLOMERULAR FILTRATION RATE 7; GLUCOSE 75 mg/dL (70-100); POTASSIUM 4.4 mEq/L (3.5-5.2); SODIUM 136 mEq/L (134-144)
[2016-10-10] MEDS ORDERED: IOPAMIDOL (ISOVUE-300) 100 ML BTL ONE (09:41)
--- NOTE | 2016-10-10 10:05 | POSTOPPROG ---
Post Op Note Date of Operation: 10/10/16 Surgeon: Ulisses Meehan Anesthesia: IV Sedation Pre-op Diagnosis: Chronic renal failure Post-op Diagnosis: same Indication: Malfunction of LUE AVF Procedure: Balloon angioplasty and stenting of left brachial vein Findings: Stenosis. Perforation of vein after plasty, requiring covered stent Inf/Abcess present in the surg proc area at time of surgery?: No EBL: Minimal Complications: Venous perforation at site of 8mm angioplasty. Perforation was closed with 8mm X 60mm covered flexible stent (Fluency).
[2016-10-10] MEDS: LEVOTHYROXINE 100 MCG TAB PO SCH (11:10)
[2016-10-10] MEDS: LOSARTAN POTASSIUM 50 MG TAB PO SCH (11:10)
[2016-10-10] MEDS: PANTOPRAZOLE SODIUM 40 MG TAB PO SCH (11:11)
[2016-10-10] MEDS: CALCIUM ACETATE 667 MG CAP PO SCH ×3 (12:31→17:28)
--- NOTE | 2016-10-10 12:44 | SOAPPROG ---
SOLUIZA Progress Note Assessment/Plan: Assessment/Plan : The patient is a 65 y/o F with a known h/o ESRD on HD TTS who presented for a hernia repair, now recovering. ESRD- [facility] TTS -fistulagram today>Balloon angioplasty and stenting of left brachial vein -next HD tomorrow S/p hernia repair- advancing diet as tolerates- needs renal diet when full po Cirrhosis with ascites Anemia of CKD- Hb at goal MBD of CKD- added Ca acetate binder, phos impoved. renal diet when po 10/10/16 12:51 Subjective: Patient has no complaints today except fatigue. Had fistulagram this AM. Denies ROS. Objective: Vital Signs Temp Pulse Resp BP Pulse Ox 36.7 C 71 12 150/55 H 100 10/10/16 10:32 10/10/16 10:32 10/10/16 10:32 10/10/16 11:12 10/10/16 10:32 Laboratory Results 10/10/16 04:55 10/10/16 04:55 10/09/16 10/10/16 10/11/16 05:59 05:59 05:59 Intake Total 708 200 Output Total 50 30 Balance 658 170 PT 14.0 SEC (12.0-15.0) 10/10/16 04:55 INR 1.09 (0.83-1.16) 10/10/16 04:55 Physical Exam - Physical Exam General Appearance: alert, no apparent distress EENT: normal ENT inspection Neck: non-tender, full range of motion, supple Respiratory: lungs clear, normal breath sounds Cardiac/Chest: normal peripheral pulses, regular rate, rhythm, systolic murmur Abdomen: normal bowel sounds, soft, other (Mild tenderness over surgical site. No rebound.) Skin: normal color, warm/dry Extremities: normal range of motion, pedal edema Neuro/Psych: no motor/sensory deficits, alert, oriented x 3 ICD10 Worksheet Patient Problems: Problems Problem Status Onset Ascites Acute Abdominal pain Acute Ascites Acute Chest pain Acute Cholelithiasis Acute Chronic renal failure Acute Elevated troponin Acute Fever Acute Gallstone Acute Problem with dialysis access Acute Pulmonary edema Acute
--- NOTE | 2016-10-10 17:17 | HOSPPROG ---
Hospitalist Progress Note Assessment/Plan: Patient is a 65-year-old female with history of end-stage renal disease on dialysis, diabetes, new diagnosis cirrhosis. She presented emergency room due to sharp abdominal pain to her lower abdomen. s/p hernia repair; POD #4, some flatus today. patient is slowly improving postoperatively. post dialysis it is noted the patient's blood pressure continues to be elevated and she is complaining of back pain. She denies complaint of a headache nausea or vomiting -ventral hernia POD #4 s/p open ventral hernia repair w mesh and paracentesis Pain currently in good control. jones drain in place with blood drainage/drsg dry, intact * end-stage renal disease Dialysis is on Monday; fistulagram today>Balloon angioplasty and stenting of left brachial vein * blood pressure continues to be difficult to control. She has received her oral antihypertensives and we are now using IV enalapril and IV hydralazine for control of her blood pressure she denies a headache and there are no neurologic symptoms. Today her blood pressure is in better control. * Back pain. This appears to be musculoskeletal. It is an approximately the mid to low thoracic region and was relieved by lying on her side. * anemia secondary to chronic renal disease; s/p PRBC x2 10/06 - SPCM: will follow caloric intake. dietary consult * hypothyroidism On Synthroid *newly diagnosed cirrhosis/ascites has a f/u appt w GI has normal lft's *Diastolic heart failure not in failure *hypothyroidism: Synthroid *DVT prophylaxis: athrombic pumps. has low platelet counts (no LMWH at this time ) Plan: Dialysis today and fistulogram today or on Monday. encourage use of incentive spirometer and out of bed as tolerated. ; dietary consult Diet today is clears per surgery. Subjective: Reports she continues to have some abdominal pain without nausea or vomiting. Objective: Vital Signs Temp Pulse Resp BP Pulse Ox 36.8 C 76 14 149/65 H 98 10/10/16 16:00 10/10/16 16:00 10/10/16 16:00 10/10/16 16:00 10/10/16 16:00 Laboratory Results 10/10/16 04:55 10/10/16 04:55 10/09/16 10/10/16 10/11/16 05:59 05:59 05:59 Intake Total 708 200 Output Total 50 30 Balance 658 170 PT 14.0 SEC (12.0-15.0) 10/10/16 04:55 INR 1.09 (0.83-1.16) 10/10/16 04:55 - Time Spent With Patient Time Spent with Patient: greater than 35 minutes Time Spent with Patient: Greater than 35 minutes spent on this patients care, greater than 50% of time spent counseling, educating, and coordinating care regarding the above mentioned plan. - Pending Discharge Pending Discharge Within 24 Hours: No Pending Discharge Within 48 Hours: No - Physical Exam Constitutional: no apparent distress, other (Reports some abdominal pain) Eyes: PERRL Ears, Nose, Mouth, Throat: moist mucous membranes, hearing normal Cardiovascular: regular rate and rhythym, systolic murmur Respiratory: no respiratory distress, no rales or rhonchi, clear to auscultation Gastrointestinal: other (Hypoactive to normoactive bowel sounds. She has overall tenderness without a palpable or pulsatile mass surgical wound is healing well without chain drainage the JONES drain is in place with minimal drainage.) Genitourinary: no bladder fullness Skin: warm Musculoskeletal: generalized weakness Neurologic: AAOx3, CN II-XII Intact Psychiatric: interacting appropriately ICD10 Worksheet Patient Problems: Problems Problem Status Onset Chest pain Acute Pulmonary edema Acute Chronic renal failure Acute Problem with dialysis access Acute Gallstone Acute Elevated troponin Acute Cholelithiasis Acute Fever Acute Abdominal pain Acute Ascites Acute Ascites Acute
[2016-10-11] MEDS: hydrALAZINE 20 MG/ML VIAL IVP PRN (04:15)
[2016-10-11] MEDS: oxyCODONE IR 5 MG TAB PO PRN ×3 (07:46→21:45)
[2016-10-11] MEDS: CALCIUM ACETATE 667 MG CAP PO SCH ×3 (08:11→17:03)
[2016-10-11] MEDS: PANTOPRAZOLE SODIUM 40 MG TAB PO SCH (12:03)
[2016-10-11] MEDS: LOSARTAN POTASSIUM 50 MG TAB PO SCH (12:04)
[2016-10-11] MEDS: LEVOTHYROXINE 100 MCG TAB PO SCH (12:05)
--- NOTE | 2016-10-11 14:37 | HOSPPROG ---
Hospitalist Progress Note Assessment/Plan: Patient is a 65-year-old female with history of end-stage renal disease on dialysis, diabetes, new diagnosis cirrhosis. She presented emergency room due to sharp abdominal pain to her lower abdomen. She is now status post open ventral hernia repair. Her recovery has been slow. Has ongoing abdominal pain and recurrent bouts of nausea. * ventral hernia POD #5 s/p open ventral hernia repair w mesh and paracentesis pt c/o pain during my eval jones drain in place with minimal bloo drainage/drsg dry, intact Tolerating clear liquids. She will need to be on a renal diet once eating more * hypertension Blood pressure is 167/79 * end-stage renal disease Dialysis is on Monday She is status post fistulogram with balloon angioplasty and stenting of the left brachial vein * anemia secondary to chronic renal disease Received 2 units of packed red blood cells during this stay *newly diagnosed cirrhosis/ascites has a f/u appt w GI has normal lft's *Diastolic heart failure not in failure *hypothyroidism: Synthroid *DVT prophylaxis: athrombic pumps. has low platelet counts (no LMWH at this time ) Subjective: The patient is complaining of abdominal pain and associated nausea. She describes it as being more surgical pain in her abdomen Objective: Vital Signs Temp Pulse Resp BP Pulse Ox 36.7 C 72 18 167/69 H 100 10/11/16 11:46 10/11/16 11:46 10/11/16 11:46 10/11/16 12:04 10/11/16 11:46 Laboratory Results 10/10/16 04:55 10/10/16 04:55 10/10/16 10/11/16 10/12/16 05:59 05:59 05:59 Intake Total 200 750 Output Total 30 25 Balance 170 725 PT 14.0 SEC (12.0-15.0) 10/10/16 04:55 INR 1.09 (0.83-1.16) 10/10/16 04:55 - Physical Exam Constitutional: chronically ill appearing, uncomfortable, No not in pain Eyes: PERRL Ears, Nose, Mouth, Throat: hearing normal Cardiovascular: regular rate and rhythym Respiratory: no respiratory distress Gastrointestinal: tenderness, No normoactive bowel sounds (Hypoactive bowel sounds) Skin: warm Musculoskeletal: no muscle tenderness, generalized weakness Neurologic: AAOx3 Psychiatric: interacting appropriately, not anxious ICD10 Worksheet Patient Problems: Problems Problem Status Onset Ascites Acute Abdominal pain Acute Ascites Acute Chest pain Acute Cholelithiasis Acute Chronic renal failure Acute Elevated troponin Acute Fever Acute Gallstone Acute Problem with dialysis access Acute Pulmonary edema Acute
--- NOTE | 2016-10-11 15:22 | SOAPPROG ---
THO Progress Note Assessment/Plan: Assessment: ESRD, HD went well post op hernia repair, still some pain today Fistulagram yesterday, ran well today Plan: HD today rest nutrition pain control next HD 10/11/16 15:19 Objective: Vital Signs Temp Pulse Resp BP Pulse Ox 36.7 C 72 18 167/69 H 100 10/11/16 11:46 10/11/16 11:46 10/11/16 11:46 10/11/16 12:04 10/11/16 11:46 Laboratory Results 10/10/16 04:55 10/10/16 04:55 10/10/16 10/11/16 10/12/16 05:59 05:59 05:59 Intake Total 200 750 Output Total 30 25 Balance 170 725 PT 14.0 SEC (12.0-15.0) 10/10/16 04:55 INR 1.09 (0.83-1.16) 10/10/16 04:55 Physical Exam - Physical Exam General Appearance: alert Respiratory: No rhonchi, No wheezing Cardiac/Chest: regular rate, rhythm, edema, No friction rub Abdomen: normal bowel sounds, soft, other (tender post op) Extremities: pedal edema (trace) Neuro/Psych: alert, oriented x 3 ICD10 Worksheet Patient Problems: Problems Problem Status Onset Ascites Acute Abdominal pain Acute Ascites Acute Chest pain Acute Cholelithiasis Acute Chronic renal failure Acute Elevated troponin Acute Fever Acute Gallstone Acute Problem with dialysis access Acute Pulmonary edema Acute
[2016-10-11] MEDS ORDERED: LIDOCAINE 1% *Not for Epidural 20 ML MDV ONE (16:43)
[2016-10-12] MEDS: ONDANSETRON 4 MG/2 ML VIAL IVP PRN (07:55)
--- NOTE | 2016-10-12 08:50 | HOSPPROG ---
Hospitalist Progress Note Assessment/Plan: Patient is a 65-year-old female with history of end-stage renal disease on dialysis, diabetes, new diagnosis cirrhosis. She presented emergency room due to sharp abdominal pain to her lower abdomen. She is now status post open ventral hernia repair. Her recovery has been slow. Has ongoing abdominal pain and recurrent bouts of nausea. * ventral hernia POD #6 s/p open ventral hernia repair w mesh and paracentesis Trial of a renal diet *Nausea and vomiting this morning has bowel sounds will get an abdominal xray to further evaluate suspect she may be constipated/no documented bowel movements the clear liquids are creating more nausea/ trial of toast * hypertension Blood pressure is 149/63 * end-stage renal disease Dialysis is on Monday She is status post fistulogram with balloon angioplasty and stenting of the left brachial vein * anemia secondary to chronic renal disease Received 2 units of packed red blood cells during this stay *newly diagnosed cirrhosis/ascites has a f/u appt w GI has normal lft's *Diastolic heart failure not in failure *hypothyroidism: Synthroid *DVT prophylaxis: athrombic pumps. has low platelet counts (no LMWH at this time ) *Plan: will ask PT and OT to see/ suspect she may need a SNF due to slow recovery Subjective: Annelise is feeling poorly/ had a bout of nausea and emesis this morning. Objective: Vital Signs Temp Pulse Resp BP Pulse Ox 36.6 C 73 16 149/63 H 94 10/12/16 08:00 10/12/16 08:00 10/12/16 08:00 10/12/16 08:00 10/12/16 08:00 Laboratory Results 10/10/16 04:55 10/10/16 04:55 10/11/16 10/12/16 10/13/16 05:59 05:59 05:59 Intake Total 750 650 Output Total 25 20 Balance 725 630 PT 14.0 SEC (12.0-15.0) 10/10/16 04:55 INR 1.09 (0.83-1.16) 10/10/16 04:55 - Physical Exam Constitutional: chronically ill appearing, uncomfortable Eyes: PERRL Ears, Nose, Mouth, Throat: hearing normal Cardiovascular: regular rate and rhythym Respiratory: no respiratory distress Gastrointestinal: normoactive bowel sounds Skin: warm, No normal color (pale) Musculoskeletal: no muscle tenderness Neurologic: AAOx3 Psychiatric: interacting appropriately ICD10 Worksheet Patient Problems: Problems Problem Status Onset Ascites Acute Abdominal pain Acute Ascites Acute Chest pain Acute Cholelithiasis Acute Chronic renal failure Acute Elevated troponin Acute Fever Acute Gallstone Acute Problem with dialysis access Acute Pulmonary edema Acute
[2016-10-12] MEDS: CALCIUM ACETATE 667 MG CAP PO SCH ×3 (09:37→18:43)
[2016-10-12] MEDS ORDERED: BISACODYL 10 MG SUPP PR ONE ×2 (10:22→14:15)
--- NOTE | 2016-10-12 10:53 | SOAPPROG ---
SOAP Progress Note Assessment/Plan: Assessment: 65 yo female POD #6 s/p ventral hernia repair with mesh and paracentesis for newly diagnosed ascites. S/p fistulagram and stenting on 10/10/16, fistula being used for dialysis. S: Patient sitting in chair. Minor abdominal pain with jerky movements. Denies difficulty breathing, N/V. No bowel movements yet. Soft diet, mostly yogurt and JellO. O: Alert, oriented, NAD No increased WOB Bowel sounds present Incision C/D/I MARLEN drain in place with minimal drainage Plan: Remove MARLEN drain today Suppository to help with constipation. Advance to renal diet 10/12/16 10:46 Objective: Vital Signs Temp Pulse Resp BP Pulse Ox 36.6 C 73 16 149/63 H 94 10/12/16 08:00 10/12/16 08:00 10/12/16 08:00 10/12/16 08:00 10/12/16 08:00 Laboratory Results 10/10/16 04:55 10/10/16 04:55 10/11/16 10/12/16 10/13/16 05:59 05:59 05:59 Intake Total 750 650 Output Total 25 20 Balance 725 630 PT 14.0 SEC (12.0-15.0) 10/10/16 04:55 INR 1.09 (0.83-1.16) 10/10/16 04:55 ICD10 Worksheet Patient Problems: Problems Problem Status Onset Ascites Acute Abdominal pain Acute Ascites Acute Chest pain Acute Cholelithiasis Acute Chronic renal failure Acute Elevated troponin Acute Fever Acute Gallstone Acute Problem with dialysis access Acute Pulmonary edema Acute
[2016-10-12] MEDS: LOSARTAN POTASSIUM 50 MG TAB PO SCH (11:29)
[2016-10-12] MEDS: LEVOTHYROXINE 100 MCG TAB PO SCH (11:30)
[2016-10-12] MEDS: PANTOPRAZOLE SODIUM 40 MG TAB PO SCH (11:31)
--- NOTE | 2016-10-12 11:59 | SOAPPROG ---
SOLUIZA Progress Note Assessment/Plan: Assessment: ESRD, HD went well yesterday post op hernia repair, still some pain today, diet advanced today Fistulagram , ran well yesterday Plan: HD tomorrow rest nutrition pain control considering the possibility of SNF to help with rehab 10/11/16 15:19 10/12/16 11:56 Objective: Vital Signs Temp Pulse Resp BP Pulse Ox 36.4 C 70 20 157/71 H 100 10/12/16 11:18 10/12/16 11:18 10/12/16 11:18 10/12/16 11:31 10/12/16 11:18 Laboratory Results 10/10/16 04:55 10/10/16 04:55 10/11/16 10/12/16 10/13/16 05:59 05:59 05:59 Intake Total 750 650 Output Total 25 20 Balance 725 630 PT 14.0 SEC (12.0-15.0) 10/10/16 04:55 INR 1.09 (0.83-1.16) 10/10/16 04:55 Physical Exam - Physical Exam General Appearance: alert, no apparent distress Respiratory: No rales, No rhonchi, No wheezing Cardiac/Chest: regular rate, rhythm, edema, No friction rub Abdomen: normal bowel sounds, No distended, No guarding Skin: warm/dry Extremities: pedal edema, other (good bruit and thrill over AVF, LUE) Neuro/Psych: alert, oriented x 3 ICD10 Worksheet Patient Problems: Problems Problem Status Onset Ascites Acute Abdominal pain Acute Ascites Acute Chest pain Acute Cholelithiasis Acute Chronic renal failure Acute Elevated troponin Acute Fever Acute Gallstone Acute Problem with dialysis access Acute Pulmonary edema Acute
[2016-10-13] MEDS ORDERED: oxyCODONE IR 5 MG TAB PO SCH
[2016-10-13] MEDS: CALCIUM ACETATE 667 MG CAP PO SCH ×2 (07:51→11:40)
[2016-10-13] MEDS: PANTOPRAZOLE SODIUM 40 MG TAB PO SCH (07:51)
--- NOTE | 2016-10-13 11:14 | SOAPPROG ---
THO Progress Note Assessment/Plan: Assessment: ESRD, HD went well today post op hernia repair, pain better today, diet advanced eatingbetter Fistulagram , fistula working well Plan: HD today rest nutrition pain control got up and walked to transport to HD today says she feels better and stronger as well she would like to go home 10/11/16 15:19 10/12/16 11:56 10/13/16 11:09 Subjective: seen on HD no cp sob nausea or vomiting appetite improving spirits good pain much better today Objective: Vital Signs Temp Pulse Resp BP Pulse Ox 36.8 C 72 14 168/61 H 92 10/13/16 04:00 10/13/16 04:00 10/13/16 04:00 10/13/16 04:00 10/13/16 04:00 Laboratory Results 10/10/16 04:55 10/10/16 04:55 10/12/16 10/13/16 10/14/16 05:59 05:59 05:59 Intake Total 650 Output Total 20 Balance 630 PT 14.0 SEC (12.0-15.0) 10/10/16 04:55 INR 1.09 (0.83-1.16) 10/10/16 04:55 Physical Exam - Physical Exam General Appearance: alert Respiratory: No rhonchi, No wheezing Cardiac/Chest: regular rate, rhythm, No edema, No friction rub Abdomen: normal bowel sounds, other (mildly tender today) Extremities: No swelling Neuro/Psych: alert, normal mood/affect, oriented x 3 ICD10 Worksheet Patient Problems: Problems Problem Status Onset Ascites Acute Abdominal pain Acute Ascites Acute Chest pain Acute Cholelithiasis Acute Chronic renal failure Acute Elevated troponin Acute Fever Acute Gallstone Acute Problem with dialysis access Acute Pulmonary edema Acute
[2016-10-13] MEDS: LOSARTAN POTASSIUM 50 MG TAB PO SCH (11:40)
[2016-10-13] MEDS: LEVOTHYROXINE 100 MCG TAB PO SCH (11:40)
[2016-10-13] MEDS: oxyCODONE IR 5 MG TAB PO PRN (11:41)
--- NOTE | 2016-10-13 11:52 | HOSPPROG ---
Hospitalist Progress Note Assessment/Plan: Patient is a 65-year-old female with history of end-stage renal disease on dialysis, diabetes, new diagnosis cirrhosis. She presented emergency room due to sharp abdominal pain to her lower abdomen. She is now status post open ventral hernia repair. Her recovery has been slow. Has ongoing abdominal pain and recurrent bouts of nausea. * ventral hernia POD #7 s/p open ventral hernia repair w mesh and paracentesis Trial of a renal diet *Nausea and vomiting this morning eating today has underlying chronic nausea * hypertension Blood pressure is 150/58 * end-stage renal disease Dialysis is on Monday She is status post fistulogram with balloon angioplasty and stenting of the left brachial vein * anemia secondary to chronic renal disease Received 2 units of packed red blood cells during this stay *newly diagnosed cirrhosis/ascites has a f/u appt w GI has normal lft's *Diastolic heart failure not in failure *hypothyroidism: Synthroid *DVT prophylaxis: athrombic pumps. has low platelet counts (no LMWH at this time ) *Plan: dc home w home care Subjective: Annelise wants to go home/ says she is feeling better and would do better w her own diet at home Objective: Vital Signs Temp Pulse Resp BP Pulse Ox 36.8 C 72 14 150/58 H 92 10/13/16 04:00 10/13/16 04:00 10/13/16 04:00 10/13/16 11:41 10/13/16 04:00 Laboratory Results 10/10/16 04:55 10/10/16 04:55 10/12/16 10/13/16 10/14/16 05:59 05:59 05:59 Intake Total 650 Output Total 20 Balance 630 PT 14.0 SEC (12.0-15.0) 10/10/16 04:55 INR 1.09 (0.83-1.16) 10/10/16 04:55 - Physical Exam Constitutional: chronically ill appearing, uncomfortable Eyes: PERRL Ears, Nose, Mouth, Throat: hearing normal Cardiovascular: regular rate and rhythym Respiratory: no respiratory distress Gastrointestinal: normoactive bowel sounds Skin: warm, other (preethi on abdomen) Musculoskeletal: no muscle tenderness Neurologic: AAOx3 Psychiatric: interacting appropriately, not anxious ICD10 Worksheet Patient Problems: Problems Problem Status Onset Ascites Acute Abdominal pain Acute Ascites Acute Chest pain Acute Cholelithiasis Acute Chronic renal failure Acute Elevated troponin Acute Fever Acute Gallstone Acute Problem with dialysis access Acute Pulmonary edema Acute
[2016-10-13 12:46] VITALS: BP 155/70; PULSE 75; RESP 16; TEMP 98; O2SAT 90
--- NOTE | 2016-10-13 13:56 | PDIAF ---
- Diagnosis Diagnosis: ventral hernia repair, cirrhosis, ESRD Code Status: Full Code - Medication Management Discharge Medications: Medications to Continue on Transfer amLODIPine BESYLATE [Norvasc 10 mg (*)] 10 mg PO DAILY 08/24/15 [Last Taken ] Losartan Potassium [Cozaar 50 mg (*)] 100 mg PO DAILY 09/22/15 [Last Taken 10/03] Levothyroxine [Synthroid 100 mcg (*)] 100 mcg PO DAILY 01/16/16 [Last Taken ] Pantoprazole Sodium [Protonix 40mg (*)] 40 mg PO DAILY 07/04/16 [Last Taken ] Acetaminophen [Tylenol 325mg (*)] 325 mg PO DAILY PRN 07/07/16 [Last Taken 10/03] hydrALAZINE [Apresoline 50 mg (*)] 50 mg PO TID 07/07/16 [Last Taken 10/03/16] oxyCODONE IR [Oxycodone Ir (*)] 5 mg PO Q4 PRN #20 tab 10/13/16 [Last Taken Unknown] Discharge Medications: Refer to the Discharge Home Medication list for PRN reason. - Orders Services needed: Home Care, Registered Nurse, Physical Therapy, Occupational Therapy Home Care Face to Face: I certify that this patient was under my care and that I had the required [id number] encounter meeting the encounter requirements on the discharge day. My findings support the fact that the patient is homebound as defined in CMS Chapter 7 Medicare Benefits Manual 30.1.1, The condition of the patient is such that there exists a normal inability to leave home and consequently, leaving home would require a considerable and taxing effort. Diet Recommendation: potassium restricted Diet Texture: Regular Texture Diet Weigh Patient: daily Activity/Weight Bearing Restrictions: no heavy lifting > 10 lbs Additional: see Dr Thompson next week for f/u care. Iris removed by RN. - Follow Up Care Current Providers and Referrals: Ulisses Thompson MD [Medical Doctor] - HILDA AUGUSTE [Primary Care Provider] - As per Instructions
--- NOTE | 2016-10-13 14:31 | GDS ---
[f rep st] DISCHARGE SUMMARY DISCHARGE DIAGNOSES: 1. Abdominal pain, status post ventral hernia repair. 2. Nausea and vomiting. 3. Hypertension. 4. End-stage renal disease. 5. Anemia, secondary to chronic renal disease. 6. Newly diagnosed cirrhosis with associated ascites. 7. Diastolic heart failure. 8. Hypothyroidism. CONSULTATIONS: During her stay: 1. Dr. Ulisses Thompson. 2. Dr. Fili Cruz. HISTORY: Briefly, the patient is a very sweet 65-year-old female with history of end-stage renal di sease (on dialysis), diabetes, and newly diagnosed cirrhosis, who presented to the emergency room wi th abdominal pain and distention. Prior to this admission, she was admitted and had a paracentesis with 1 L of fluids removed, and she improved. When she went home, she had been feeling poorly. She was seen and evaluated by Dr. Thompson. She was to have her ventral hernia repaired on October 10. Richard robert ended up having surgery sooner because she was already located at the hospital, and on 10/06 she h ad a ventral hernia repair with paracentesis. Her recovery has been slow throughout her stay. She has suffered with bouts of nausea. Also, of note, she received dialysis. There was concern about h er fistula having some stenosis. She had an angiography of her AV fistula with balloon and stenting ; she has tolerated this well. The plan is for her to be discharged home, follow up with the gastro enterologist, follow up with Dr. Thompson, and get dialysis this coming Monday. HOSPITAL COURSE PER PROBLEMS: 1. Ventral hernia repair: She is postop day #7. She also had a paracentesis. She will follow up with Dr. Thompson. 2. Nausea and vomiting: She has had episodes of this. She has chronic nausea. She feels she will do better at home. 3. Hypertension: Blood pressure is 150/58. 4. End-stage renal disease: She will get dialysis Monday. She is status post fistulogram with b alloon angioplasty and stenting of the left brachial vein. 5. Anemia: This is secondary to chronic renal disease. She received 2 units of packed red blood c ells during her stay. 6. Newly diagnosed cirrhosis with associated ascites: Further followup with GI. 7. Diastolic heart failure: Not in failure. 8. Hypothyroidism: On Synthroid. PENDING LABORATORY DATA: None. CONDITION AT DISCHARGE: Stable. Blood pressure is 155/70, heart rate 75, respiratory rate is 16, O 2 sat on room air 90%, temperature 36.6 Celsius. MEDICATIONS AT DISCHARGE: Please see the EMR. DISCHARGE INSTRUCTIONS: 1. Follow up Dr. Thompson. She needs her preethi removed. 2. I am recommending she get some home care because she is overall weak and very fatigued. 3. Take pain medications as prescribed and take a stool softener while on these pain medications. TIME SPENT: Greater than 30 minutes in discharging and coordinating care. /[id number]/MODL
== END 2016-10-13 16:19 | disposition home health service (06) | DRG 353 ==
LOC: F3E 22:24
PROVIDERS: ADMIT Internal Medicine; ATTEND Internal Medicine
DX: K43.9 Ventral hernia without obstruction or gangrene (principal); R18.8 Other ascites; I13.0 Hypertensive heart and chronic kidney disease with heart failure and stage 1 through stage 4 chronic kidney disease, or unspecified chronic kidney disease; N18.6 End stage renal disease; T82.858A Stenosis of other vascular prosthetic devices, implants and grafts, initial encounter; E11.22 Type 2 diabetes mellitus with diabetic chronic kidney disease; I50.30 Unspecified diastolic (congestive) heart failure; K74.60 Unspecified cirrhosis of liver; Z99.2 Dependence on renal dialysis; Z99.81 Dependence on supplemental oxygen; I25.10 Atherosclerotic heart disease of native coronary artery without angina pectoris; Z95.5 Presence of coronary angioplasty implant and graft; G47.30 Sleep apnea, unspecified; D63.1 Anemia in chronic kidney disease
CPT/HCPCS: 96374; 97161-GP; 97165-GO; 97535-GO; C1725; C1769; C1781; C1874; C1894; J0360; J0690; J1100; J1170; J1644; J2405; J2704; J3010; P9016; Q9967

== ENCOUNTER 2016-10-18 10:22 | Inpatient (IN) | payer MEDICAID ==
--- NOTE | 2016-10-18 11:19 | EDPHY ---
H & P Stated Complaint: Abd pain/bloating this morning;hernia repair ~ 2 wks ago - Personal History Current Tetanus Diphtheria and Acellular Pertussis (TDAP): Yes Tetanus Vaccine Date: per previous admission - Medical/Surgical History Hx Asthma: No Hx Chronic Respiratory Disease: No Hx Diabetes: Yes Hx Cardiac Disease: Yes Hx Renal Disease: Yes Hx Cirrhosis: No Hx Alcoholism: No Hx HIV/AIDS: No Hx Splenectomy or Spleen Trauma: No - Social History Smoking Status: Never smoked HPI/ROS: CHIEF COMPLAINT: Abdominal pain, bloating. HISTORY OF PRESENT ILLNESS: This patient is a 65 year old female with multiple medical problems including ESRD and ascites requiring paracentesis, arriving with her daughter complaining of abdominal pain and bloating onset this morning while at dialysis. She was discharged five days ago after recent hernia surgery with Dr. Thompson. This morning, she felt well until she was midway through her dialysis appointment and developed abdominal pain, nausea, and more bloating. She was not able to complete her dialysis due to pain. She has been experiencing abdominal bloating since her discharge, but feels worse today, similar to when she has needed paracentesis in the past. She has not eaten today. She denies fever, vomiting, diarrhea, or other associated symptoms. REVIEW OF SYSTEMS: A ten point review of systems was performed and is negative with the exception of the items mentioned in the HPI. (Michelle Hidalgo) - Medical/Surgical History PMH: 1. Congestive Heart Failure 2. ESRD (dialysis) 3. Hypertension 4. Depression 5. Abdominal and leg cramping during dialysis 6. Pulmonary hypertension 7. Sleep apnea 8. Left arm fistula 9. CAD with stenting 10. Cholecystectomy 11. Ventral hernia repair 12. Cirrhosis with ascites (Michelle Hidalgo) - Social History Additional Social History: Nonsmoker. Daughter at bedside. Lives in [place]. (Michelle Hidalgo) - Physical Exam Exam: General Appearance: Alert. Vital signs reviewed. BP 197/64. Eyes: Pupils equal and round, no conjunctival injection, no discharge. Anicteric. ENT, Mouth: Mucous membranes are moist, no oropharyngeal erythema or edema. Neck: No lymphadenopathy, supple. Respiratory: Lungs are clear to auscultation; no wheezes, rales, or rhonchi. Cardiovascular: Regular rate and rhythm; no murmur, rub, or gallop. Gastrointestinal: Well-healing abdominal incision without warmth or erythema. Surgical preethi in place. Two areas of abdominal ecchymoses. Abdomen is diffusely tender, mildly distended, no guarding or rebound. No fluid wave. Skin: Warm and dry, no rashes on exposed skin, normal color. Back: Nontender to palpation over the thoracolumbar spine. No CVAT. Extremities: Trace lower extremity edema bilaterally. No calf tenderness or swelling. Neurological: Alert and oriented. Moving all four extremities easily and equally. Psychiatric: Normal affect. (Michelle Hidalgo) Constitutional: Initial Vital Signs Temperature (C) 36.4 C 10/18/16 10:25 Heart Rate 63 10/18/16 10:25 Respiratory Rate 18 10/18/16 10:25 Blood Pressure 197/64 H 10/18/16 10:25 O2 Sat (%) 97 10/18/16 10:25 O2 Delivery Mode Room Air Allergies/Adverse Reactions: aspirin Allergy (Severe, Verified 10/18/16 10:28) NSAIDS (Non-Steroidal Anti-Inflamma Allergy (Severe, Verified 10/18/16 10:28) Swelling/neck,face,throat morphine Allergy (Intermediate, Verified 10/18/16 10:28) Home Medications: Medication Instructions Recorded amLODIPine BESYLATE [Norvasc 10 mg 10 mg PO DAILY 08/24/15 (*)] Losartan Potassium [Cozaar 50 mg 100 mg PO DAILY 09/22/15 (*)] Levothyroxine [Synthroid 100 mcg 100 mcg PO DAILY 01/16/16 (*)] Pantoprazole Sodium [Protonix 40mg 40 mg PO DAILY 07/04/16 (*)] Acetaminophen [Tylenol 325mg (*)] 325 mg PO DAILY PRN 07/07/16 hydrALAZINE [Apresoline 50 mg (*)] 50 mg PO TID 07/07/16 oxyCODONE IR [Oxycodone Ir (*)] 5 mg PO Q4 PRN #20 tab 10/13/16 levOFLOXACIN [Levofloxacin] 500 mg PO Q48H #3 tablet 10/19/16 Medical Decision Making - Diagnostics Imaging Results: Ultrasound guided paracentesis yielded 1200 mL of fluid. It is sent for cell count and studies to the lab (Jack Sarmiento) ED Course/Re-evaluation: Re-evaluation at 5:20 p.m.. Patient returns from dialysis. She is feeling much much better and really no abdominal pain now. She is taking oral fluids Review of the ascitic fluid analysis shows a markedly high elevated white blood cell count. It is concerning for spontaneous bacterial peritonitis though the patient also has had recent ventral hernia repair. The patient and I discussed imaging and lab results. We discussed treatment plan including recommendation for admission. She expresses understanding and agreement. Patient is given ceftriaxone 2 g IV I consulted and discussed case with Dr. Harris, hospitalist, who agrees to the admission (Jack Sarmiento) Ultrasound findings reviewed with me by the radiologist. He suspects that perhaps one liter could be drained. I am recommending paracentesis to see if she is more comfortable after this procedure. She is agreeable to this approach and would like to avoid hospitalization. On reexamination her abdomen remains protuberant, but not tense. She has mild to moderate diffuse tenderness , no guarding. I reviewed her laboratory studies. White blood cell count is normal with a slight left shift, 75% neutrophils. Creatinine is elevated, as expected. I have also reviewed her x-ray. She has cardiomegaly but no acute pulmonary disease. She does not appear to be fluid overloaded. She has an appointment with her surgeon, Dr. Thompson, tomorrow. Her care is transferred to Dr. Sarmiento at change of shift, pending paracentesis. Fluid studies have been ordered. Hopefully she will experience relief with paracentesis and fluid studies will be normal/no infection (SBP). Post-operative abscess is a consideration in this setting; she has had two recent abdominal CTs without evidence of abscess formation--will try to avoid another CT unless needed. (Michelle Hidalgo) - Data Points Laboratory Results: Laboratory Results 10/18/16 12:30 10/18/16 12:30 Microbiology Results: MICROBIOLOGY 10/18/16 16:15 Peritoneal Fluid - Aspirate Gram Stain - Final 10/18/16 16:15 Peritoneal Fluid - Aspirate Body Fluid Culture - Preliminary 10/18/16 18:00 Blood Blood Culture - Preliminary Medications Given: Amlodipine Besylate (Norvasc) 10 mg PO DAILY YASMANI Stop: 04/16/17 19:14 Last Admin: 10/20/16 12:06 Dose: 10 mg Calcium Carbonate (Tums) 500 mg PO TID PRN PRN Reason: Indigestion Stop: 04/16/17 21:03 Last Admin: 10/19/16 17:39 Dose: 500 mg Heparin Sodium (Porcine) (Heparin Sc Injection) 5,000 unit SC Q12H YASMANI Stop: 04/16/17 20:44 Last Admin: 10/20/16 20:42 Dose: 5,000 unit Hydralazine HCl (Apresoline) 50 mg PO TID YASMANI Stop: 04/16/17 20:14 Last Admin: 10/20/16 20:41 Dose: 50 mg Ceftriaxone Sodium/Dextrose (Rocephin 1 Gm (Premix)) 50 mls @ 100 mls/hr IV DAILY YASMANI PRN Reason: Protocol Stop: 11/18/16 17:59 Last Admin: 10/20/16 12:07 Dose: 50 mls Insulin Human Lispro (Humalog Lispro) 0 unit SC TIDMEAL YASMANI PRN Reason: Protocol Stop: 04/17/17 07:59 Last Admin: 10/20/16 16:57 Dose: Not Given Levothyroxine Sodium (Synthroid) 100 mcg PO DAILY@0600 [facility] Stop: 04/17/17 08:44 Last Admin: 10/21/16 06:16 Dose: 100 mcg Losartan Potassium (Cozaar) 100 mg PO DAILY [facility] Stop: 04/16/17 19:14 Last Admin: 10/20/16 12:06 Dose: 100 mg Pantoprazole Sodium (Protonix) 40 mg PO DAILY [facility] Stop: 04/16/17 19:14 Last Admin: 10/20/16 12:06 Dose: 40 mg Senna/Docusate Sodium (Senokot-S) 1 - 2 tab PO BID PRN PRN Reason: CONSTIPATION Stop: 04/17/17 21:59 Last Admin: 10/19/16 22:11 Dose: 2 tab Discontinued Medications Ceftriaxone Sodium 2 gm/ (Dextrose) 50 mls @ 100 mls/hr IV EDNOW ONE PRN Reason: Protocol Stop: 10/18/16 18:50 Last Admin: 10/18/16 19:03 Dose: 50 mls Levothyroxine Sodium (Synthroid) 100 mcg PO DAILY [facility] Stop: 04/17/17 08:59 Last Admin: 10/19/16 10:37 Dose: 100 mcg Lorazepam (Ativan) 0.5 mg PO ONCE ONE Stop: 10/21/16 03:01 Last Admin: 10/21/16 03:14 Dose: 0.5 mg Departure - Departure Disposition: [facility] Inpatient Acute Clinical Impression: Spontaneous bacterial peritonitis Ascites Qualifiers: Ascites type: other type Qualified Code(s): R18.8 - Other ascites Condition: Good Report Scribed for: Michelle Hidalgo Report Scribed by: Niya Carmen Date of Report: 10/18/16 Time of Report: 12:54 Physician Review and Approval Statement: 10/18/16 11:19 Portions of this note were transcribed by the medical laboratory technicians. I, Dr. Michelle Hidalgo, personally performed the history, physical exam, and medical decision- making; and confirmed the accuracy of the information in the transcribed note. ( Michelle Hidalgo)
[2016-10-18 12:53] LABS: % IMMATURE GRANULYOCYTES 0.6 % (0.0-1.1); ABSOLUTE IMMATURE GRANULOCYTES 0.03 10^3/uL (0.00-0.10); ADD DIFF? NO; ADD MORPH? NO; ADD SCAN? NO; ATYPICAL LYMPHOCYTE FLAG 10 (0-99); FRAGMENT RBC FLAG 20 (0-99); HEMATOCRIT 37.2 % (38.0-47.0); HEMOGLOBIN 12.4 g/dL (12.6-16.3); LEFT SHIFT FLG 0 (0-99); LIPEMIA HEMOLYSIS FLAG 80 (0-99); MEAN CELL HEMOGLOBIN 30.5 pg (27.9-34.1); MEAN CELL HEMOGLOBIN CONCENTR. 33.3 g/dL (32.4-36.7); MEAN CELL VOLUME 91.4 fL (81.5-99.8); MEAN PLATELET VOLUME 8.7 fL (8.7-11.7); PLATELET CLUMPS FLAG 0 (0-99); PLATELET COUNT 223 10^3/uL (150-400); RED BLOOD CELL COUNT 4.07 10^6/uL (4.18-5.33); RED CELL DISTRIBUTION WIDTH 13.7 % (11.5-15.2)
[2016-10-18 13:00] LABS: ANION GAP 12 mEq/L (8-16); CALCIUM 8.7 mg/dL (8.5-10.4); CARBON DIOXIDE 27 mEq/l (22-31); CHLORIDE 96 mEq/L (97-110); CREATININE 4.1 mg/dL (0.6-1.0); GLOMERULAR FILTRATION RATE 11; GLUCOSE 98 mg/dL (70-100); POTASSIUM 4.2 mEq/L (3.5-5.2); SODIUM 135 mEq/L (134-144)
[2016-10-18 15:19] LABS: INR 1.07 (0.83-1.16); PROTIME(PATIENT) 13.8 SEC (12.0-15.0)
[2016-10-18 15:20] LABS: APTT 38.4 SEC (23.0-38.0)
[2016-10-18] MEDS ORDERED: LIDOCAINE 1% 300 MG/30 ML SDV ONE (15:30)
[2016-10-18] MEDS ORDERED: cefTRIAXone 2 GM in D5W 50 ML IV ONE (18:21)
[2016-10-18 18:42] LABS: LD, PERITONEAL FLUID 359 IU/L
[2016-10-18 18:51] LABS: ALBUMIN 3.4 g/dL (3.5-5.0); BILIRUBIN,TOTAL 0.8 mg/dL (0.1-1.4); BILIRUBIN-CONJUGATED 0.8 mg/dL (0.0-0.5)
[2016-10-18] MEDS ORDERED: ONDANSETRON DISINTEGRATING 4 MG TAB PO PRN (19:05)
[2016-10-18] MEDS ORDERED: ACETAMINOPHEN 325 MG TAB PO PRN (19:05)
[2016-10-18] MEDS ORDERED: oxyCODONE IR 5 MG TAB PO PRN (19:05)
[2016-10-18] MEDS ORDERED: ONDANSETRON 4 MG/2 ML VIAL IVP PRN (19:05)
[2016-10-18] MEDS: LOSARTAN POTASSIUM 50 MG TAB PO SCH (20:20)
[2016-10-18] MEDS: PANTOPRAZOLE SODIUM 40 MG TAB PO SCH (20:20)
[2016-10-18] MEDS ORDERED: LABETALOL HCL 50 MG/10 ML SYR IVP PRN (20:29)
[2016-10-18] MEDS ORDERED: D50W 25 GM/50 ML SYR IVP PRN (20:30)
[2016-10-18] MEDS: HEPARIN 5,000 UNIT/0.5 ML SYR SC SCH (20:59)
[2016-10-18] MEDS ORDERED: FAMOTIDINE 20 MG TAB PO PRN (21:04)
[2016-10-18] MEDS: CALCIUM CARBONATE 500 MG CHEWABLE TAB PO PRN (21:33)
--- NOTE | 2016-10-18 21:35 | GHP ---
[f rep st] HISTORY AND PHYSICAL DATE OF ADMISSION: 10/18/2016 CHIEF COMPLAINT: Abdominal pain. HISTORY OF PRESENT ILLNESS: The patient is a 65-year-old female, with a history of newly diagnosed (suspected) cirrhosis with recurrent ascites, end- stage renal disease, diabetes mellitus, and recent ventral hernia repair, who presents to the emergency department with abdominal pain. She was undergoing outpatient dialysis when she had to stop her dialysis session due to abdominal pain. She was transferred to the emergency department for further evaluation. Upon arrival to the emergency department, she was found to be hypertensive, though afebrile. She recently underwent a ventral hernia repair on October 06. Prior to that, she was diagnosed with suspected cirrhosis and has had recurrent ascites. She initially underwent paracentesis ultrasound September 06, 2016, at which time she had just 73 white cells in her peritoneal fluid. She underwent a repeat paracentesis in the emergency department today, and has a dramatic increase in her white cell count on her peritoneal fluid of over 13,000. Again , she denies fevers or chills. She states she has had intermittent abdominal pain since her ventral hernia repair on October 06. She denies nausea or vomiting. She is having normal bowel movements and tends toward the constipation side since her surgery. She denies chest pain or shortness of breath. She feels overall weak. She is tearful, as she is tired of being hospitalized. She has been seen by a orthodontist small business owner in [place], though has not yet undergone a liver biopsy to confirm a diagnosis of cirrhosis. She denies an alcohol history. She actually feels her abdominal pain has improved since the paracentesis. However, given her abnormal fluid analysis, she is admitted to the hospital due to concern for spontaneous bacterial peritonitis. PAST MEDICAL HISTORY: 1. End-stage renal disease, receiving hemodialysis twice weekly. Last dialyzed today, though this was not completed. 2. Type 2 diabetes mellitus. Diet controlled. 3. History of diastolic heart failure. 4. Abdominal pain with recurrent ascites. 5. Pancytopenia. PAST SURGICAL HISTORY: 1. Ventral hernia repair October 06, 2016. 2. Hysterectomy. 3. Lipoma surgery. 4. AV fistula placement. 5. Cholecystectomy. SOCIAL HISTORY: The patient lives in [place] by herself. Her daughter accompanies her in the emergency department and contributes to the history. She denies alcohol, tobacco, or drug use. FAMILY HISTORY: Her mom had diabetes and of a heart attack. MEDICATIONS: Please see Recite Me for complete updated outpatient medication list. ALLERGIES: Aspirin, NSAIDs, and morphine. REVIEW OF SYSTEMS: A 10-point review of systems was performed and is negative, except as per HPI. PHYSICAL EXAMINATION: VITAL SIGNS: Temperature 36.8, blood pressure 170/45, heart rate 84, respiratory rate is 16. She is 98% on room air. GENERAL: The patient is awake, alert and oriented, is tearful and appears depressed. HEENT: Head is atraumatic, normocephalic. Pupils equal, round, react to light. Extraocular muscles are intact. Oropharynx is clear. Mucous membranes are moist. NECK: Supple. There is no JVD. HEART: Regular rate and rhythm with a 2/6 systolic ejection murmur. LUNGS: Clear to auscultation bilaterally. ABDOMEN: Soft, nondistended. She has some tenderness to palpation on the left side of her abdomen without rebound, rigidity, or guarding. Her midline incision is clean, dry, and intact. There is no erythema or drainage. Normoactive bowel sounds are detected. EXTREMITIES: Reveal 1+ bilateral lower extremity edema. NEUROLOGIC: Grossly nonfocal. LABORATORY DATA: CBC reveals a white count of 4.8, hemoglobin 12.4, platelet count is 223. INR is 1.07. Lactic acid 0.7. A basic metabolic panel is remarkable for a chloride of 96, creatinine of 4.1, blood sugar is 98. LFTs show total bilirubin of 0.8, alkaline phosphatase 158, total protein 6, albumin 3.4. Peritoneal fluid analysis shows a total white blood cell count of 13,658, with 17% neutrophils for a total PMN count of 2321. There are 45% lymphocytes. Protein and glucose are pending. Cytology is sent. Mycobacteria culture is also pending, and a peritoneal fluid culture is pending, along with blood cultures. Chest x-ray performed in the emergency department shows cardiomegaly, which was present on her prior films. There is no acute cardiopulmonary process. Abdominal ultrasound in the emergency department showed a small amount of ascites in all 4 quadrants. Paracentesis ultrasound removed 1200 mL of anastasia ascites with analysis as described above. Abdominal and pelvic CT is currently pending. ASSESSMENT/PLAN: The patient is a 65-year-old female, with a history of end- stage renal disease, diabetes, and recurrent abdominal pain with ascites, possibly secondary to cirrhosis, who presents to the emergency department with abdominal pain. She is admitted to the hospital due to concern for spontaneous bacterial peritonitis. 1. Abdominal pain. There has been a preliminary diagnosis of cirrhosis with recurrent ascites. She underwent paracentesis in the ED. Her peritoneal fluid is concerning for spontaneous bacterial peritonitis with total PMN count of 2300. However, it is a bit unusual she has a lymphocytic shift in this fluid. I sent the fluid for cytology. Culture is pending. I discussed the case with ID, who notes that patients with ESRD have an increased risk of tuberculosis infection, acid-fast bacillus culture is pending. She was given 2 g of intravenous ceftriaxone in the emergency department. We will continue ceftriaxone while we await culture data. I requested a CT scan, which was performed the ED. Results are currently pending. If there is any evidence of pneumoperitoneum or complications from the surgery, would consider broadening her antibiotic. It is reassuring that she is afebrile, has a normal white count , a normal lactate, and does not present with systemic inflammatory response syndrome criteria. 2. End-stage renal disease. She has no acute dialysis needs. I discussed the case with the on-call policy writer sales, and they will consult tomorrow, to provide ongoing hemodialysis. 3. Recurrent ascites. This may be related to volume-overload with her ESRD. There has been some suspicion for cirrhosis, though I reviewed her prior imaging , which does not necessarily suggest this. In addition, she has had relatively normal liver function tests. Infectious workup is pending, as above. Cytology is also pending. Consider GI consult to discuss pursuing a liver biopsy. However, I would defer this for now until we have clarified her infectious status, as I would not want to proceed with a procedure in the setting of active spontaneous bacterial peritonitis. Outpt GI f/u may be appropriate. 4. Status post ventral hernia repair, postoperative day 12. Again, she is afebrile. Her incision looks good. She is supposed to have followup with Dr. Thompson tomorrow for staple removal. He was informed of her admission and will review her CT scan. 5. Diabetes mellitus type 2. She presents with a blood sugar of 98. She has been diet-controlled in the outpatient setting. We will provide p.r.n. sliding scale insulin if needed. 6. Hypertension. She was quite hypertensive on arrival, but she has not had any of her outpatient antihypertensive doses today. Her medication reconciliation is completed, and she will receive her amlodipine, hydralazine, and losartan. We will provide p.r.n. labetalol if needed. 7. Diastolic heart failure. I reviewed her echocardiogram from June 2016, which showed a normal ejection fraction of 70% to 75%, with Doppler evidence for diastolic dysfunction. She is slightly volume-overloaded on arrival. As above, renal consult for fluid removal via hemodialysis. 8. History of cardiac tamponade requiring thoracotomy. I do note cardiomegaly on her chest x-ray, though this has been present on prior films, and does not seem significantly changed. She has no chest pain, shortness of breath, or dizziness to suggest acute tamponade. We will continue close monitoring and consider repeat echocardiogram should she become symptomatic. 9. Deep venous thrombosis prophylaxis. Patient is high risk. We will start subcutaneous heparin. CODE STATUS: The patient wishes to be DNR. This will be honored. DISPOSITION: Patient has been admitted to inpatient status. I suspect she will require greater than 48 hours of hospitalization for ongoing management of her abdominal pain and possible spontaneous bacterial peritonitis. /[id number]/MODL MTDD
[2016-10-18] MEDS ORDERED: HEPARIN 5,000 UNIT/0.5 ML SYR SC SCH (22:00)
[2016-10-19 05:57] LABS: % IMMATURE GRANULYOCYTES 0.4 % (0.0-1.1); ABSOLUTE IMMATURE GRANULOCYTES 0.02 10^3/uL (0.00-0.10); ADD DIFF? NO; ADD MORPH? NO; ADD SCAN? NO; ATYPICAL LYMPHOCYTE FLAG 10 (0-99); FRAGMENT RBC FLAG 0 (0-99); HEMATOCRIT 39.7 % (38.0-47.0); HEMOGLOBIN 13.3 g/dL (12.6-16.3); LEFT SHIFT FLG 0 (0-99); LIPEMIA HEMOLYSIS FLAG 80 (0-99); MEAN CELL HEMOGLOBIN 30.5 pg (27.9-34.1); MEAN CELL HEMOGLOBIN CONCENTR. 33.5 g/dL (32.4-36.7); MEAN CELL VOLUME 91.1 fL (81.5-99.8); MEAN PLATELET VOLUME 8.8 fL (8.7-11.7); PLATELET CLUMPS FLAG 0 (0-99); PLATELET COUNT 191 10^3/uL (150-400); RED BLOOD CELL COUNT 4.36 10^6/uL (4.18-5.33); RED CELL DISTRIBUTION WIDTH 13.5 % (11.5-15.2)
[2016-10-19 06:07] LABS: ALANINE AMINOTRANSFERASE 18 IU/L (9-52); ALBUMIN 3.1 g/dL (3.5-5.0); ALKALINE PHOSPHATASE 151 IU/L (38-126); ANION GAP 9 mEq/L (8-16); ASPARTATE AMINOTRANSFERASE 24 IU/L (14-46); BILIRUBIN,TOTAL 0.7 mg/dL (0.1-1.4); CARBON DIOXIDE 26 mEq/l (22-31); CHLORIDE 97 mEq/L (97-110); CREATININE 5.4 mg/dL (0.6-1.0); GLOMERULAR FILTRATION RATE 8; GLUCOSE 103 mg/dL (70-100); POTASSIUM 4.7 mEq/L (3.5-5.2); SODIUM 132 mEq/L (134-144); TOTAL PROTEIN 5.7 g/dL (6.3-8.2)
[2016-10-19] MEDS: INSULIN LISPRO 100 UNIT/ML SC SCH ×3 (08:01→17:32)
[2016-10-19] MEDS: PANTOPRAZOLE SODIUM 40 MG TAB PO SCH (08:40)
[2016-10-19] MEDS: HEPARIN 5,000 UNIT/0.5 ML SYR SC SCH ×2 (08:41→22:11)
[2016-10-19] MEDS: LOSARTAN POTASSIUM 50 MG TAB PO SCH (08:41)
[2016-10-19] MEDS ORDERED: LEVOTHYROXINE 100 MCG TAB PO SCH (09:00)
[2016-10-19] MEDS: LEVOTHYROXINE 100 MCG TAB PO SCH (10:38)
--- NOTE | 2016-10-19 11:00 | SOAPPROG ---
SOAP Progress Note Assessment/Plan: Assessment/Plan: 65 Y F admit with abdominal pain. recently diagnosed cirrhosis , etiology unknown at this time, s/p paracentesis. VH repair last visit. AVF stent last visit. Hernia repair intact. Remove preethi. AVF working well, continue HD. Has appt c GI in [place] 10/25. Dispo: per medicine. F/u with us in one month. Will cancel today's scheduled office appt. S: Feels much better after paracentesis. Breathing and swallowing more easily now. No bleeding at HD since AVF stent. O: alert, nad avf with steady thrill abd soft, VH repair intact, inc cdi c preethi, no erythema. 10/19/16 10:55 Objective: Vital Signs Temp Pulse Resp BP Pulse Ox 37.1 C 68 16 136/86 H 97 10/19/16 07:38 10/19/16 07:38 10/19/16 07:38 10/19/16 08:41 10/19/16 07:38 Laboratory Results 10/19/16 05:18 10/19/16 05:18 10/18/16 10/19/16 10/20/16 05:59 05:59 05:59 Intake Total 350 Balance 350 PT 13.8 SEC (12.0-15.0) 10/18/16 12:45 INR 1.07 (0.83-1.16) 10/18/16 12:45 ICD10 Worksheet Patient Problems: Problems Problem Status Onset Ascites Acute Spontaneous bacterial peritonitis Acute Abdominal pain Acute Ascites Acute Ascites Acute Chest pain Acute Cholelithiasis Acute Chronic renal failure Acute Elevated troponin Acute Fever Acute Gallstone Acute Problem with dialysis access Acute Pulmonary edema Acute
--- NOTE | 2016-10-19 15:41 | GCON ---
[f rep st] CONSULTATION NEPHROLOGY CONSULTATION DATE OF CONSULTATION: 10/19/2016 REASON FOR CONSULTATION: Opinion regarding end-stage kidney failure. HISTORY OF PRESENT ILLNESS: The patient is a very pleasant, 65-year-old female with end-stage kidne y failure on [id number] hemodialysis at [facility]. She was on dialysis yesterday and began havin g abdominal discomfort and fullness. She stopped about shelter through her dialysis treatment and w as taken to the Emergency Department at [facility]. In the Emergency Department, randolph robert was noted to have ascites which is relatively new for the patient. She has a new diagnosis of cir rhosis. She recently also had an abdominal ventral hernia repaired. A large-volume paracentesis wa s done, white blood cell count on that fluid was 13,658, 45% were lymphocytes and about 17% were seg mental neutrophils. She was admitted to the hospital, given intravenous antibiotics in the form of Rocephin. The patient said she had not been having fevers, chills. She did have some nausea, no vo miting. No chest pain. She did have some shortness of breath because she did not feel like she cou ld move her diaphragm against the ascitic fluid. No cough, sputum, hemoptysis, hematemesis, epistax is, diarrhea or constipation, melena, hematochezia, headache, or syncope. PAST MEDICAL HISTORY: Significant for: 1. End-stage kidney failure due to diabetes and hypertension. 2. Diabetes mellitus type 2. 3. Hypertension. 4. Cirrhosis. 5. Diastolic heart failure. 6. Recent ventral hernia repair. 7. History of cardiac tamponade status post thoracotomy. 8. Hypothyroidism. ALLERGIES: Nonsteroidal anti-inflammatory drugs, morphine, and aspirin. MEDICATIONS: Current medications include: 1. Norvasc 10 mg a day. 2. Rocephin 1 g a day. 3. Pepcid 20 mg a day. 4. Oxy IR 5-10 mg every 3 hours. 5. Protonix 40 mg a day. 6. Losartan 100 mg daily. 7. Synthroid 100 mcg daily. 8. Hydralazine. 9. Insulin. REVIEW OF SYSTEMS: A complete 12-point review of systems was performed. Pertinent positives and ne gatives as per the previous sections. PHYSICAL EXAMINATION: VITAL SIGNS: Blood pressure 136/86, pulse 68, respirations 16, temperature 3 7.1, weight 66 kg. GENERAL: She is awake, alert, cooperative, and is in no acute distress. She wa s seen on dialysis. HEENT: Pupils are reactive to light. Extraocular movements are intact. Mucou s membranes are moist. NECK: Lymphadenopathy or thyromegaly. HEART: Regular. A grade 2/6 systol ic murmur. No rub. No S3. LUNGS: Occasional rales in her bases. No rhonchi or wheezes. ABDOMEN : Bowel sounds are positive. Mildly distended. Mildly tender. No obvious organomegaly. EXTREMIT IES: Trace edema. No cyanosis or clubbing. NEUROLOGIC: No asterixis. SKIN: She has healing ecc hymoses on the lower extremities bilaterally. LYMPHATICS: No palpable lymphadenopathy. MUSCULOSKE LETAL: No effusions or tenderness. LABORATORY: WBCs 5, hemoglobin 13.3, hematocrit 40, platelet count 191,000. Serum sodium 132, pota ssium 4.7, chloride 97, CO2 26, BUN 23, creatinine 5.4, glucose 103. Calcium 9, AST 24, albumin 3.1 . Peritoneal fluid culture is pending. Cytology is pending. IMPRESSION: 1. End-stage kidney failure on 9-grbyw-nhijvw hemodialysis. 2. Abdominal discomfort and ascitic fluid with 13,658 WBCs, possible spontaneous bacterial peritoni tis, although it is primarily lymphocytes. 3. Diabetes. 4. Hypertension. RECOMMENDATIONS: 1. We will plan on doing dialysis today, dialysis again tomorrow. 2. Antibiotics as necessary for her SBP. 3. Pain management as is necessary. 4. Continue her current medications otherwise. Thank you for allowing me to participate in the care of your patient. If there are any questions, josee meyers do not hesitate to contact me. I will be following along with you. /[id number]/MODL
--- NOTE | 2016-10-19 16:10 | HOSPPROG ---
Hospitalist Progress Note Assessment/Plan: Assessment: 65-year-old female presents with acute on chronic abdominal pain in the setting of possible spontaneous bacterial peritonitis Plan: 1. Possible SBP. Evidenced by 13,000 white blood cells in her ascitic fluid, negative Gram stain, associated abdominal pain, significant elevation in ascitic white blood cell count since her study from 09/06/2016 (outside paracentesis records reviewed) -day to IV ceftriaxone, continue -abdominal tenderness improving -discussed with Dr. Pam Bridges, we agreed that patient's lymphocyte predominance is unusual and may be more indicative of intra-abdominal malignancy , but that being said, the patient's ascitic white blood cell count is elevated and she did have abdominal pain, and she is high risk for SBP, so will continue IV antibiotics at this time -given the lymphocyte predominance end-stage renal disease, the patient did have an AFB, which is currently pending 2. Possible Gram-positive cocci bacteremia. Micro growing Gram-positive cocci , preliminary results, 1/2 bottles, unclear whether this is contaminant versus evidence of underlying systemic infection -unsafe for patient to be discharged home in the setting of above, monitor blood culture results for final speciation -get formal infectious disease consultation -hold on antibiotic adjustments at this time 3. End-stage renal disease. I suspect the patient's ascites may be related to her end-stage renal disease and fluid accumulation -she is being dialyzed today, dialyzed tomorrow, continue on Monday schedule thereafter -appreciate renal consultation -recommended the patient have increased volume removal at her outpatient dialysis center to gauge whether this affects her ascites 4. Ascites. Chronic, unclear whether the patient truly has an underlying diagnosis of cirrhosis, reviewed outside records including 09/06/2016 CT scan demonstrating nodular, heterogenous liver which could be interpreted as cirrhosis in the setting of ascites, but she has not had a liver biopsy -abdominal discomfort significantly improved after 1.2 L paracentesis -recommend that she follow up closely with her outpatient advertising dispatch clerk, Dr. Esparaz, with potential liver biopsy in the future to elucidate the underlying diagnosis -monitor liver panel, monitor synthetic function -discussed with the general surgery service, they did not note any cirrhotic appearance of liver although the liver was not a particular well visualized on her recent hernia repair 5. Chronic diastolic congestive heart failure. No evidence of acute exacerbation, monitor for evidence of decompensation -no clinical evidence of tamponade 6. Hyponatremia. Acute, secondary to end-stage renal disease, continue to monitor Diet. Renal Prophylaxis. High risk patient, heparin subcu Code. Do not resuscitate Disposition. Anticipated discharge is uncertain this time, requires ongoing hospitalization for possible Staph bacteremia. Subjective: Patient reports that her abdominal discomfort is significantly improved Objective: Vital Signs Temp Pulse Resp BP Pulse Ox 36.8 C 63 16 135/72 H 96 10/19/16 11:34 10/19/16 11:34 10/19/16 11:34 10/19/16 11:34 10/19/16 11:34 Laboratory Results 10/19/16 05:18 10/19/16 05:18 10/18/16 10/19/16 10/20/16 05:59 05:59 05:59 Intake Total 350 Balance 350 PT 13.8 SEC (12.0-15.0) 10/18/16 12:45 INR 1.07 (0.83-1.16) 10/18/16 12:45 - Physical Exam Constitutional: no apparent distress, not in pain, chronically ill appearing, No uncomfortable Cardiovascular: regular rate and rhythym, systolic murmur (1/6 at the sternum and apex), No irregularly irregular, No edema Respiratory: no respiratory distress, no rales or rhonchi, clear to auscultation Gastrointestinal: normoactive bowel sounds, ascites, distension (Very mild), No tenderness, No guarding Skin: other (Well healing surgical incision site, some surrounding ecchymoses, nodular nontender fluid pocket under the surgical site without any surrounding erythema) Neurologic: AAOx3, sensation intact bilaterally Psychiatric: interacting appropriately, not anxious, not encephalopathic, thought process linear ICD10 Worksheet Patient Problems: Problems Problem Status Onset Chest pain Acute Pulmonary edema Acute Chronic renal failure Acute Problem with dialysis access Acute Gallstone Acute Elevated troponin Acute Cholelithiasis Acute Fever Acute Abdominal pain Acute Ascites Acute Ascites Acute Ascites Acute Spontaneous bacterial peritonitis Acute
[2016-10-19] MEDS ORDERED: LIDOCAINE 1% *Not for Epidural 20 ML MDV ONE (17:13)
[2016-10-19] MEDS: CALCIUM CARBONATE 500 MG CHEWABLE TAB PO PRN (17:39)
[2016-10-19] MEDS ORDERED: SENNOSIDES 1 TAB PO PRN (21:40)
[2016-10-19] MEDS ORDERED: SENNOSIDES/DOCUSATE SODIUM TAB PO PRN (22:00)
[2016-10-20 05:17] LABS: % IMMATURE GRANULYOCYTES 0.5 % (0.0-1.1); ABSOLUTE IMMATURE GRANULOCYTES 0.02 10^3/uL (0.00-0.10); ADD DIFF? NO; ADD MORPH? NO; ADD SCAN? NO; ATYPICAL LYMPHOCYTE FLAG 10 (0-99); FRAGMENT RBC FLAG 0 (0-99); HEMATOCRIT 37.5 % (38.0-47.0); HEMOGLOBIN 12.7 g/dL (12.6-16.3); LEFT SHIFT FLG 0 (0-99); LIPEMIA HEMOLYSIS FLAG 90 (0-99); MEAN CELL HEMOGLOBIN 30.9 pg (27.9-34.1); MEAN CELL HEMOGLOBIN CONCENTR. 33.9 g/dL (32.4-36.7); MEAN CELL VOLUME 91.2 fL (81.5-99.8); MEAN PLATELET VOLUME 8.8 fL (8.7-11.7); PLATELET CLUMPS FLAG 10 (0-99); PLATELET COUNT 166 10^3/uL (150-400); RED BLOOD CELL COUNT 4.11 10^6/uL (4.18-5.33); RED CELL DISTRIBUTION WIDTH 13.6 % (11.5-15.2)
[2016-10-20 05:26] LABS: INR 1.09 (0.83-1.16)
[2016-10-20 05:27] LABS: ALANINE AMINOTRANSFERASE 19 IU/L (9-52); ALBUMIN 2.9 g/dL (3.5-5.0); ALKALINE PHOSPHATASE 142 IU/L (38-126); ANION GAP 9 mEq/L (8-16); ASPARTATE AMINOTRANSFERASE 22 IU/L (14-46); BILIRUBIN,TOTAL 0.6 mg/dL (0.1-1.4); CALCIUM 8.8 mg/dL (8.5-10.4); CARBON DIOXIDE 28 mEq/l (22-31); CHLORIDE 95 mEq/L (97-110); GLOMERULAR FILTRATION RATE 9; GLUCOSE 86 mg/dL (70-100); POTASSIUM 4.2 mEq/L (3.5-5.2); SODIUM 132 mEq/L (134-144); TOTAL PROTEIN 5.4 g/dL (6.3-8.2)
[2016-10-20] MEDS: LEVOTHYROXINE 100 MCG TAB PO SCH (06:06)
--- NOTE | 2016-10-20 10:19 | SOAPPROG ---
SOAP Progress Note Assessment/Plan: Assessment: SBP ESRD Plan: HD today ABX per hospitalists will likely need scheduled outpatient paracentesis primarily for comfort measures 10/20/16 10:16 Subjective: seen on HD feels some better today no cp sob nausea or vomiting belly feels better today Objective: Vital Signs Temp Pulse Resp BP Pulse Ox 36.6 C 69 16 116/50 L 96 10/20/16 03:40 10/20/16 03:40 10/20/16 03:40 10/20/16 03:40 10/20/16 03:40 Microbiology 10/18/16 18:36 Blood Panel (PCR) - Final Blood S.aureus Methicillin Suscept. Laboratory Results 10/20/16 05:03 10/20/16 05:03 10/19/16 10/20/16 10/21/16 05:59 05:59 05:59 Intake Total 350 600 Balance 350 600 PT 14.0 SEC (12.0-15.0) 10/20/16 05:03 INR 1.09 (0.83-1.16) 10/20/16 05:03 Physical Exam - Physical Exam General Appearance: alert Respiratory: No rhonchi, No wheezing Cardiac/Chest: regular rate, rhythm, edema, No friction rub Abdomen: normal bowel sounds, distended Skin: warm/dry Neuro/Psych: alert, normal mood/affect, oriented x 3 ICD10 Worksheet Patient Problems: Problems Problem Status Onset Ascites Acute Spontaneous bacterial peritonitis Acute Abdominal pain Acute Ascites Acute Ascites Acute Chest pain Acute Cholelithiasis Acute Chronic renal failure Acute Elevated troponin Acute Fever Acute Gallstone Acute Problem with dialysis access Acute Pulmonary edema Acute
[2016-10-20] MEDS: INSULIN LISPRO 100 UNIT/ML SC SCH ×3 (11:57→16:57)
[2016-10-20] MEDS: PANTOPRAZOLE SODIUM 40 MG TAB PO SCH (12:06)
[2016-10-20] MEDS: LOSARTAN POTASSIUM 50 MG TAB PO SCH (12:06)
[2016-10-20] MEDS: HEPARIN 5,000 UNIT/0.5 ML SYR SC SCH ×2 (12:06→20:42)
--- NOTE | 2016-10-20 17:37 | HOSPPROG ---
Hospitalist Progress Note Assessment/Plan: Assessment: 65-year-old female presents with acute on chronic abdominal pain in the setting of possible spontaneous bacterial peritonitis Plan: 1. Possible SBP. Evidenced by 13,000 white blood cells in her ascitic fluid, negative Gram stain, associated abdominal pain, significant elevation in ascitic white blood cell count since her study from 09/06/2016 (outside paracentesis records reviewed) -day 3 IV ceftriaxone, continue -abdominal tenderness improved 2. Possible MSSA bacteremia. 1/2 positive, d/w Dr. Bullock, recs repeat BCx and continue CTX -unsafe for patient to be discharged home in the setting of above, monitor blood culture results for final speciation 3. End-stage renal disease. I suspect the patient's ascites may be related to her end-stage renal disease and fluid accumulation -she has been dialyzed twice, continue on Monday schedule thereafter -appreciate renal consultation -recommended the patient have increased volume removal at her outpatient dialysis center to gauge whether this affects her ascites 4. Ascites. Chronic, unclear whether the patient truly has an underlying diagnosis of cirrhosis, reviewed outside records including 09/06/2016 CT scan demonstrating nodular, heterogenous liver which could be interpreted as cirrhosis in the setting of ascites, but she has not had a liver biopsy -agree w/ renal recs to have outpt gurinder planned to palliate -recommend close outpt f/u Dr. Esparza 5. Chronic diastolic congestive heart failure. No evidence of acute exacerbation, monitor for evidence of decompensation -no clinical evidence of tamponade 6. Hyponatremia. Acute, secondary to end-stage renal disease, continue to monitor Diet. Renal Prophylaxis. High risk patient, heparin subcu Code. Do not resuscitate Disposition. Anticipated discharge is uncertain this time, requires ongoing hospitalization for possible Staph bacteremia. Subjective: patient's physical activity increasing Objective: Vital Signs Temp Pulse Resp BP Pulse Ox 36.8 C 73 20 141/62 H 99 10/20/16 15:42 10/20/16 15:42 10/20/16 15:42 10/20/16 15:42 10/20/16 15:42 Microbiology 10/18/16 18:36 Blood Panel (PCR) - Final Blood S.aureus Methicillin Suscept. Laboratory Results 10/20/16 05:03 10/20/16 05:03 10/19/16 10/20/16 10/21/16 05:59 05:59 05:59 Intake Total 350 600 Balance 350 600 PT 14.0 SEC (12.0-15.0) 10/20/16 05:03 INR 1.09 (0.83-1.16) 10/20/16 05:03 - Physical Exam Constitutional: no apparent distress, not in pain, chronically ill appearing, No uncomfortable Cardiovascular: systolic murmur (III/ at sternum, late III/ LSB), No irregularly irregular, No tachycardia, No edema Respiratory: no respiratory distress, no rales or rhonchi, clear to auscultation Gastrointestinal: normoactive bowel sounds, ascites, No tenderness, No distension Skin: other (non-tender fluctuance at surg site w/ ecchymoses, no erythema) Neurologic: AAOx3, sensation intact bilaterally Psychiatric: interacting appropriately, not anxious, not encephalopathic, thought process linear ICD10 Worksheet Patient Problems: Problems Problem Status Onset Chest pain Acute Pulmonary edema Acute Chronic renal failure Acute Problem with dialysis access Acute Gallstone Acute Elevated troponin Acute Cholelithiasis Acute Fever Acute Abdominal pain Acute Ascites Acute Ascites Acute Ascites Acute Spontaneous bacterial peritonitis Acute
--- NOTE | 2016-10-21 00:45 | GCON ---
[f rep st] CONSULTATION REFERRING PHYSICIAN: Daljit Herrmann MD REASON FOR REFERRAL: Staph aureus bacteremia and peritonitis. HISTORY OF PRESENT ILLNESS: Patient is a 65-year-old female with end-stage kidney disease on hemodi alysis, with at least a moderate degree of liver disease, who presented to [facility] Emergency Room on 10/18/16, complaining of abdominal pain and bloating. She had undergone a hernia repair 2 weeks prior. The patient was seen in the emergency room and felt to present with possible case of spontaneous bacterial peritonitis. She underwent a paracentesis in the afternoon of 7. She was started empirically on ceftriaxone. Blood cultures were drawn. She was afebrile throug hout her stay so far. Her initial laboratory values were not significantly revealing apart from the cell count from her peritoneal fluid. That cell count revealed high total white cells of 13,658; h owever, the distribution showed a significant preponderance of lymphocytes. Neutrophil percentage o f that was 17. Regardless, patient was admitted and begun treatment empirically on ceftriaxone. Richard robert feels improved today clinically. She attributes most of this to the fluid removed during the para centesis 2 days ago. We are consulted to help guide diagnosis and treatment. PAST MEDICAL HISTORY: 1. End-stage renal disease. 2. Type 2 diabetes mellitus. 3. Diastolic heart failure. 4. Recurrent ascites. 5. Pancytopenia. PAST SURGICAL HISTORY: 1. Status post ventral hernia repair, October 06 of this year. 2. Status post hysterectomy. 3. Status post lipoma removal. 4. Status post AV fistula placement. 5. Status post cholecystectomy. ANTIBIOTICS: Ceftriaxone. ALLERGIES: To NSAIDs, aspirin, morphine. SOCIAL HISTORY: Patient is a resident of [place]. She has a supportive family. No alcohol, tobac co or drug use is noted. FAMILY HISTORY: Positive for diabetes and coronary artery disease. REVIEW OF SYSTEMS: Other than that detailed above in History of Present Illness, a comprehensive 10 -system review is negative. PHYSICAL EXAMINATION: VITAL SIGNS: Temperature maximum is 37.1, temperature current is 36.8; heart rate is 73; respiratory rate is 20; blood pressure is 141/62. GENERAL: The patient is a well-form ed, well-nourished older female, in no acute distress. She is not toxic in appearance. She is aler t and oriented x3. She has a pleasant demeanor. HEENT: Normocephalic for age. Atraumatic. No sc leral icterus. No oral lesion. No drainage from the nares. Eyes: Lids and conjunctivae are withi n normal limits. Pupils are equal and round bilaterally. NECK: Supple. No meningismus. LUNGS: Clear to auscultation bilaterally with good effort. HEART: Regular rate and rhythm. No murmur, ru b, or gallop noted. No significant pedal edema noted. ABDOMEN: Soft, but distended. Mildly tende r globally. No masses. SKIN: Warm and dry to the touch. No rash or lesion. MUSCULOSKELETAL: No muscle tenderness is noted. No joint line effusion or arthritis is seen. NEURO: Cranial nerves 2 -12 seem to be intact. Peripheral sensation seems intact in extremities. LABORATORY DATA: Patient has a CBC dated 10/20/16, shows a white blood cell count of 4.35, hemoglob in of 12.7, hematocrit of 37.5, and a platelet count of 166. Differential is within normal limits. Serum chemistries on 10/20/16, show sodium of 132, potassium 4.2, chloride of 95, bicarbonate of 28 , BUN of 18, and creatinine of 5.0. AST is 22, ALT is 19. Peritoneal fluid sample, dated 10/18/16, shows 13,658 white blood cells, with 456 red blood cells; 17% of the white cells are neutrophils, 3 3% are macrophages, and 45% are lymphocytes. MICROBIOLOGIC DATA: The patient has blood cultures dated 10/18/16: 1 out of 2 is growing gram-posi tive cocci in clusters. Blood panel PCR reveals this to be methicillin-susceptible Staph aureus. P eritoneal fluid Gram stain is negative. No growth in culture at 48 hours. AFB stain is also negati ve. Culture is pending. ASSESSMENT: Staph aureus bacteremia. She is covered with the ceftriaxone. I am not going to henley e that coverage now until we rule out that the cellularity of the ascitic fluid is not reflective of a secondary infectious process. PLAN: 1. Continue ceftriaxone monotherapy. 2. Repeat blood cultures. 3. Follow clinical course. /[id number]/MODL
[2016-10-21] MEDS ORDERED: LORazepam 0.5 MG TAB PO ONE (03:00)
[2016-10-21 05:37] LABS: % IMMATURE GRANULYOCYTES 0.5 % (0.0-1.1); ABSOLUTE IMMATURE GRANULOCYTES 0.02 10^3/uL (0.00-0.10); ADD DIFF? NO; ADD MORPH? NO; ADD SCAN? NO; ATYPICAL LYMPHOCYTE FLAG 20 (0-99); FRAGMENT RBC FLAG 0 (0-99); HEMATOCRIT 37.2 % (38.0-47.0); HEMOGLOBIN 12.4 g/dL (12.6-16.3); LEFT SHIFT FLG 0 (0-99); LIPEMIA HEMOLYSIS FLAG 80 (0-99); MEAN CELL HEMOGLOBIN 30.6 pg (27.9-34.1); MEAN CELL HEMOGLOBIN CONCENTR. 33.3 g/dL (32.4-36.7); MEAN CELL VOLUME 91.9 fL (81.5-99.8); MEAN PLATELET VOLUME 8.8 fL (8.7-11.7); PLATELET CLUMPS FLAG 0 (0-99); PLATELET COUNT 158 10^3/uL (150-400); RED BLOOD CELL COUNT 4.05 10^6/uL (4.18-5.33); RED CELL DISTRIBUTION WIDTH 13.5 % (11.5-15.2)
[2016-10-21 05:56] LABS: ALANINE AMINOTRANSFERASE 20 IU/L (9-52); ALBUMIN 3.1 g/dL (3.5-5.0); ALKALINE PHOSPHATASE 150 IU/L (38-126); ANION GAP 10 mEq/L (8-16); ASPARTATE AMINOTRANSFERASE 28 IU/L (14-46); BILIRUBIN,TOTAL 0.7 mg/dL (0.1-1.4); CALCIUM 8.9 mg/dL (8.5-10.4); CARBON DIOXIDE 29 mEq/l (22-31); CHLORIDE 97 mEq/L (97-110); CREATININE 3.7 mg/dL (0.6-1.0); GLOMERULAR FILTRATION RATE 12; GLUCOSE 93 mg/dL (70-100); POTASSIUM 3.9 mEq/L (3.5-5.2); SODIUM 136 mEq/L (134-144); TOTAL PROTEIN 5.8 g/dL (6.3-8.2)
[2016-10-21] MEDS: LEVOTHYROXINE 100 MCG TAB PO SCH (06:16)
[2016-10-21] MEDS: INSULIN LISPRO 100 UNIT/ML SC SCH ×3 (08:29→19:16)
[2016-10-21] MEDS: LOSARTAN POTASSIUM 50 MG TAB PO SCH (08:41)
[2016-10-21] MEDS: PANTOPRAZOLE SODIUM 40 MG TAB PO SCH (08:42)
[2016-10-21] MEDS: HEPARIN 5,000 UNIT/0.5 ML SYR SC SCH ×2 (08:43→21:37)
--- NOTE | 2016-10-21 10:14 | PCMIDPN ---
Assessment/Plan: 1. MSSA bacteremia in end-stage renal disease patient with new diagnosis of cirrhosis: Patient is status post balloon angioplasty at the end of September for stenosis related to her fistula-- she has some excoriations/scabs and hematoma in this area, perhaps the skin source of her Staph aureus bacteremia. If does not clear bacteremia, consider A/V fistula hematoma as reservoir/source. Peritoneal fluid culture negative, I do not feel this is the etiology, yet the peritoneal fluid leukocytosis seems higher than one would expect 12 days post ventral hernia repair. For now, will obtain TTE for completeness sake in the setting of Staph aureus bacteremia. Change ceftriaxone to cefazolin, dose adjusted for hemodialysis. She will need 4 weeks of therapy. Repeat blood cultures are pending. 2. status post ventral hernia repair: No evidence of Postoperative infection. Subjective: Patient states she had an anxiety attack last night. Overall, she feels better. Less abdominal discomfort. No nausea or vomiting. Denies rigors. Has some tenderness over her AV fistula. Objective: ceftriaxone 1 g IV daily day 3 afebrile Vital Signs Temp Pulse Resp BP Pulse Ox 36.8 C 73 20 153/67 H 97 10/21/16 07:13 10/21/16 07:13 10/21/16 07:13 10/21/16 07:13 10/21/16 07:13 Laboratory Results 10/21/16 05:07 10/21/16 05:07 10/20/16 10/21/16 10/22/16 05:59 05:59 05:59 Intake Total 600 400 Balance 600 400 repeat blood cultures pending Blood cultures from October 1804/16 bottles MSSA peritoneal fluid with 2321 PMNs, but lymphocyte predominance Gram stain and culture negative - Physical Exam General Appearance: alert, no apparent distress EENT: pharynx normal, No scleral icterus, No thrush Respiratory: lungs clear Cardiac/Chest: systolic murmur Extremities: other ( left upper extremity AV fistula, warm, with significant hematoma and some excoriations) Abdomen: non-tender, soft, other ( surgical incision with Steri-Strips in place. Clean, dry, no erythema or tenderness whatsoever. No evidence of infection.) Skin: other ( Multiple bruises on her lower extremities where the patient states she felt 2 weeks ago), No embolic lesions ICD10 Worksheet Patient Problems: Problems Problem Status Onset Ascites Acute Spontaneous bacterial peritonitis Acute Abdominal pain Acute Ascites Acute Ascites Acute Chest pain Acute Cholelithiasis Acute Chronic renal failure Acute Elevated troponin Acute Fever Acute Gallstone Acute Problem with dialysis access Acute Pulmonary edema Acute
[2016-10-21] MEDS ORDERED: LORazepam 0.5 MG TAB PO PRN (11:47)
--- NOTE | 2016-10-21 11:52 | SOAPPROG ---
THO Progress Note Assessment/Plan: Assessment:Plan: ESRD-stable -for Hd tomorrow -typical Hd [facility] at [facility] [phone] Access-appears stable -does not look like there is a source of infection there -she had covered stent placed after [employer] complicated by dissection -obviously if this is infected, clearing this sort of endovascular source would be very complicated ID-per Dr. Monge Ascites-due to cirrhosis -being evaluated by Dr. Obrien in [place] -may end up needing TIPPS for long-term management [id number] Anxiety and insomnia-I wrote for Bid dosing of lorazepam 0.5mg prn -she has been on this before -she should go home on this Dispo-pending 10/21/16 11:53 Subjective: stable overnite except for a return of her anxiety Objective: Vital Signs Temp Pulse Resp BP Pulse Ox 36.8 C 72 20 148/76 H 97 10/21/16 11:45 10/21/16 11:45 10/21/16 11:45 10/21/16 11:45 10/21/16 11:45 Laboratory Results 10/21/16 05:07 10/21/16 05:07 10/20/16 10/21/16 10/22/16 05:59 05:59 05:59 Intake Total 600 400 Balance 600 400 PT 14.0 SEC (12.0-15.0) 10/20/16 05:03 INR 1.09 (0.83-1.16) 10/20/16 05:03 Physical Exam - Physical Exam General Appearance: WD/WN, alert, no apparent distress, obese EENT: normal ENT inspection Neck: normal inspection Respiratory: decreased breath sounds, No respiratory distress Cardiac/Chest: regular rate, rhythm, systolic murmur Abdomen: normal bowel sounds, non-tender, soft, No hepatomegaly, No splenomegaly Skin: normal color, warm/dry, other (bruise on L upper arm avf) Extremities: other (good bruit and thrill from avf), No swelling Neuro/Psych: no motor/sensory deficits, alert, normal mood/affect, oriented x 3 ICD10 Worksheet Patient Problems: Problems Problem Status Onset Ascites Acute Spontaneous bacterial peritonitis Acute Abdominal pain Acute Ascites Acute Ascites Acute Chest pain Acute Cholelithiasis Acute Chronic renal failure Acute Elevated troponin Acute Fever Acute Gallstone Acute Problem with dialysis access Acute Pulmonary edema Acute
--- NOTE | 2016-10-21 13:04 | ECHO ---
[id number] + + [address] : : [place] [address] : : [phone] + Adult Echocardiographic Report + ----+ :Name: Reema ORRsahil Date: 10/21/2016 10:49 AM : : Hospital Admission Number: [id number] Location: 384: :: 1950 Gender: Female Height: 61 in : :Age: 65 yrs Race: FAHAD,OT Weight: 141 lb : :Reason For Study: Eval for Endocarditis : : BSA: 1.6 meters2 : + ----+ MMode/2D Measurements \T\ Calculations IVSd: 1.3 cm LVIDd: 4.8 cm FS: 32.6 % Ao root diam: 2.6 cm LVPWd: 1.1 cm LVIDs: 3.3 cm EDV(Teich): 109.8 ml ACS: 1.7 cm ESV(Teich): 43.0 ml LA dimension: 4.1 cm EF(Teich): 60.9 % Normal Measurement Values: + + :LVIDd (3.5-5.7cm) IVSd (0.6-1.1cm) LVPWd (0.6-1.1cm) Aortic Root (2.0-3.7cm)Left Atrium (1.5-4.0cm): :LV Vol(d) (76-115ml) LV Vol(s) (29-48ml) Ejec Fraction (50-65%)PV Kota (0.6- 1.2m/s) TV Kota (0.4-1.0m/s) : :MV E Kota (0.8-1.0m/s)MV A Kota (0.3-1.0m/s)LVOT Kota (0.7-1.2m/s) Asc Ao Kota ( 0.9-1.8m/s) : + + Doppler Measurements \T\ Calculations MV E max kota: Ao V2 max: LV V1 max: PA V2 max: 81.4 cm/sec 169.7 cm/sec 80.5 cm/sec 89.6 cm/sec MV A max kota: Ao max PG: LV V1 max PG: PA max P.7 cm/sec 11.5 mmHg 2.6 mmHg 3.2 mmHg MV E/A: 0.79 TR max kota: 248.4 cm/sec TR max P.7 mmHg RAP systole: 5.0 mmHg RVSP(TR): 29.7 mmHg Left Ventricle The left ventricle is normal in size. There is mild concentric left ventricular hypertrophy. Ejection Fraction = 65%. There is Doppler evidence for diastolic dysfunction. The left ventricular wall motion is normal. Right Ventricle The right ventricle is normal in size and function. Atria The left atrial size is normal. Right atrial size is normal. Mitral Valve There is mild mitral annular calcification. There is no mitral valve stenosis. There is no mitral regurgitation noted. Tricuspid Valve Normal tricuspid valve. There is trace to mild tricuspid regurgitation. Right ventricular systolic pressure is normal. Aortic Valve There is mild aortic valve calcification. The aortic valve is trileaflet. There is no aortic stenosis. There is no aortic insufficiency. Pulmonic Valve The pulmonic valve is normal in structure and function. There is no pulmonic valvular regurgitation. Great Vessels The aortic root is normal size. Pericardium/Pleural There is no pericardial effusion. Conclusion A complete two-dimensional transthoracic echocardiogram was performed (2D, M-mode, Doppler and color flow Doppler). There is no evidence of a mass or vegetation. This does not rule out endocarditis. There is mild concentric left ventricular hypertrophy. Ejection Fraction = 65%. There is Doppler evidence for diastolic dysfunction. The left ventricular wall motion is normal. The right ventricle is normal in size and function. There is mild mitral annular calcification. There is trace to mild tricuspid regurgitation. Right ventricular systolic pressure is normal. There is mild aortic valve calcification. The aortic valve is trileaflet. There is no pericardial effusion. There is no evidence of a mass or vegetation. This does not rule out endocarditis. Final Reading Physician: Radha Arambula signed on 10/21/2016 01:03 PM Ordering Physician: Clarisa Monge Performed By: Franky Marcus, RDCS
--- NOTE | 2016-10-21 15:19 | HOSPPROG ---
Hospitalist Progress Note Assessment/Plan: Assessment: 65-year-old female presents with acute on chronic abdominal pain in the setting of possible spontaneous bacterial peritonitis, MSSA bacteremia Plan: 1. Possible SBP. Evidenced by 13,000 white blood cells in her ascitic fluid, negative Gram stain, associated abdominal pain, significant elevation in ascitic white blood cell count since her study from 09/06/2016 (outside paracentesis records reviewed) -day 4 IV ceftriaxone, Abx being adjusted for MSSA -abdominal tenderness improved -it is felt that the abdomen is unlikely to be the source of her MSSA as her GS/ Cx of ascitic fluid is negative 2. MSSA bacteremia. 1/ positive, repeat BCx 10/20 are pending, unclear source, although skin at fistula site is possibility and she did have endovascular procedure at that area this summer -unsafe for patient to be discharged home w/o definitively negative cultures, likely DC tomorrow on 4 weeks of IV Ancef once BCx neg -Echo today w/o vegs -appreciate ID consult, will need to f/u as outpt 3. End-stage renal disease. I suspect the patient's ascites may be related to her end-stage renal disease and fluid accumulation -she has been dialyzed twice, continue on Monday schedule -appreciate renal consultation -recommended the patient have increased volume removal at her outpatient dialysis center to gauge whether this affects her ascites -net neg 1.5kg LOS 4. Ascites. Chronic, unclear whether the patient truly has an underlying diagnosis of cirrhosis, reviewed outside records including 09/06/2016 CT scan demonstrating nodular, heterogenous liver which could be interpreted as cirrhosis in the setting of ascites, but she has not had a liver biopsy -agree w/ renal recs to have outpt gurinder planned to palliate, and TIPPS is also a possibility -recommend close outpt f/u Dr. Esparza, has appt on Monday (she is considering [facility] [place], will place referral in DC plan) 5. Chronic diastolic congestive heart failure. No evidence of acute exacerbation, monitor for evidence of decompensation -no clinical evidence of tamponade 6. Hyponatremia. Acute, secondary to end-stage renal disease, continue to monitor Diet. Renal Prophylaxis. High risk patient, heparin subcu Code. Do not resuscitate Disposition. Anticipated discharge is 10/22, requires ongoing hospitalization for Staph bacteremia. Subjective: patient reports anxiety o/n, tx w/ Rx, no abd pain Objective: Vital Signs Temp Pulse Resp BP Pulse Ox 36.8 C 72 20 148/76 H 97 10/21/16 11:45 10/21/16 11:45 10/21/16 11:45 10/21/16 11:45 10/21/16 11:45 Laboratory Results 10/21/16 05:07 10/21/16 05:07 10/20/16 10/21/16 10/22/16 05:59 05:59 05:59 Intake Total 600 400 Balance 600 400 PT 14.0 SEC (12.0-15.0) 10/20/16 05:03 INR 1.09 (0.83-1.16) 10/20/16 05:03 - Physical Exam Constitutional: no apparent distress, appears nourished, not in pain, No uncomfortable Cardiovascular: systolic murmur (III/ late systolic at LSB), No irregularly irregular, No tachycardia, No edema Respiratory: no respiratory distress, no rales or rhonchi, clear to auscultation Gastrointestinal: normoactive bowel sounds, ascites (mild), No tenderness, No guarding, No distension Skin: other (mild ecchymoses at surg site, preethi out, small non-tender hematoma, fistula site w/ some dried scabs, no erythema) Neurologic: AAOx3, sensation intact bilaterally Psychiatric: interacting appropriately, not anxious, not encephalopathic, thought process linear ICD10 Worksheet Patient Problems: Problems Problem Status Onset Chest pain Acute Pulmonary edema Acute Chronic renal failure Acute Problem with dialysis access Acute Gallstone Acute Elevated troponin Acute Cholelithiasis Acute Fever Acute Abdominal pain Acute Ascites Acute Ascites Acute Ascites Acute Spontaneous bacterial peritonitis Acute
--- NOTE | 2016-10-21 16:00 | SOAPPROG ---
SOAP Progress Note Assessment/Plan: Assessment: Assessment/Plan: 65 Y F admit with abdominal pain. recently diagnosed cirrhosis , etiology unknown at this time, s/p paracentesis. VH repair last visit. AVF stent last visit. Hernia repair intact. Iris removed, steri strips in place. AVF working well, continue HD. Has appt c GI in [place] 10/25. Dispo: per medicine. F/u with us in one month. S: Feels much better today. Breathing and swallowing more easily now. No bleeding at HD since AVF stent. Tolerating diet, no N/V. O: alert, nad avf with steady thrill abd soft, VH repair intact, inc cdi c steris, no erythema. Objective: Vital Signs Temp Pulse Resp BP Pulse Ox 36.5 C 75 16 138/73 H 95 10/21/16 15:57 10/21/16 15:57 10/21/16 15:57 10/21/16 15:57 10/21/16 15:57 Laboratory Results 10/21/16 05:07 10/21/16 05:07 10/20/16 10/21/16 10/22/16 05:59 05:59 05:59 Intake Total 600 400 Balance 600 400 PT 14.0 SEC (12.0-15.0) 10/20/16 05:03 INR 1.09 (0.83-1.16) 10/20/16 05:03 ICD10 Worksheet Patient Problems: Problems Problem Status Onset Ascites Acute Spontaneous bacterial peritonitis Acute Abdominal pain Acute Ascites Acute Ascites Acute Chest pain Acute Cholelithiasis Acute Chronic renal failure Acute Elevated troponin Acute Fever Acute Gallstone Acute Problem with dialysis access Acute Pulmonary edema Acute
[2016-10-21] MEDS: CALCIUM CARBONATE 500 MG CHEWABLE TAB PO PRN (21:45)
[2016-10-22 05:11] LABS: % IMMATURE GRANULYOCYTES 0.3 % (0.0-1.1); ABSOLUTE IMMATURE GRANULOCYTES 0.01 10^3/uL (0.00-0.10); ADD DIFF? NO; ADD MORPH? NO; ADD SCAN? NO; ATYPICAL LYMPHOCYTE FLAG 10 (0-99); FRAGMENT RBC FLAG 0 (0-99); HEMATOCRIT 38.3 % (38.0-47.0); HEMOGLOBIN 12.7 g/dL (12.6-16.3); LEFT SHIFT FLG 0 (0-99); LIPEMIA HEMOLYSIS FLAG 80 (0-99); MEAN CELL HEMOGLOBIN 30.4 pg (27.9-34.1); MEAN CELL HEMOGLOBIN CONCENTR. 33.2 g/dL (32.4-36.7); MEAN CELL VOLUME 91.6 fL (81.5-99.8); PLATELET CLUMPS FLAG 0 (0-99); PLATELET COUNT 147 10^3/uL (150-400); RED BLOOD CELL COUNT 4.18 10^6/uL (4.18-5.33); RED CELL DISTRIBUTION WIDTH 13.7 % (11.5-15.2)
[2016-10-22 05:23] LABS: ALANINE AMINOTRANSFERASE 20 IU/L (9-52); ALBUMIN 3.2 g/dL (3.5-5.0); ALKALINE PHOSPHATASE 145 IU/L (38-126); ANION GAP 10 mEq/L (8-16); ASPARTATE AMINOTRANSFERASE 27 IU/L (14-46); BILIRUBIN,TOTAL 0.6 mg/dL (0.1-1.4); CALCIUM 8.9 mg/dL (8.5-10.4); CARBON DIOXIDE 27 mEq/l (22-31); CHLORIDE 97 mEq/L (97-110); CREATININE 5.2 mg/dL (0.6-1.0); GLOMERULAR FILTRATION RATE 8; GLUCOSE 83 mg/dL (70-100); POTASSIUM 3.9 mEq/L (3.5-5.2); SODIUM 134 mEq/L (134-144); TOTAL PROTEIN 5.6 g/dL (6.3-8.2)
[2016-10-22] MEDS: LEVOTHYROXINE 100 MCG TAB PO SCH (06:04)
--- NOTE | 2016-10-22 09:49 | PCMIDPN ---
Assessment/Plan: # MSSA bacteremia, unclear source, query fistula due to trauma; 10/20/16 blood cx NGTD --plan cefazolin 2gm after HD through 11/02/16 --dc from ID standpoint okay # Elevated lymphocytes in peritoneal fluid 10/18/16 AFB smear negative and standard bacterial cx NGTD. Minimal abdominal pain today. --continue to monitor cultures --could consider repeat tap as outpatient to assess trend # H/o Serratia bacteremia meds cefazolin 1gm IV 10/21 ceftriaxone 10/19-10/21 Subjective: patient describes mid epigastric pain no diarrhea c/o itching of fistula Objective: Vital Signs Temp Pulse Resp BP Pulse Ox 36.8 C 83 16 150/86 H 97 10/22/16 08:00 10/22/16 08:00 10/22/16 08:00 10/22/16 08:00 10/22/16 08:00 Laboratory Results 10/22/16 04:35 10/22/16 04:35 10/21/16 10/22/16 10/23/16 05:59 05:59 05:59 Intake Total 400 750 Balance 400 750 - Physical Exam General Appearance: alert, no apparent distress EENT: pale conjunctiva, No scleral icterus Respiratory: lungs clear, No accessory muscle use Cardiac/Chest: regular rate, rhythm, No systolic murmur Extremities: other (LUE fisulta without redness, currently accessed for HD) Abdomen: normal bowel sounds, soft, ascites, other (mid epigastric discomfort to palpation) Skin: No rash Neuro/Psych: alert, normal mood/affect, oriented x 3 ICD10 Worksheet Patient Problems: Problems Problem Status Onset Ascites Acute Spontaneous bacterial peritonitis Acute Abdominal pain Acute Ascites Acute Ascites Acute Chest pain Acute Cholelithiasis Acute Chronic renal failure Acute Elevated troponin Acute Fever Acute Gallstone Acute Problem with dialysis access Acute Pulmonary edema Acute
[2016-10-22] MEDS ORDERED: LIDOCAINE 1% *Not for Epidural 20 ML MDV ONE (10:00)
[2016-10-22 12:49] VITALS: BP 138/70; PULSE 71; RESP 12; TEMP 98.3; O2SAT 98
[2016-10-22] MEDS: INSULIN LISPRO 100 UNIT/ML SC SCH (12:51)
--- NOTE | 2016-10-22 13:28 | SOAPPROG ---
SOAP Progress Note Assessment/Plan: Assessment: 1)ESRD- REBECCA Ana Paula TTS -HD today- had 1.2 kg UF 2)MSSA bacteremia -ID following- needs Ancef with HD through 11/02 (I called orders into outpt unit today and reviewed with pt) -TTE negative vegetations 3)Anemia of CKD -hb above goal, no Epo 4)s/p hernia repair 5)Cirrhosis with ascites- sees Dr. Obrien as outpt Kaylene Benito MD [facility] pager [phone] 10/22/16 14:54 Subjective: Feeling better, eating lunch when I came by. HD earlier today- 1.2 Kg UF, tolerated well. Denies sob, LE edema. Asking if can go home. Objective: Vital Signs Temp Pulse Resp BP Pulse Ox 36.8 C 71 12 138/70 H 98 10/22/16 12:41 10/22/16 12:41 10/22/16 12:41 10/22/16 12:41 10/22/16 12:41 Microbiology 10/18/16 18:36 Blood Panel (PCR) - Final Blood Staph Coagulase Negative Laboratory Results 10/22/16 04:35 10/22/16 04:35 10/21/16 10/22/16 10/23/16 05:59 05:59 05:59 Intake Total 400 750 Balance 400 750 PT 14.0 SEC (12.0-15.0) 10/20/16 05:03 INR 1.09 (0.83-1.16) 10/20/16 05:03 Physical Exam - Physical Exam General Appearance: alert, no apparent distress Neck: supple Respiratory: lungs clear Cardiac/Chest: regular rate, rhythm Abdomen: non-tender, soft Extremities: other (AVF) Neuro/Psych: alert, oriented x 3 ICD10 Worksheet Patient Problems: Problems Problem Status Onset Ascites Acute Spontaneous bacterial peritonitis Acute Abdominal pain Acute Ascites Acute Ascites Acute Chest pain Acute Cholelithiasis Acute Chronic renal failure Acute Elevated troponin Acute Fever Acute Gallstone Acute Problem with dialysis access Acute Pulmonary edema Acute
[2016-10-22] MEDS: CALCIUM CARBONATE 500 MG CHEWABLE TAB PO PRN (13:52)
[2016-10-22] MEDS: LOSARTAN POTASSIUM 50 MG TAB PO SCH (13:53)
[2016-10-22] MEDS: PANTOPRAZOLE SODIUM 40 MG TAB PO SCH (13:54)
[2016-10-22] MEDS: HEPARIN 5,000 UNIT/0.5 ML SYR SC SCH (13:55)
--- NOTE | 2016-10-22 14:54 | PDDCSUM ---
Discharge Summary Discharge Summary: Dates of service 10/18-10/22/16 Discharge diagnosis: # ? SBP # coag neg staph in blood cultures # esrd # chronic liver disease # chronic diastolic chf # hyponatremia # recent hernia repair Consultations: renal, ID Procedures performed: HD, echo, abd ct, US guided paracentesis 1. Possible SBP. Evidenced by 13,000 white blood cells in her ascitic fluid, negative Gram stain, associated abdominal pain, significant elevation in ascitic white blood cell count since her study from 09/06/2016 (outside paracentesis records reviewed) -has received abx in house and given negative cultures will dc abx at this time , recommending repeat cultures/cell count in a week when she has f/u with GI 2. Coag neg staph blood cultures: initially reported in error as MSSA, has been on ctx but will dc abx at this time 3. End-stage renal disease. appreciate renal consult, will continue her usual HD regimen after dc 4. chronic liver disease/cirrhosis: followed by Dr. Obrien in [place] with a plan to f/u with him after dc in coming week, as above consider repeat tap at that time, currently appears well compensated without significant increase in ascites 5. Chronic diastolic congestive heart failure. No evidence of acute exacerbation 6. Hyponatremia. Resolved, in setting of volume overload from esrd/ascites Diet. Renal Code. Do not resuscitate DC to home Meds: see EHR > 35 minutes spent in dc of patient more than half in coordination of care
--- NOTE | 2016-10-22 16:17 | PDIAF ---
- Diagnosis Code Status: Do Not Resuscitate - Medication Management Discharge Medications: Medications to Continue on Transfer amLODIPine BESYLATE [Norvasc 10 mg (*)] 10 mg PO DAILY 08/24/15 [Last Taken 09/26] Losartan Potassium [Cozaar 50 mg (*)] 100 mg PO DAILY 09/22/15 [Last Taken 10/17] Levothyroxine [Synthroid 100 mcg (*)] 100 mcg PO DAILY 01/16/16 [Last Taken 09/26] Pantoprazole Sodium [Protonix 40mg (*)] 40 mg PO DAILY 07/04/16 [Last Taken 09/26] Acetaminophen [Tylenol 325mg (*)] 325 mg PO DAILY PRN 07/07/16 [Last Taken 10/17] hydrALAZINE [Apresoline 50 mg (*)] 50 mg PO TID 07/07/16 [Last Taken 10/17/16] oxyCODONE IR [Oxycodone Ir (*)] 5 mg PO Q4 PRN #20 tab 10/13/16 [Last Taken 09/26] LORazepam [Ativan (*)] 0.5 mg PO BID PRN #60 tab 10/22/16 [Last Taken Unknown] Ondansetron Odt [Zofran Odt 4 mg (*)] 4 mg PO Q4HRS PRN #30 tab 10/22/16 [Last Taken Unknown] Sennosides/Docusate Sodium [Senokot-S] 1 - 2 tab PO BID PRN #0 tab 10/22/16 [ Last Taken Unknown] Discharge Medications: Refer to the Discharge Home Medication list for PRN reason. - Orders Services needed: Registered Nurse, Certified [employer]ic Diet Recommendation: potassium restricted Weigh Patient: weekly - Follow Up Care Current Providers and Referrals: FROY KRUSE [Doctor of Osteopathy] - Marco Molina MD [Medical Doctor] - Ulisses Thompson MD [Medical Doctor] - As per Instructions (one month) HILDA AUGUSTE [Primary Care Provider] - As per Instructions
[2016-10-25] MEDS ORDERED: ceFAZolin 2 GM/DEXTROSE 100 ML IV SCH (08:00)
== END 2016-10-22 15:56 | disposition home health service (06) | DRG 371 ==
LOC: F3E 19:48
PROVIDERS: ADMIT Hospitalist; ATTEND Hospitalist
PROC: 0W9G3ZX Drainage of Peritoneal Cavity, Percutaneous Approach, Diagnostic (ICD-10-PCS; 2016-10-18)
PROC: 5A1D60Z (ICD-10-PCS; principal; 2016-10-19)
DX: K65.2 Spontaneous bacterial peritonitis (principal); I12.0 Hypertensive chronic kidney disease with stage 5 chronic kidney disease or end stage renal disease; N18.6 End stage renal disease; I50.32 Chronic diastolic (congestive) heart failure; E87.1 Hypo-osmolality and hyponatremia; R18.8 Other ascites; K74.60 Unspecified cirrhosis of liver; E11.22 Type 2 diabetes mellitus with diabetic chronic kidney disease; Z66 Do not resuscitate; Z99.2 Dependence on renal dialysis
CPT/HCPCS: 97161-GP; J0690; J0696; J1815

== ENCOUNTER 2016-11-20 19:14 | Emergency (ER) | payer MEDICAID ==
[2016-11-20 19:22] VITALS: O2SAT 96
--- NOTE | 2016-11-20 20:14 | EDPHY ---
H & P Time Seen by Provider: 11/20/16 19:41 HPI/ROS: HPI Ascites, bloating. 65-year-old female by private vehicle with her daughter. This patient has a history of renal failure she is on dialysis as well as a site ease. She has required paracentesis several times since August. She reports increasing abdominal bloating and discomfort typical of her ascites for the last 5 days. She reports that she felt better after her dialysis yesterday. She comes into the emergency department tonight complaining of abdominal discomfort secondary to her ascites. She has not had a fever. No vomiting. She again describes this is typical bloating and discomfort that she has had in the past. ROS: Constitutional: No fever, no chills. No weakness. Eyes: No discharge. No changes in vision. ENT: No sore throat. No nasal congestion or rhinorrhea. Respiratory: No cough. No shortness of breath. Cardiac: No chest pain, no palpitations. Gastrointestinal: As above, no vomiting, no diarrhea. Genitourinary: No hematuria. No dysuria or increased frequency with urination. Musculoskeletal: No back pain. No neck pain. No myalgias or arthralgias. Skin: No rashes. Neurological: No headache. No focal weakness or altered sensation. Past medical history: CHF, renal failure with dialysis on Monday, and Monday, depression, hypertension, pulmonary hypertension, sleep apnea, liver cirrhosis, coronary artery disease with stents, cholecystectomy. Social history: Nonsmoker. Here with her daughter. No alcohol. Physical Exam: General Appearance: Alert, no distress. This patient is responding to questions appropriately and in full sentences. This patient appears well- hydrated and well-nourished. Eyes: Pupils equal and round no pallor or injection. No lid edema, erythema or injection. Respiratory: There are no retractions, lungs are clear to auscultation with good air movement bilaterally. Cardiovascular: Regular rate and rhythm. No murmur. Gastrointestinal: Abdomen is soft moderately distended with a fluid wave palpable, she has vague discomfort on palpation, no peritoneal findings, no masses, bowel sounds normal. No focal tenderness at McBurney's point. No Ford sign. Neurological: Motor sensory function is grossly intact. Cranial nerves are normal. Gait is normal. Skin: Warm and dry, no rashes. Musculoskeletal: Neck is supple and nontender. Extremities are symmetrical. All joints range without pain or impingement. Psychiatric: No agitation. No depression. Database: EKG: Imaging: Procedures: Emergency department course: Vital signs reviewed and are normal. She is afebrile. Bedside abdominal ultrasound demonstrates 1-1.5 L of ascites fluid. Spoke with interventional radiologist Dr. Yosvany Good. The patient is stable. Plan will be to have her paracentesis done as an outpatient in the IR Clinic tomorrow morning. Appropriate blood work for this procedure drawn in the emergency department tonight. This plan was discussed with the patient and her daughter. They are both in full agreement. The patient feels that she will be okay waiting until tomorrow morning to have this done. On my evaluation there is not an emergent indication for the procedure to be done now in the emergency department. I placed an order for a paracentesis. Through radiologist, Yosvany Good , we have arranged this patient to be seen at 9:00 a.m. tomorrow in clinic for her ultrasound-guided paracentesis to be done. The patient is in agreement with this plan as is her daughter. They are to come to the main entrance at the emergency department at 9:00 a.m. for this procedure. Return to emergency department precautions were discussed for overnight tonight. All of their questions were answered. Appropriate blood work for tomorrow as paracentesis ordered and reviewed by myself. The patient was discharged home in good condition. Differential Diagnosis: The differential diagnosis on this patient includes but is not limited to ascites. SBP, appendicitis, cholecystitis, pancreatitis, volvulus, bowel obstruction, other surgical etiology unlikely. This represents a partial list of diagnoses considered. These considerations are based on history, physical exam, past history, reassessment and diagnostic testing. Smoking Status: Never smoked Constitutional: Initial Vital Signs Temperature (C) 36.4 C 11/20/16 19:19 Heart Rate 65 11/20/16 19:19 Respiratory Rate 20 11/20/16 19:19 Blood Pressure 191/55 H 11/20/16 19:19 O2 Sat (%) 96 11/20/16 19:19 O2 Delivery Mode Room Air Allergies/Adverse Reactions: aspirin Allergy (Severe, Verified 10/18/16 10:28) NSAIDS (Non-Steroidal Anti-Inflamma Allergy (Severe, Verified 10/18/16 10:28) Swelling/neck,face,throat morphine Allergy (Intermediate, Verified 10/18/16 10:28) Home Medications: Medication Instructions Recorded amLODIPine BESYLATE [Norvasc 10 mg 10 mg PO DAILY 08/24/15 (*)] Losartan Potassium [Cozaar 50 mg 100 mg PO DAILY 09/22/15 (*)] Levothyroxine [Synthroid 100 mcg 100 mcg PO DAILY 01/16/16 (*)] Pantoprazole Sodium [Protonix 40mg 40 mg PO DAILY 07/04/16 (*)] Acetaminophen [Tylenol 325mg (*)] 325 mg PO DAILY PRN 07/07/16 hydrALAZINE [Apresoline 50 mg (*)] 50 mg PO TID 07/07/16 LORazepam [Ativan (*)] 0.5 mg PO BID PRN #60 tab 10/22/16 Ondansetron Odt [Zofran Odt 4 mg 4 mg PO Q4HRS PRN #30 tab 10/22/16 (*)] Medical Decision Making - Data Points Laboratory Results: Laboratory Results 11/20/16 20:15 11/20/16 20:15 11/20/16 11/20/16 11/20/16 20:15 20:15 20:15 WBC 2.81 10^3/uL L 10^3/uL (3.80-9.50) RBC 3.22 10^6/uL L 10^6/uL (4.18-5.33) Hgb 9.9 g/dL L g/dL (12.6-16.3) Hct 29.2 % L % (38.0-47.0) MCV 90.7 fL fL (81.5-99.8) MCH 30.7 pg pg (27.9-34.1) MCHC 33.9 g/dL g/dL (32.4-36.7) RDW 13.3 % % (11.5-15.2) Plt Count 116 10^3/uL L 10^3/uL (150-400) MPV 8.8 fL fL (8.7-11.7) Neut % (Auto) 56.5 % % (39.3-74.2) Lymph % (Auto) 25.6 % % (15.0-45.0) [place] % (Auto) 17.1 % H % (4.5-13.0) Eos % (Auto) 0.0 % L % (0.6-7.6) Baso % (Auto) 0.4 % % (0.3-1.7) Nucleat RBC Rel Count 0.0 % % (0.0-0.2) Absolute Neuts (auto) 1.59 10^3/uL L 10^3/uL (1.70-6.50) Absolute Lymphs (auto) 0.72 10^3/uL L 10^3/uL (1.00-3.00) Absolute Monos (auto) 0.48 10^3/uL 10^3/uL (0.30-0.80) Absolute Eos (auto) 0.00 10^3/uL L 10^3/uL (0.03-0.40) Absolute Basos (auto) 0.01 10^3/uL L 10^3/uL (0.02-0.10) Absolute Nucleated RBC 0.00 10^3/uL 10^3/uL (0-0.01) Immature Gran % 0.4 % % (0.0-1.1) Immature Gran # 0.01 10^3/uL 10^3/uL (0.00-0.10) PT 13.9 SEC SEC (12.0-15.0) INR 1.08 (0.83-1.16) APTT 39.6 SEC H SEC (23.0-38.0) Sodium 134 mEq/L mEq/L (134-144) Potassium 4.6 mEq/L mEq/L (3.5-5.2) Chloride 99 mEq/L mEq/L (97-110) Carbon Dioxide 23 mEq/l mEq/l (22-31) Anion Gap 12 mEq/L mEq/L (8-16) BUN 34 mg/dL H mg/dL (7-23) Creatinine 4.9 mg/dL H mg/dL (0.6-1.0) Estimated GFR 9 Glucose 100 mg/dL mg/dL (70-100) Calcium 9.4 mg/dL mg/dL (8.5-10.4) Departure - Departure Disposition: Home, Routine, Self-Care Clinical Impression: Ascites, Hypertension Condition: Good Instructions: Ascites (ED) Additional Instructions: Read and follow provided instructions. You are to come to the hospital, go to the front office developer through the emergency department doors and explain you are scheduled for a paracentesis. Please the come to the front office developer the emergency department at 9:00 a.m. tomorrow morning. As discussed, a your blood work shows you are more anemic than you have been. Your blood levels should be recheck by your primary care physician later this week. Take medication your medications as prescribed tonight. Return to the emergency department for worsening abdominal pain, vomiting, fever or other serious concerns. Referrals: HILDA AUGUSTE [Primary Care Provider] - As per Instructions
[2016-11-20 20:25] LABS: % IMMATURE GRANULYOCYTES 0.4 % (0.0-1.1); ABSOLUTE IMMATURE GRANULOCYTES 0.01 10^3/uL (0.00-0.10); ADD DIFF? NO; ADD MORPH? NO; ADD SCAN? NO; ATYPICAL LYMPHOCYTE FLAG 10 (0-99); FRAGMENT RBC FLAG 0 (0-99); HEMATOCRIT 29.2 % (38.0-47.0); HEMOGLOBIN 9.9 g/dL (12.6-16.3); LEFT SHIFT FLG 0 (0-99); LIPEMIA HEMOLYSIS FLAG 90 (0-99); MEAN CELL HEMOGLOBIN 30.7 pg (27.9-34.1); MEAN CELL HEMOGLOBIN CONCENTR. 33.9 g/dL (32.4-36.7); MEAN CELL VOLUME 90.7 fL (81.5-99.8); MEAN PLATELET VOLUME 8.8 fL (8.7-11.7); PLATELET CLUMPS FLAG 0 (0-99); PLATELET COUNT 116 10^3/uL (150-400); RED BLOOD CELL COUNT 3.22 10^6/uL (4.18-5.33); RED CELL DISTRIBUTION WIDTH 13.3 % (11.5-15.2)
[2016-11-20 20:35] LABS: APTT 39.6 SEC (23.0-38.0); INR 1.08 (0.83-1.16); PROTIME(PATIENT) 13.9 SEC (12.0-15.0)
[2016-11-20 20:38] LABS: ANION GAP 12 mEq/L (8-16); CALCIUM 9.4 mg/dL (8.5-10.4); CARBON DIOXIDE 23 mEq/l (22-31); CHLORIDE 99 mEq/L (97-110); CREATININE 4.9 mg/dL (0.6-1.0); GLOMERULAR FILTRATION RATE 9; GLUCOSE 100 mg/dL (70-100); POTASSIUM 4.6 mEq/L (3.5-5.2); SODIUM 134 mEq/L (134-144)
[2016-11-20 21:05] VITALS: BP 172/69; PULSE 62; RESP 16; TEMP 97.7
== END 2016-11-20 21:03 | disposition home or self-care (01) ==
DX: R18.8 Other ascites (principal); I13.2 Hypertensive heart and chronic kidney disease with heart failure and with stage 5 chronic kidney disease, or end stage renal disease; I50.9 Heart failure, unspecified; N18.6 End stage renal disease; I25.10 Atherosclerotic heart disease of native coronary artery without angina pectoris; Z99.2 Dependence on renal dialysis

== ENCOUNTER → 2016-11-21 | Outpatient (CLI) | payer MEDICAID | LOC: FIMAGING 09:13 | PROVIDERS: ATTEND Emergency Medicine | PROC: 0W9F3ZZ Drainage of Abdominal Wall, Percutaneous Approach (ICD-10-PCS; principal; 2016-11-21) | DX: R18.8 Other ascites (principal) ==

== ENCOUNTER 2016-12-29 13:36 | Emergency (ER) | payer OTHER, MEDICAID ==
[2016-12-29 13:41] VITALS: TEMP 97.9
--- NOTE | 2016-12-29 14:22 | EDPHY ---
H & P Time Seen by Provider: 12/29/16 13:47 HPI/ROS: CHIEF COMPLAINT: Water in my stomach HISTORY OF PRESENT ILLNESS: This 66-year-old woman is dialysis patient who was a history ascites. She was last paracentesis about a month ago. On October 18 she was admitted for white blood cell count in her peritoneal fluid over 13,000 and possible bacterial peritonitis. At that time it sounds like she tells me that she had more abdominal pain and felt sick. The patient presents today with abdominal bloating which is been present for the last for 5 days. She says she does not have abdominal pain or fever or vomiting or diarrhea, just the bloating has gotten bad enough that she feels like she needs to have paracentesis again. Symptoms moderate. Do not radiate, not better worse with anything. REVIEW OF SYSTEMS: Eye: no change in vision ENT: no sore throat Cardiac: no chest pain or syncope Pulmonary: no cough or SOB Abdomen: HPI Musculoskeletal: no back pain Skin: no rash Neuro: no headache Constitutional: no fever : no urinary symptoms A comprehensive 10 point review of systems is otherwise negative aside from elements mentioned in the history of present illness. PAST MEDICAL HISTORY: Includes type 2 diabetes, end-stage renal disease on hemodialysis, recurrent ascites, pancytopenia, ventral hernia repair, hysterectomy, av fistula on the left arm, cholecystectomy. Social history: Here with her daughter, cask maker is Dr. Chavez, PCP is Ben in [place]. General Appearance: Alert and conversant, cooperative. Appears comfortable. Eyes: No scleral icterus. ENT, Mouth: Normal mucous membranes. Respiratory: Normal respiratory effort, breath sounds equal, lungs are clear to auscultation. Cardiovascular: Regular rate and rhythm. Left arm fistula has a thrill. Gastrointestinal: Abdominal distention but no rebound or guarding. Bowel sounds present. No rebound or guarding. Neurological: Alert and oriented x3. Normally conversant. Face symmetric, normal movement and sensation in all extremities. Skin: Warm and dry, no rashes. Musculoskeletal: No peripheral edema and no joint swelling. Psychiatric: Not agitated. Emergency Department course/MDM: Patient would like to have therapeutic paracentesis and then be discharged which I think is reasonable. 1540: Patient re-evaluated, ultrasound shows minimal ascites, plan for abdominal pelvic CT scanning discussed and consented. 1800: per [facility] CT scan shows maybe 1 L of fluid probably ascites in the pelvis otherwise no other fluid collections. No bowel obstruction. No other reason for abdominal pain. Results discussed with the patient. I told her symptomatic treatment and expectant management would be the most reasonable course. Per the radiologist, her fluid collection is small relatively and not very amenable to ultrasound- guided paracentesis. I think it is unlikely that she has bacterial peritonitis now. Her white blood cell count, red blood cell count, and platelet count are all noted to be low which is a chronic state for her. Patient is given abdominal pain discharge instructions as that is probably the most appropriate warnings for her to have, however here she does not really have any pain just has bloating. Smoking Status: Never smoked Constitutional: Initial Vital Signs Temperature (C) 36.6 C 12/29/16 13:39 Heart Rate 57 L 12/29/16 13:39 Respiratory Rate 14 12/29/16 13:39 Blood Pressure 150/46 H 12/29/16 13:39 O2 Sat (%) 93 12/29/16 13:39 O2 Delivery Mode Room Air Allergies/Adverse Reactions: aspirin Allergy (Severe, Verified 10/18/16 10:28) NSAIDS (Non-Steroidal Anti-Inflamma Allergy (Severe, Verified 10/18/16 10:28) Swelling/neck,face,throat morphine Allergy (Intermediate, Verified 10/18/16 10:28) Home Medications: Medication Instructions Recorded amLODIPine BESYLATE [Norvasc 10 mg 10 mg PO DAILY 08/24/15 (*)] Losartan Potassium [Cozaar 50 mg 100 mg PO DAILY 09/22/15 (*)] Levothyroxine [Synthroid 100 mcg 100 mcg PO DAILY 01/16/16 (*)] Pantoprazole Sodium [Protonix 40mg 40 mg PO DAILY 07/04/16 (*)] Acetaminophen [Tylenol 325mg (*)] 325 mg PO DAILY PRN 07/07/16 hydrALAZINE [Apresoline 50 mg (*)] 50 mg PO TID 07/07/16 LORazepam [Ativan (*)] 0.5 mg PO BID PRN #60 tab 10/22/16 Ondansetron Odt [Zofran Odt 4 mg 4 mg PO Q4HRS PRN #30 tab 10/22/16 (*)] Medical Decision Making - Diagnostics Imaging Results: Imaging Impressions Abdomen Ultrasound 12/29/16 14:03 Impression: Very little ascites limited to the right lower quadrant. No paracentesis performed today. Abdomen/Pelvis CT 12/29/16 15:42 Impression: 1. Pelvic ascites is noted with no significant right lower quadrant fluid identified and there is minimal ascites in the upper abdomen adjacent to the liver and spleen. 2. See above report for additional findings. Results called and discussed with DHARA CROSS M.D. on 12/29/2016 at 17:56 Differential Diagnosis: Differential considered including but not limited to ascites, peritonitis, bowel obstruction, constipation, intestinal perforation. - Data Points Laboratory Results: Laboratory Results 12/29/16 15:35 12/29/16 15:35 12/29/16 12/29/16 12/29/16 15:35 15:35 15:35 WBC 2.58 10^3/uL L 10^3/uL (3.80-9.50) RBC 2.77 10^6/uL L 10^6/uL (4.18-5.33) Hgb 8.7 g/dL L g/dL (12.6-16.3) Hct 25.6 % L % (38.0-47.0) MCV 92.4 fL fL (81.5-99.8) MCH 31.4 pg pg (27.9-34.1) MCHC 34.0 g/dL g/dL (32.4-36.7) RDW 14.0 % % (11.5-15.2) Plt Count 96 10^3/uL L 10^3/uL (150-400) MPV 9.4 fL fL (8.7-11.7) Neut % (Auto) 70.5 % % (39.3-74.2) Lymph % (Auto) 18.2 % % (15.0-45.0) [place] % (Auto) 10.9 % % (4.5-13.0) Eos % (Auto) 0.0 % L % (0.6-7.6) Baso % (Auto) 0.0 % L % (0.3-1.7) Nucleat RBC Rel Count 0.0 % % (0.0-0.2) Absolute Neuts (auto) 1.82 10^3/uL 10^3/uL (1.70-6.50) Absolute Lymphs (auto) 0.47 10^3/uL L 10^3/uL (1.00-3.00) Absolute Monos (auto) 0.28 10^3/uL L 10^3/uL (0.30-0.80) Absolute Eos (auto) 0.00 10^3/uL L 10^3/uL (0.03-0.40) Absolute Basos (auto) 0.00 10^3/uL L 10^3/uL (0.02-0.10) Absolute Nucleated RBC 0.00 10^3/uL 10^3/uL (0-0.01) Immature Gran % 0.4 % % (0.0-1.1) Immature Gran # 0.01 10^3/uL 10^3/uL (0.00-0.10) PT 14.1 SEC SEC (12.0-15.0) INR 1.10 (0.83-1.16) Sodium 136 mEq/L mEq/L (134-144) Potassium 3.8 mEq/L mEq/L (3.5-5.2) Chloride 96 mEq/L L mEq/L (97-110) Carbon Dioxide 28 mEq/l mEq/l (22-31) Anion Gap 12 mEq/L mEq/L (8-16) BUN 15 mg/dL mg/dL (7-23) Creatinine 2.3 mg/dL H mg/dL (0.6-1.0) Estimated GFR 21 Glucose 159 mg/dL H mg/dL (70-100) Calcium 8.5 mg/dL mg/dL (8.5-10.4) Total Bilirubin 0.8 mg/dL mg/dL (0.1-1.4) Conjugated Bilirubin 0.7 mg/dL H mg/dL (0.0-0.5) Unconjugated Bilirubin 0.1 mg/dL mg/dL (0.0-1.1) AST 25 IU/L IU/L (14-46) ALT 23 IU/L IU/L (9-52) Alkaline Phosphatase 136 IU/L H IU/L (38-126) Total Protein 6.3 g/dL g/dL (6.3-8.2) Albumin 3.7 g/dL g/dL (3.5-5.0) Departure - Departure Disposition: Home, Routine, Self-Care Clinical Impression: Abdominal bloating Ascites Qualifiers: Ascites type: other type Qualified Code(s): R18.8 - Other ascites Condition: Good Instructions: Acute Abdominal Pain (ED), Ascites (ED) Additional Instructions: Please return if you get worse bloating or fever. Referrals: HILDA AUGUSTE [Primary Care Provider] - As per Instructions
[2016-12-29 15:53] LABS: % IMMATURE GRANULYOCYTES 0.4 % (0.0-1.1); ABSOLUTE IMMATURE GRANULOCYTES 0.01 10^3/uL (0.00-0.10); ADD DIFF? NO; ADD MORPH? NO; ADD SCAN? NO; ATYPICAL LYMPHOCYTE FLAG 0 (0-99); FRAGMENT RBC FLAG 0 (0-99); HEMATOCRIT 25.6 % (38.0-47.0); HEMOGLOBIN 8.7 g/dL (12.6-16.3); LEFT SHIFT FLG 0 (0-99); LIPEMIA HEMOLYSIS FLAG 90 (0-99); MEAN CELL HEMOGLOBIN 31.4 pg (27.9-34.1); MEAN CELL VOLUME 92.4 fL (81.5-99.8); MEAN PLATELET VOLUME 9.4 fL (8.7-11.7); PLATELET CLUMPS FLAG 20 (0-99); PLATELET COUNT 96 10^3/uL (150-400); RED BLOOD CELL COUNT 2.77 10^6/uL (4.18-5.33)
[2016-12-29 16:05] LABS: INR 1.1 (0.83-1.16); PROTIME(PATIENT) 14.1 SEC (12.0-15.0)
[2016-12-29 16:11] LABS: ALANINE AMINOTRANSFERASE 23 IU/L (9-52); ALBUMIN 3.7 g/dL (3.5-5.0); ALKALINE PHOSPHATASE 136 IU/L (38-126); ANION GAP 12 mEq/L (8-16); ASPARTATE AMINOTRANSFERASE 25 IU/L (14-46); BILIRUBIN,TOTAL 0.8 mg/dL (0.1-1.4); BILIRUBIN-CONJUGATED 0.7 mg/dL (0.0-0.5); BILIRUBIN-UNCONJUGATED 0.1 mg/dL (0.0-1.1); CALCIUM 8.5 mg/dL (8.5-10.4); CARBON DIOXIDE 28 mEq/l (22-31); CHLORIDE 96 mEq/L (97-110); CREATININE 2.3 mg/dL (0.6-1.0); GLOMERULAR FILTRATION RATE 21; GLUCOSE 159 mg/dL (70-100); POTASSIUM 3.8 mEq/L (3.5-5.2); SODIUM 136 mEq/L (134-144); TOTAL PROTEIN 6.3 g/dL (6.3-8.2)
[2016-12-29 18:38] VITALS: BP 173/53; PULSE 56; RESP 13; O2SAT 97
== END 2016-12-29 18:48 | disposition home or self-care (01) ==
DX: R18.8 Other ascites (principal); R14.0 Abdominal distension (gaseous); E11.9 Type 2 diabetes mellitus without complications; Z90.49 Acquired absence of other specified parts of digestive tract

== ENCOUNTER 2017-01-20 07:02 | Day surgery (SDC) | payer OTHER, MEDICAID ==
[2017-01-20] MEDS ORDERED: MIDAZOLAM 2 MG/2 ML VIAL IVP PRN (07:12)
[2017-01-20] MEDS ORDERED: FLUMAZENIL 0.5 MG/5 ML MDV IVP PRN (07:12)
[2017-01-20] MEDS ORDERED: NALOXONE HCL 0.4 MG/ML INJ IVP PRN (07:12)
[2017-01-20] MEDS ORDERED: HEPARIN 10,000 UNIT/10 ML MDV IVP PRN (07:12)
[2017-01-20] MEDS ORDERED: fentaNYL 100 MCG/2 ML INJ IVP PRN (07:12)
[2017-01-20] MEDS ORDERED: GLUCAGON HCL 1 MG VIAL IVP PRN (07:12)
[2017-01-20] MEDS ORDERED: MEPERIDINE 25 MG/ML SYR IVP PRN (07:12)
[2017-01-20] MEDS ORDERED: PROTAMINE SULFATE 50 MG/5 ML VIAL IVP PRN (07:12)
[2017-01-20] MEDS ORDERED: ALTEPLASE 2 MG VIAL IVP PRN (07:12)
[2017-01-20] MEDS ORDERED: NS 1,000 ML IV SCH (07:15)
[2017-01-20 08:11] VITALS: PULSE 56; RESP 18; TEMP 208
[2017-01-20] MEDS ORDERED: fentaNYL 100 MCG/2 ML INJ ONE (08:45)
[2017-01-20] MEDS ORDERED: MIDAZOLAM 2 MG/2 ML VIAL ONE (08:46)
--- NOTE | 2017-01-20 08:57 | PDGENHP ---
History & Physical Chief Complaint: Follow-up LUE AV fistulogram. History of Present Illness: 65 yo F w h/o ESRD on HD, DM, HTN, CHF, pancytopenia and possible cirrhosis who underwent LUE AV fistulogram, angioplasty and stent placement on 10/10/16 who presents today for routine follow -up fistulogram. No issues with hemodialysis through LUE AVF. Pertinent Past, Social, Family History: Livers with son. Denies EtOH, tobacco. Relevant Physical Exam: LUE fistula, pulsatile with proximal thrill, probable pseudoaneurysm.
--- NOTE | 2017-01-20 09:18 | PDPROPOC ---
Sedation Plan of Care Sedation Plan of Care: vital signs stable, mental status noted, patient educated of risks, benefits, alternatives, patient can tolerate sedation ASA Classification: ASA 3 Planned drugs: fentanyl, midazolam (If intervention.) Mallampati Score: Class 1 Mallampati Reference Image: Patient passed 3-3-2 rule?: Yes
[2017-01-20] MEDS ORDERED: HEPARIN 10,000 UNIT/10 ML MDV ONE (10:45)
[2017-01-20] MEDS ORDERED: ONDANSETRON 4 MG/2 ML VIAL ONE (11:40)
[2017-01-20] MEDS ORDERED: ONDANSETRON 4 MG/2 ML VIAL IVP ONE (12:10)
[2017-01-20 12:26] VITALS: BP 144/44; O2SAT 96
== END 2017-01-20 12:37 | disposition home or self-care (01) ==
LOC: FIMAGING 07:02
PROVIDERS: ATTEND Internal Medicine Nephrology
PROC: 05763ZZ Dilation of Left Subclavian Vein, Percutaneous Approach (ICD-10-PCS; principal; 2017-01-20)
DX: I87.1 Compression of vein (principal); N18.6 End stage renal disease
CPT/HCPCS: 36907; C1769; C1894; C1725; J1644; J2250; J2405; J3010

== ENCOUNTER 2017-02-01 18:18 | Emergency (ER) | payer MEDICAID, OTHER ==
--- NOTE | 2017-02-01 18:41 | EDPHY ---
HPI/HX/ROS/PE/MDM Narrative: CHIEF COMPLAINT: Abdominal distension HPI: This patient is a 66 year old female with history of cirrhosis with recurrent ascites and end-stage renal disease complaining of abdominal pain and distension worsening over the last two months. She endorses pressure and discomfort in her abdomen and chest consistent with her usual ascites presentation. Her last paracentesis was in November. Abdominal ultrasound in December revealed a small amount of fluid, but paracentesis was not recommended at that time. She regularly undergoes dialysis, and her last appointment was yesterday. Today, she feels quite uncomfortable and wishes to undergo paracentesis if warranted. REVIEW OF SYSTEMS: Aside from elements discussed in the HPI, a comprehensive 10-point review of systems was reviewed and is negative. PMH: 1. End-stage renal disease (dialysis Monday, , Monday) 2. Type II diabetes mellitus 3. History of diastolic heart failure 4. Abdominal pain with recurrent ascites 5. Pancytopenia 6. Ventral hernia repair 10/06/16 7. Hysterectomy 8. Cholecystectomy 9. AV fistula placement SOCIAL HISTORY: Family at bedside. Lives in [place]. Retired. PHYSICAL EXAM: General:Patient is alert, in no acute distress. ENT:Eyes are normal to inspection. ENT inspection normal. Neck: Normal inspection. Full range of motion. Respiratory:No respiratory distress. Breath sounds normal bilaterally. Cardiovascular: 2/6 systolic murmur. Regular rate and rhythm. Strong peripheral pulses. Normal cap refill. Abdomen: Moderate abdominal distension. The abdomen is nontender to palpation. There are no peritoneal signs. There are normal bowel sounds. Back: Normal to inspection. No tenderness to palpation. Skin: Normal color. No rash. Warm and dry. Extremities: Normal appearance. Full range of motion. Neuro: Oriented x3. Normal motor function. Normal sensory function. ED Course: 66 year old female with history of recurrent ascites presents with gradually worsening abdominal pain and distension. Exam reveals moderate abdominal distension, nontender to palpation. 19:15 Spoke with radiology department. They are unable to perform ultrasound paracentesis procedure this evening. Plan to schedule for tomorrow or Monday. Discussed this with patient. Plan to discharge home in good condition. Radiology will call her for an appointment. Return precautions discussed. The patient and her family are comfortable with this plan. MDM: This patient presents with request for non-urgent therapeutic paracentesis. It is after-hours on the day before a major holiday, and we have no staff available to perform this procedure. We will arrange for outpatient treatment. General Time Seen by Provider: 02/01/17 18:34 Initial Vital Signs: Initial Vital Signs Temperature (C) 37.1 C 02/01/17 18:22 Heart Rate 73 02/01/17 18:22 Respiratory Rate 18 02/01/17 18:22 Blood Pressure 196/51 H 02/01/17 18:22 O2 Sat (%) 97 02/01/17 18:22 O2 Delivery Mode Room Air Allergies/Adverse Reactions: aspirin Allergy (Severe, Verified 02/01/17 18:21) SWELLING NSAIDS (Non-Steroidal Anti-Inflamma Allergy (Severe, Verified 02/01/17 18:21) Swelling/neck,face,throat morphine Allergy (Intermediate, Verified 02/01/17 18:21) HEADACHES Home Medications: Medication Instructions Recorded amLODIPine BESYLATE [Norvasc 10 mg 10 mg PO DAILY 08/24/15 (*)] Losartan Potassium [Cozaar 50 mg 100 mg PO DAILY 09/22/15 (*)] Levothyroxine [Synthroid 100 mcg 112 mcg PO DAILY 01/16/16 (*)] Acetaminophen [Tylenol 325mg (*)] 325 mg PO DAILY PRN 07/07/16 hydrALAZINE [Apresoline 50 mg (*)] 50 mg PO TID 07/07/16 LORazepam [Ativan (*)] 0.5 mg PO BID PRN #60 tab 10/22/16 Ondansetron Odt [Zofran Odt 4 mg 4 mg PO Q4HRS PRN #30 tab 10/22/16 (*)] Labetalol HCl 200 mg PO BID 01/18/17 Omeprazole 20 mg PO BID 01/18/17 Departure - Departure Disposition: Home, Routine, Self-Care Clinical Impression: Abdominal pain Ascites Qualifiers: Ascites type: other type Qualified Code(s): R18.8 - Other ascites Condition: Good Instructions: Ascites (ED), Abdominal Pain (ED) Additional Instructions: 1. The radiology department will call you to set up an appointment for your procedure. This will likely be Monday morning. 2. Follow up with your primary care physician in the next week for continued evaluation. 3. Return to the emergency department for fever, chest pain, shortness of breath , increasing pain or other worsening of condition. Referrals: HILDA AUGUSTE [Primary Care Provider] - As per Instructions Report Scribed for: Marco Iqbal Report Scribed by: Niya Carmen Date of Report: 02/01/17 Time of Report: 18:40 Physician Review and Approval Statement: Portions of this note were transcribed by an ED scribe. I personally performed the history, physical exam, and medical decision making; and confirm the accuracy of the information in the transcribed note.
[2017-02-01 19:34] VITALS: BP 182/60; PULSE 63; RESP 16; TEMP 97.9; O2SAT 98
== END 2017-02-01 19:34 | disposition home or self-care (01) ==
DX: R18.8 Other ascites (principal); E11.9 Type 2 diabetes mellitus without complications

== ENCOUNTER → 2017-02-03 | Outpatient (CLI) | payer OTHER ==
[~2017-02-03] MED LIST changes: -FLUMAZENIL 0.5 MG/5 ML MDV IVP ONE; -HEPARIN 1000 UNIT/1 ML MDV ONE; -IOPAMIDOL (ISOVUE-300) 100 ML BTL IV ONE; -LABETALOL HCL 5 MG/ML 20 ML MDV ONE; +LIDOCAINE 1% 300 MG/30 ML SDV ONE; -MIDAZOLAM 2 MG/2 ML VIAL ONE; -NALOXONE HCL 0.4 MG/ML INJ ONE; -PROTAMINE SULFATE 50 MG/5 ML VIAL IVP ONE; -fentaNYL 100 MCG/2 ML INJ ONE
== END ==
LOC: FIMAGING 11:18
PROVIDERS: ATTEND Emergency Medicine
PROC: 0W9F30Z Drainage of Abdominal Wall with Drainage Device, Percutaneous Approach (ICD-10-PCS; principal; 2017-02-03)
DX: R18.8 Other ascites (principal); R10.9 Unspecified abdominal pain

== ENCOUNTER 2017-06-02 06:23 | Day surgery (SDC) | payer OTHER ==
[2017-06-02] MEDS ORDERED: MIDAZOLAM 2 MG/2 ML VIAL IVP PRN (07:20)
[2017-06-02] MEDS ORDERED: GLUCAGON HCL 1 MG VIAL IVP PRN (07:20)
[2017-06-02] MEDS ORDERED: PROTAMINE SULFATE 50 MG/5 ML VIAL IVP PRN (07:20)
[2017-06-02] MEDS ORDERED: NALOXONE HCL 0.4 MG/ML INJ IVP PRN (07:20)
[2017-06-02] MEDS ORDERED: MEPERIDINE 25 MG/ML SYR IVP PRN (07:20)
[2017-06-02] MEDS ORDERED: fentaNYL 100 MCG/2 ML INJ IVP PRN (07:20)
[2017-06-02] MEDS ORDERED: FLUMAZENIL 0.5 MG/5 ML MDV IVP PRN (07:20)
[2017-06-02] MEDS ORDERED: HEPARIN 10,000 UNIT/10 ML MDV (1,000 UNIT/ML) IVP PRN (07:20)
[2017-06-02] MEDS ORDERED: ALTEPLASE 2 MG VIAL IVP PRN (07:20)
[2017-06-02] MEDS ORDERED: NS 1,000 ML IV SCH (07:30)
[2017-06-02] MEDS ORDERED: fentaNYL 100 MCG/2 ML INJ ONE (07:37)
[2017-06-02] MEDS ORDERED: NALOXONE HCL 0.4 MG/ML INJ ONE (07:37)
[2017-06-02 08:36] VITALS: RESP 18
[2017-06-02] MEDS ORDERED: IOPAMIDOL (ISOVUE-300) 100 ML BTL ONE (08:52)
--- NOTE | 2017-06-02 09:02 | PDPROPOC ---
Sedation Plan of Care ASA Classification: ASA 2 Planned drugs: fentanyl Mallampati Score: Class 2 Mallampati Reference Image:
--- NOTE | 2017-06-02 09:03 | PDGENHP ---
History & Physical Chief Complaint: maintenance of AVF History of Present Illness: esrd, LUE AVF req angioplasty on multiple prior occasions, currently no complaints Relevant Physical Exam: good thrill Cardiorespiratory Assessment: rrr, nl wob
[2017-06-02] MEDS ORDERED: LIDOCAINE 1% 300 MG/30 ML SDV ONE (09:23)
--- NOTE | 2017-06-02 09:50 | PDRADPN ---
Radiology Procedure Note Date of Procedure: 06/02/17 Radiologist: Momo Mack Anesthesia: IV Sedation Pre-op Diagnosis: LUE AVF maintenance Post-op Diagnosis: same Indication: maintain patency Procedure: fistulagram with venoplasty Finding(s): moderate recurrent subclavian stenosis treated with 10mm plasty. - pre-angioplasty gradient of 34->21mmhg. -post-angioplaty gradient of 26-> 23mmhg. decreased filling of collaterals. Inf/Abcess present in the surg proc area at time of surgery?: No EBL: Minimal Complications: none
[2017-06-02 10:46] VITALS: TEMP 97.3
[2017-06-02 11:20] VITALS: BP 166/65
[2017-06-02 11:47] VITALS: PULSE 62; O2SAT 93
== END 2017-06-02 11:35 | disposition home or self-care (01) ==
LOC: FIMAGING 06:23
PROVIDERS: ATTEND Radiology Diagnostic Radiology
PROC: 057F3ZZ Dilation of Left Cephalic Vein, Percutaneous Approach (ICD-10-PCS; principal; 2017-06-02 10:03)
PROC: 05763ZZ Dilation of Left Subclavian Vein, Percutaneous Approach (ICD-10-PCS; principal; 2017-06-02 10:03)
DX: T82.858A Stenosis of other vascular prosthetic devices, implants and grafts, initial encounter (principal); N18.6 End stage renal disease
CPT/HCPCS: 36902; 99152; 99153; C1769; C1887; C1725; J1644; J2310; J3010; Q9967